=== PATIENT | female | born 1945 | race Caucasian/White ===

== ENCOUNTER 2020-03-14 11:58 | Outpatient (CLI) | payer MEDICARE, OTHER, SELFPAY ==
--- NOTE | 2020-03-14 12:08 | MM_ITS ---
WS: [id number] BILATERAL DIGITAL SCREENING MAMMOGRAPHY WITH CAD CLINICAL INFORMATION: SCREENING HISTORY: Screening mammogram. Palpable lump right breast COMPARISON: None. TECHNIQUE: Bilateral CC and MLO views. FINDINGS: The breasts are composed of heterogeneous fibroglandular density tissue, which can limit the detectio n of small underlying mass lesions. Palpable marker lower inner right breast. Underlying asymmetric d ensity measuring 5 mm. Recommend further evaluation with spot compression views and ultrasound. Additional 7 mm partially obscured nodular density left breast best seen on the cc view, inner left b reast. Further evaluation with spot compression views and ultrasound. Vascular calcification. Lucent centered calcifications. MM/[place] [id number] IMPRESSION: BI-RADS: 0-Incomplete: Need additional imaging evaluation FOLLOW UP: Need Additional Imaging RECOMMEND FURTHER EVALUATION OF THE PALPABLE NODULE WITH RIGHT DIAGNOSTIC MAMMO GRAM AND ULTRASOUND. ADDITIONAL PARTIALLY OBSCURED DENSITY LEFT BREAST. RECOMMEND LEFT DIAGNOSTIC MA MMOGRAM AND ULTRASOUND.
--- NOTE | 2020-05-31 15:50 | PC.NURSE ---
Tried to call pt several times to schedule mammography extra views. No answer. Will keep trying.
--- NOTE | 2020-06-02 09:06 | PC.NURSE ---
Called patient regarding follow up of mammogram. I explained to the patient that the radiologist recommended for pt to get additional views of breast. Patient said she did not want to come back again for another mammogram. I explained to the pt this was important so we can look closer to make sure nothing was in the breast to worry about. I explained that it was nothing they did wrong the first time, but we just need to look at it from different angles to rule out anything worrisome to make sure she doesnt need a biopsy. Pt stated she would not come back for extra views, that she would just come back next year. Curtis VALLE
== END 2020-03-14 11:59 | disposition home or self-care (01) ==
LOC: RADSHAW 12:04
PROVIDERS: PCP Family Medicine; Visit Provider Family Medicine
DX: Z12.31 Encounter for screening mammogram for malignant neoplasm of breast (principal); R92.1 Mammographic calcification found on diagnostic imaging of breast
CPT/HCPCS: 77067

== ENCOUNTER 2021-11-14 11:44 | Outpatient (CLI) | payer MEDICARE, OTHER, SELFPAY ==
--- NOTE | 2021-11-14 12:04 | XRR_ITS ---
PROCEDURE INFORMATION: Exam: XR Chest Exam date and time: 11/14/2021 12:04 PM Age: 76 years old Clinical indication: Condition or disease; Lung condition and disease; Copd; Complications not specified; Shortness of breath TECHNIQUE: Imaging protocol: XR of the chest. Views: 2 views. COMPARISON: CR Ribs LEFT w PA Chest [id number] 07/11/2019 1:32 PM FINDINGS: Lungs: Unremarkable. No consolidation. Pleural spaces: Right lower lobe pleural effusion. No pneumothorax. Heart/Mediastinum: Unremarkable. No cardiomegaly. Bones/joints: Multiple left rib fractures are seen. There is kyphoplasty lower dorsal spine. And in the L2 vertebral body.. XR/XR chest 2V insp/exp [id number] IMPRESSION: 1. No acute findings. 2. Right lower lobe pleural effusion 3. Multiple left rib fractures. 4. Kyphoplasty lower dorsal spine and lumbar spine
== END 2021-11-14 11:45 | disposition home or self-care (01) ==
LOC: RAD 11:48
PROVIDERS: PCP Family Medicine; Visit Provider Internal Medicine
DX: J44.9 Chronic obstructive pulmonary disease, unspecified (principal); J90 Pleural effusion, not elsewhere classified; S22.42XA Multiple fractures of ribs, left side, initial encounter for closed fracture; X58.XXXA Exposure to other specified factors, initial encounter
CPT/HCPCS: 71046

== ENCOUNTER 2021-11-22 10:47 | Inpatient (IN) | payer MEDICARE, OTHER, SELFPAY ==
[2021-11-22] VITALS (12 sets, daily range): BP systolic 151–179; BP diastolic 72–118; PULSE 96–113; RESP 16–30; TEMP 36.3–36.7; O2SAT 90–99; BMI 33.5
--- NOTE | 2021-11-22 11:40 | XR_ITS ---
WS: [id number] Exam: XR chest 1V portable [id number] Date/Time of Exam: 11/22/2021 11:44 AM Reason For Exam: dyspnea/cough Comparison 11/14/2021. There is cardiac enlargement with pulmonary vascular congestion suggesting CHF. Bibasal pleural effus ions are noted. No pneumothorax. The mediastinum and bony thorax are unremarkable. Monitoring leads s uperimpose the chest. Signs of vertebral plasty involving several lower thoracic vertebra. Old left r ib fractures. XR/XR chest 1V portable [id number] IMPRESSION: 1. Cardiac enlargement with pulmonary edema and bibasal pleural effusions sugge sting CHF.
[2021-11-22 12:04] LABS: Basophils # 0.1 10^3/uL (0.0-0.1); Basophils % 0.9 %; Eosinophils # 0.1 10^3/uL (0.0-0.8); Eosinophils % 0.9 %; Hematocrit 43.5 % (37.0-47.0); Lymphocytes # 1.1 10^3/uL (0.8-4.8); Lymphocytes % 11.9 %; Mean Corpuscular HGB Conc 32.2 g/dL (30.0-36.0); Mean Corpuscular Hemoglobin 29.5 pg (28.0-34.0); Mean Corpuscular Volume 91.8 fl (81-99); Mean Platelet Volume 10.7 fL (7.4-10.4); Monocytes # 0.6 10^3/uL (0.2-0.9); Monocytes % 6.8 %; Neutrophils % 79.2 %; Nucleated Red Blood Cells % 0 %; Platelet Count 235 10^3/cmm (130-400); Red Blood Count 4.74 10^6/uL (4.1-5.3); Red Cell Distribution Width 15.6 % (12.1-15.1); White Blood Count 9.1 10^3/uL (4.0-10.0)
--- NOTE | 2021-11-22 12:05 | ED_ITS ---
HPI - SOB/Dyspnea General: Chief Complaint: Shortness of Breath/Dyspnea Stated Complaint: DIFFICULTY BREATHING/ EDEMA Time Seen by Provider: 11/22/21 10:48 Source: patient Mode of arrival: EMS Limitations: no limitations History of Present Illness: HPI Narrative: 68-year-old female presents emergency room complaining of shortness of breath with increased swelling legs and feet over the last several days Patient received a nebulizer treatment at home additionally was given 6mg of Decadron in route. She has been hypertensive at home as well. She normally is not on oxygen. On arrival here she is tachycardic and conversationally dyspneic still requiring 2 L by nasal cannula she denies any fever she has had increased productive cough and notes significant increased orthopnea. Denies any chest pain at this time. Patient is a former smoker. No known history of heart disease. MD elicited complaint: shortness of breath Pertinent past history: COPD and congestive heart failure Onset (ago): day(s) Timing: intermittent and progressively worsening Severity: moderate Exacerbating factors: lying flat and coughing Relieving factors: oxygen and rest Known history of: COPD Associated symptoms: Reports nausea and orthopnea; Deny abdominal pain, chest congestion, chest pain, cough, diaphoresis, dizziness, extremity pain, fever(s), hemoptysis, lightheadedness, myalgias, palpitations, paresthesias, polydipsia, polyuria, rash, sense of impending doom, syncope or vomiting Treatment prior to arrival: none Review of Systems Const: Reports: change in appetite; Denies: fever(s), chills or diaphoresis Card: Reports: orthopnea; Denies: chest pain, palpitations, lightheadedness or syncope Resp: Reports: dyspnea, productive cough and wheezing; Denies: hemoptysis or chest congestion GI: Reports: nausea; Denies: abdominal pain or vomiting : Denies: flank pain, difficulty voiding, dysuria, urinary frequency or urinary urgency Musc: Denies: back pain or extremity pain Skin/Breast: Denies: rash or pruritus Neuro: Denies: dizziness Endo: Reports: tired all the time; Denies: polyuria or polydipsia PFS ED PFSH: Medical History Age related osteoporosis Cardiac arrest with successful resuscitation Cardiac arrest with ventricular fibrillation Chronic obstructive pulmonary disease History of rib fracture left 6, 7, 8 Hypertension Macular degeneration Nicotine dependence, cigarettes, with other nicotine-induced disorders Osteoarthritis Surgical History H/O total knee replacement right History of total hip replacement right History of tubal ligation Family History Mother CAD (coronary artery disease) in 70s from heart attack Father Cancer lung Social History Smoking and tobacco status: current every day smoker cigarettes [ Other cigarette details: Smoked since her teenage years (about 58 years)] Alcohol intake: never Substance/Drug Use: never Household members: none Number of children: 2 Physical Exam Const: ORIENTATION/CONSCIOUSNESS: Yes awake, Yes oriented to person, Yes oriented to place and Yes oriented to time HENMT: COMMON NORMALS: normocephalic, atraumatic and hearing grossly normal bilaterally HEAD & SCALP: normocephalic and atraumatic Neck/C-Spine: COMMON NORMALS: no JVD Resp: COMMON NORMALS: normal respiratory effort, No retractions, No use of accessory muscles and clear to auscultation bilaterally AUSCULTATION: clear to auscultation bilaterally Cardio: COMMON NORMALS: no JVD, regular rate, regular rhythm and No murmurs present (Cardio) RATE: regular rate RHYTHM: regular rhythm GI: COMMON NORMALS: Soft to palpation and No hepatosplenomegaly present AUSCULTATION: Yes normoactive bowel sounds PALPATION: Yes Soft to palpation, No Tenderness to palpation present (GI), No Guarding due to palpation present (GI) and Yes No hepatosplenomegaly present Extremity: COMMON NORMALS: normal to inspection, capillary refill normal and no calf tenderness Neuro: SENSORIUM/ORIENTATION: Yes oriented to person, Yes oriented to place and Yes oriented to time Course Vital Signs: Vital signs: Vital Signs Temperature 97.5 F L 11/25/21 08:00 Pulse Rate 100 11/25/21 12:43 Respiratory Rate 22 H 11/25/21 12:39 Blood Pressure 145/72 11/25/21 12:00 Pulse Oximetry 92 11/25/21 12:39 MDM - SOB/Dyspnea Medical Decision Making Patient injuries to be a new onset congestive heart failure was diuresed in the emergency room initially treated. She has COPD. Discussed with hospitalist will admit. Orders and imaging reviewed. Dr. Fitzgerald will complete admission. CT of chest showed no PE. Medical Records I reviewed the patient's medical records. Lab Data I reviewed the patient's lab results. : 11/25/21 08:30 11/25/21 08:30 Labs/Radiology: Radiology Impressions Chest CTA 11/23/21 06:00 IMPRESSION: 1. No evidence of pulmonary embolus. 2. Cardiomegaly. Coronary artery calcification. 3. Findings consistent with congestive heart failure with small effusions and mild interstitial edema. Chest X-Ray 11/25/21 06:26 IMPRESSION: No substantial interval change. Similar cardiomegaly with patchy bibasilar airspace opacities and small bilateral pleural effusions. Laboratory Results WBC 9.1 10^3/uL (4.0-10.0) 11/22/21 10:27 RBC 4.74 10^6/uL (4.1-5.3) 11/22/21 10:27 Hgb 14.0 g/dL (11.5-15.3) 11/22/21 10:27 Hct 43.5 % (37.0-47.0) 11/22/21 10:27 MCV 91.8 fl (81-99) 11/22/21 10:27 MCH 29.5 pg (28.0-34.0) 11/22/21 10:27 MCHC 32.2 g/dL (30.0-36.0) 11/22/21 10:27 RDW 15.6 % (12.1-15.1) H 11/22/21 10:27 Plt Count 235 10^3/cmm (130-400) 11/22/21 10:27 MPV 10.7 fL (7.4-10.4) H 11/22/21 10:27 Neut % (Auto) 79.2 % 11/22/21 10:27 Lymph % (Auto) 11.9 % 11/22/21 10:27 [place] % (Auto) 6.8 % 11/22/21 10:27 Eos % (Auto) 0.9 % 11/22/21 10:27 Baso % (Auto) 0.9 % 11/22/21 10: Neut # (Auto) 7.20 10^3/uL (1.8-7.7) 11/22/21 10: Lymph # (Auto) 1.1 10^3/uL (0.8-4.8) 11/22/21 10: [place] # (Auto) 0.6 10^3/uL (0.2-0.9) 11/22/21 10: Eos # (Auto) 0.1 10^3/uL (0.0-0.8) 11/22/21 10: Baso # (Auto) 0.1 10^3/uL (0.0-0.1) 11/22/21 10: Nucleated RBC % (auto) 0 % 11/22/21 10: Nucleated RBCs # 0.0 /100WBC 11/22/21 10: Specimen Type Arterial 11/22/21 12:09 Sample Site Radial, left 11/22/21 12:09 ABG pH 7.39 (7.35-7.45) 11/22/21 12:09 ABG pCO2 41.6 mmHg (35-45) 11/22/21 12:09 ABG pO2 62.7 mmHg (80.0-100.0) L 11/22/21 12:09 ABG HCO3 25.4 mmol/L (22-26) 11/22/21 12:09 ABG O2 Saturation 92.9 11/22/21 12:09 ABG Base Excess 0.4 mmol/L (-2.0-2.0) 11/22/21 12:09 Tenzin Test Pos 11/22/21 12:09 A-a O2 Gradient 11.1 mmHg (5-10) H 11/22/21 12:09 Hematocrit 43.6 % (37-47) 11/22/21 12:09 Hgb O2 Saturation 88.2 % (95-100) L 11/22/21 12:09 Carboxyhemoglobin 4.1 %THgb (0.4-20.1) 11/22/21 12:09 Methemoglobin 0.9 % (0.4-1.5) 11/22/21 12:09 Total Hemoglobin 14.2 g/dL (12-16) 11/22/21 12:09 Sodium 138.0 mmol/L (131-143) 11/22/21 12:09 Potassium 3.9 mmol/L (3.5-5.0) 11/22/21 12:09 Glucose 111.0 mg/dL (70-115) 11/22/21 12:09 Ionized Calcium 1.3 mmol/L (1.1-1.4) 11/22/21 12:09 O2 Delivery Device Nc 11/22/21 12:09 O2 Liters/Min 2.0 % 11/22/21 12:09 FiO2 28.0 % 11/22/21 12:09 Oil Rigger ID Bd 11/22/21 12:09 Sodium 137 mmol/L (136-145) 11/22/21 10:27 Potassium 3.8 mmol/L (3.5-5.1) 11/22/21 10:27 Chloride 97 mmol/L (98-107) L 11/22/21 10:27 Carbon Dioxide 24 mmol/L (22-29) 11/22/21 10:27 Anion Gap 19.8 (5-19) H 11/22/21 10:27 BUN 17 mg/dL (8-23) 11/22/21 10:27 Creatinine 1.0 mg/dL (0.5-0.9) H 11/22/21 10:27 GFR Calculation Not Reportable 11/22/21 10:27 Glucose 106 mg/dL (65-115) 11/22/21 10:27 Calculated Osmolality 286 mOsm/kg (285-295) 11/22/21 10:27 Calcium 10.2 mg/dL (8.5-10.5) 11/22/21 10:27 Total Bilirubin 0.5 mg/dL (0.15-1.2) 11/22/21 10:27 AST 35 U/L (0-32) H 11/22/21 10:27 ALT 40 U/L (0-33) H 11/22/21 10:27 Alkaline Phosphatase 134 IU/L (35-105) H 11/22/21 10:27 Troponin T Baseline 32 ng/L (0-10) H 11/22/21 14:42 NT-Pro-B Natriuret Pep 80382 pg/mL (0-450) H 11/22/21 10:27 Total Protein 7.0 g/dL (6.6-8.7) 11/22/21 10:27 Albumin 3.8 g/dL (3.5-5.2) 11/22/21 10:27 Globulin 3.2 g/dL (1.3-4.6) 11/22/21 10:27 Procalcitonin 0.06 ng/mL (0-0.5) 11/22/21 10:27 Discharge Plan Discharge Patient Disposition: Admitted As Inpatient Admit Provider: Eileen Kearney Clinical Impression: CHF (congestive heart failure), Acute exacerbation of chronic obstructive airways disease, Hypertension Condition: Stable Coding Level of Care Code ED Shopping Investigator for Chg Fwd Exam Detailed
[2021-11-22] MEDS: ipratropium-albuterol 3 mL Neb INHALATION ×2 (12:14→21:05)
[2021-11-22 12:17] LABS: ABG PCO2 41.6 mmHg (35-45); ABG PH Result 7.39 (7.35-7.45); Alveolar-Arterial Oxygen Gradi 11.1 mmHg (5-10); Arterial Blood Gas Hematocrit 43.6 % (37-47); Base Excess ABG 0.4 mmol/L (-2.0-2.0); Blood Gas Allen Test Pos; Blood Gas Operator Identificat BD; Blood Gas Sample Site Radial, left; Blood Gas Sample Type Arterial; Carboxyhemoglobin 4.1 %THgb (0.4-20.1); HCO3 ABG 25.4 mmol/L (22-26); HGB O2 Sat 88.2 % (95-100); Ionized Calcium Level - ABG 1.3 mmol/L (1.1-1.4); Methemoglobin 0.9 % (0.4-1.5); Oxygen Device NC; Oxygen Saturation ABG 92.9; PO2 ABG 62.7 mmHg (80.0-100.0); Potassium Level - ABG 3.9 mmol/L (3.5-5.0); Total Hemoglobin 14.2 g/dL (12-16)
[2021-11-22 13:11] LABS: Alanine Aminotransferase 40 U/L (0-33); Albumin Level 3.8 g/dL (3.5-5.2); Alkaline Phosphatase 134 IU/L (35-105); Anion Gap 19.8 (5-19); Aspartate Amino Transferase 35 U/L (0-32); Blood Urea Nitrogen 17 mg/dL (8-23); Calcium 10.2 mg/dL (8.5-10.5); Carbon Dioxide 24 mmol/L (22-29); Chloride 97 mmol/L (98-107); Globulin 3.2 g/dL (1.3-4.6); Glucose 106 mg/dL (65-115); NT Pro B Type Natriuretic Pept 22267 pg/mL (0-450); Osmolality Calculated 286 mOsm/kg (285-295); Potassium 3.8 mmol/L (3.5-5.1); Sodium 137 mmol/L (136-145); Total Bilirubin 0.5 mg/dL (0.15-1.2)
--- NOTE | 2021-11-22 14:11 | ECG_ITS ---
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 Measurements Intervals [place] Rate: 106 P: 62 WA: 171 QRS: -31 QRSD: 92 T: 60 QT: 369 QTc: 491 Interpretive Statements SINUS TACHYCARDIA WITH OCCASIONAL VENTRICULAR PREMATURE COMPLEXES WITH FREQUENT SUPRAVENTRICULAR PREMATURE COMPLEXES LEFT AXIS DEVIATION [QRS AXIS < -30] POSSIBLE ANTERIOR MYOCARDIAL INFARCTION , OF INDETERMINATE AGE [30 ms Q WAVE IN V3/V4, OR R < 0.2 mV IN V4] Compared to ECG 11/19/2017 20:07:06 Left-axis deviation now present Myocardial infarct finding now present Sinus rhythm no longer present T-wave abnormality no longer present Electronically Signed On 11-22-2021 22:14:44 CDT by Jona Crawford M.D. [id number]
--- NOTE | 2021-11-22 14:20 | PC.PHAR ---
pt and pts friend states the pt takes care of her own medications-pt states she use to get a prolia shot states she had a scan but never heard back if she was going to still take -pt states she takes the medications entered
[2021-11-22] MEDS: FUROsemide 10 mg/mL SDV 10mL 60 MG IVP (14:28)
[2021-11-22 15:14] LABS: Troponin(5th) Baseline 32 ng/L (0-10)
--- NOTE | 2021-11-22 15:38 | P.HP_ITS ---
Providers/Chief Complaint Admitting Physician: Eileen Kearney MD Primary Care Provider: Kelley Jimenez MD Chief Complaint: DIFFICULTY BREATHING/ EDEMA History of Present Illness Surekha Villalobos is a 76 year old female who presented to the emergency room via EMS due to difficulty breathing. Patient is a longtime smoker and has had some degree of shortness of breath and wheezing intermittently for soome time. Never seemed to last too long. She describes, however, her breathing getting slowly worse over the past 6 months or so. Over the last 3 months her breathing has more rapidly declined. She resides in a typical single wide trailer and used to be able to walk around that trailer without difficulty or having to rest frequently. Now she cannot even walk half the distance without having to stop, sometimes even a couple of times, to catch her breath on way to bathroom which is near the middle of the trailer. She has laos been having increasing lower extremity edema, orthopnea and PND. Sometime within the last month she was prescribed puffers by her report. They have not really provided much help. She has not been on recent steroids and antibiotics. She has tried several over the counter options without success, including Breathe Right or similar strips. She does describe some episodes of chest pain occurring after using her puffers but denies chest pain otherwise. No reports of nausea or vomiting. Has not had any recent fever or chills. She has been COVID vaccinated. Denied any history of COVID. She lives alone and until recently has been able to take care of her activities of daily living with some assistance to go to store and the like. She admits that she now spends most of her time sitting in a chair with her legs hanging down. As her edema has worsened her breathing has worsened. Today she says she is wore out from all of this prompting the ER visit. On arrival to the emergency room, patient was noted to be tachycardic and hypoxic. She is not chronically on oxygen but was requiring oxygen at 2 L flow. She has never req uired oxygen previously. Clinically she appeared to have fluid overload. She was given some Lasix as well as breathing treatments and is being admitted for further care. No personal history of coronary artery disease. She does have a history of hypertension. No recent medication changes beyond breathing medicines. No known kidney disease. Has not been diagnosed with heart failure in the past. Review of Systems Const: Reports: change in appetite (Decreased), fatigue and malaise; Denies: fever(s) or chills Eyes: Reports: other (macular degeneration) ENMT: Denies: throat pain or nasal congestion Card: Reports: chest pain (after using inhalers, not other times), edema, dyspnea on exertion and orthopnea; Denies: palpitations or syncope Resp: Reports: dyspnea, productive cough, non-productive cough and wheezing; Denies: pain on inspiration, change in phlegm color or hemoptysis GI: Reports: nausea and diarrhea; Denies: abdominal pain, vomiting, constipation, hematochezia or melena : Reports: urinary incontinence; Denies: difficulty voiding or hematuria Musc: Reports: back pain and muscle weakness Skin/Breast: Reports: sores (on nose, from use of breathe right strips last couple weeks); Denies: rash or pruritus Neuro: Reports: weakness in extremities (generalized) and difficulty walking (due to breathing issues); Denies: headache(s) or numbness in extremities Psych: Reports: depression ( wore out from breathing trouble); Denies: anxiety Endo: Reports: tired all the time and flushing Mason/Lymph: Denies: easy bruising or easy bleeding All/Imm: Denies: seasonal rhinorrhea Medications/Allergies Home Medications Medication Instructions Recorded Confirmed Last Taken Type calcium carbonate 600 mg calcium 1,200 mg PO BEDTIME 11/03/21 11/22/21 Unknown History (1,500 mg) tablet (Calcium) cholecalciferol (vitamin D3) 50 50 mcg PO DAILY 11/03/21 11/22/21 Unknown History mcg (2,000 unit) capsule cinnamon bark 500 mg capsule 500 mg PO .EIGHT TIMES A DAY 11/03/21 11/22/21 Unknown History coenzyme Q10 100 mg capsule (Co 100 mg PO QAM 11/03/21 11/22/21 Unknown History Q-10) albuterol sulfate 90 mcg/actuation 1 inh INHALATION QID PRN #8.5 g 11/14/21 11/22/21 Unknown Rx aerosol inhaler (ProAir HFA) budesonide-formoterol HFA 160 2 puff INHALATION BID #10.2 g 11/14/21 11/22/21 Unknown Rx mcg-4.5 mcg/actuation aerosol inhaler (Symbicort) tiotropium bromide 1.25 2 puff INHALATION DAILY #4 g 11/14/21 11/22/21 Unknown Rx mcg/actuation mist for inhalation (Spiriva Respimat) Vitamin B-12 1 tab PO DAILY 11/22/21 11/22/21 Unknown History aspirin 325 mg tablet 325 mg PO DAILY 11/22/21 11/22/21 Unknown History ciaran (Zingiber officinalis) 550 550 mg PO DAILY 11/22/21 11/22/21 Unknown History mg capsule ginkgo biloba 1 tab PO DAILY 11/22/21 11/22/21 Unknown History green tea leaf extract (Green Tea) 1 cap PO DAILY 11/22/21 11/22/21 Unknown History multivitamin 1 tab PO DAILY 11/22/21 11/22/21 Unknown History niacin 1 tab PO QAM 11/22/21 11/22/21 Unknown History vitamin B complex 1 tab PO DAILY 11/22/21 11/22/21 Unknown History Allergies Allergy/AdvReac Type Severity Reaction Status Date / Time acetaminophen [From [place]] Allergy ALGY-Difficulty Verified 11/22/21 14:02 Breathing codeine Allergy ALGY-Difficulty Verified 11/22/21 14:02 Breathing hydrocodone [From [place]] Allergy ALGY-Difficulty Verified 11/22/21 14:02 Breathing PFSH Acute PFSH: Medical History (Updated 11/22/21 @ 19:00 by Eileen Kearney MD) Age related osteoporosis Chronic obstructive pulmonary disease History of rib fracture left 6, 7, 8 Hypertension Macular degeneration Nicotine dependence, cigarettes, with other nicotine-induced disorders Osteoarthritis Surgical History (Updated 11/22/21 @ 16:52 by Eileen Kearney MD) 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 Mother CAD (coronary artery disease) in 70s from heart attack Father Cancer lung Social History (Updated 11/22/21 @ 17:10 by Eileen Kearney MD) Smoking and tobacco status: current every day smoker cigarettes [ Other cigarette details: Smoked since her teenage years (about 58 years)] Alcohol intake: never Substance/Drug Use: never Household members: none Number of children: 2 Vitals/I&O/Wt Last Vital Signs Temp 98.1 F 11/22/21 10:53 Pulse 111 H 11/22/21 14:32 Resp 16 11/22/21 14:32 BP 179/82 11/22/21 14:32 Pulse Ox 96 11/22/21 14:32 Weight last 48 hrs Weight 88.451 kg Physical Exam Narrative: Constitutional: Awake and alert, acutely and chronically ill-appearing, initially appeared to not be able to fixate where I was in the room but after a few moments seem to not have further difficulty with this, history is obtained from her though it takes her some time to answer questions due to difficulty breathing and soft voice, cooperative HEENT: Normocephalic, atraumatic, extraocular movements are intact, pupils are equally round and reactive to light, nasopharynx is clear, oropharynx with moist mucous membranes, upper and lower dentures noted Neck: Supple, JVD noted up to the earlobe with prominent venous waves Respiratory: Inspiratory and expiratory wheezes noted bilaterally, mild supraclavicular retractions and intercostal retractions, no abdominal breathing although current positioning in ER bed may be impacting this, able to talk in approximately 3-5 word groupings right now pausing to take of breath at times, no pursed lip breathing appreciated, no nasal flaring, sitting up in bed. Increased dyspnea with supine positioning. Cardiovascular: Tachycardic, distant heart sounds obscured by pulmonary sounds, regular, no discernible murmurs or rubs 1+ radial pulses, dorsalis pedis pulses are weaker than radial pulses but palpable, brisk capillary refill is noted Abdomen: Soft, quite rounded in upright positioning in ER bed though not as discernible when laid more supine, bowel sounds, nontender : Normal external genitalia, minimal erythema in intertriginous areas more so on the right than the left, Rubio catheter noted with approximately 1700 mL of urine, clear and faintly yellow Extremities: 4+ pitting edema, no weeping noted, general tenderness in areas of edema, right lower extremity is slightly larger than left lower extremity at the mid ward but less than a centimeter difference, no appreciable focal calf ten derness or palpable cords, both feet are cool to touch but not cyanotic, clubbing noted Skin: Chronic stasis changes with some areas of desquamating skin appreciated, no areas of significant warmth, scattered erythema but not in a discernible pattern, no large areas of bruising appreciated Neuro: Speech clear, visual murillo appear grossly intact, face symmetric, speech is clear, handgrip is equal, sensation is intact and equal to light touch at b oth feet Psych: Seems down, affect consistent with current clinical condition Urinary Catheter Management: Rubio: Cath Placed During This Visit: yes Urinary Catheter Date of Insertion: 11/22/21 Urinary Catheter Time of Insertion: 14:33 Data : 11/22/21 10:27 11/22/21 10:27 A&P Assessment and plan (1) CHF (congestive heart failure): New diagnosis, specific type unknown at this time, decompensated presently, acute IV diuresis Potassium replacement as indicated Rubio catheter for close monitoring of urine output Daily weights Echocardiogram Add LOBO inhibitor Serial cardiac enzymes and EKGs Status: Acute Qualifiers: Heart failure chronicity: acute (2) Chronic obstructive pulmonary disease: Chronic issue that appears to have been recently diagnosed, with recent initiation of scheduled and as needed inhalers. On examination appears acutely exacerbated, though wheezing could be cardiac or pulmonary. Scheduled and as needed duo nebs Budesonide Continue systemic steroids, received 125 of Solu-Medrol in the emergency room Check procalcitonin Prior to discharge for need to evaluate if meets criteria for home oxygen Status: Chronic Qualifiers: COPD type: COPD with acute exacerbation Qualified Code(s): J44.1 - Chronic obstructive pulmonary disease with (acute) exacerbation (3) Hypertension: Reports a longstanding history of hypertension but also indicates that she takes niacin for hypertension. Provided history indicates primary hypertension diagnosis but could also be secondary. Monitor blood pressure response to IV diuresis and low-dose LOBO inhibitor Adjust discharge medication plan as indicated by clinical course Status: Chronic Qualifiers: Hypertension type: primary hypertension Qualified Code(s): I10 - Essential (primary) hypertension (4) Nicotine dependence, cigarettes, with other nicotine-induced disorders: ~60 pack year history, does express interest in wanting to quit, has tried many times unsuccessfully really making it more than a couple of days Nicotine patch if needed Encouraged repeated attempts at smoking cessation Status: Chronic Plan Mild elevation in transaminases, presently feel secondary to congestion Inpatient admission Check TSH Check D-dimer Check lipid panel Reduce daily aspirin to 81 mg Beyond continuing similar respiratory medications, I have held all vitamins and herbal medications that she normally takes presently, will need to review utility of continued use of various agents pending clinical outcomes. For exam ple whether or not patient should continue niacin, particularly with side effect profile at her age. Looking at some of the herbal medicines that she takes it would also be worthwhile to know if she takes pure formulations or if they may have additives that might impact blood pressures. Check urinalysis PPI for GI prophylaxis Lovenox for DVT prophylaxis Supportive care otherwise Further plans pending clinical course Patient's daughter KOURTNEY OBRIEN [phone] her way here from [facility]. Family had originally planned to come and get Mrs. Villalobos at the end of December to take her back to [place] to live with Kourtney. With progressive decline they had hoped to come sooner in December but with the acute issues left [place] today 11/22/2021. They are heading to [place] and will plan on taking Mrs. Villalobos back to [place] with them when she is medically stable for discharge. Findings, concerns and plans were discussed with both Mrs. Rodriguez as well as her daughter although I lost connection to her daughter several times and had poor connection as well with them being on the road. She did seem to understand the general plan as described. We will ask case management to see to assist with potential disposition planning given anticipated discharge to another state. We will need to facilitate transfer of records and medications and other instructions for discharge to whomever will be assuming care in [place] if we are able. CODE STATUS was discussed and patient requests that we talked to the daughter if such a situation were to arise. I have entered a full code diagnosis based on this discussion. Attestations Medical Necessity Statement*: Anticipated stay greater than two midnights in a patient presenting with volume overload, significant dyspnea requiring oxygen therapy and other findings as described. Clinically looks to have new onset CHF, acutely decompensated. E jection fraction unknown at this point in time but given apparent total body volume overload will require several days of diuresis in addition to other care described. High risk of rapid clinical decline up to and including the possibility of without inpatient care, treatment and monitoring. Coding Level of Care Code Acute Investigator Welfare for [place] Diagnoses CHF (congestive heart failure) I50.9 Heart failure chronicity: acute Chronic obstructive pulmonary disease J44.1 COPD type: COPD with acute exacerbation Nicotine dependence, cigarettes, with other nicotine-induced disorders F17.218 Hypertension I10 Hypertension type: primary hypertension
--- NOTE | 2021-11-22 16:11 | ECG_ITS ---
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 Measurements Intervals [place] Rate: 98 P: 51 NH: 169 QRS: -20 QRSD: 91 T: 6 QT: 381 QTc: 487 Interpretive Statements SINUS RHYTHM WITH SINUS ARRHYTHMIA NONSPECIFIC T-WAVE ABNORMALITY Compared to ECG 11/22/2021 14:15:24 T-wave abnormality now present Sinus tachycardia no longer present Ventricular premature complex(es) no longer present Left-axis deviation no longer present Myocardial infarct finding no longer present Electronically Signed On 11-22-2021 22:23:31 CDT by Jona Crawford M.D. [id number]
--- NOTE | 2021-11-22 16:27 | USCV_ITS ---
[place], [place] Age: 76 Gender: F : 1945 Exam Date: 11/22/2021 18:53 Ordering Phys: Pacheco Lantigua DO Technologist: MERCED Exam Location: [facility] [place] Indication: CHF BP: 172 / 81 HR: 98 Rhythm: Sinus Technical Quality: Adequate MEASUREMENTS (Male / Female) Normal Values 2D ECHO LV Diastolic Diameter PLAX 5.6 cm 4.2 - 5.9 / 3.9 - 5.3 cm LV Systolic Diameter PLAX 4.8 cm IVS Diastolic Thickness 1.0 cm 0.6 - 1.0 / 0.6 - 0.9 cm IVS Systolic Thickness 1.5 cm LVPW Diastolic Thickness 1.2 cm 0.6 - 1.0 / 0.6 - 0.9 cm LVPW Systolic Thickness 1.6 cm LVOT Diameter 2.0 cm LV Ejection Fraction 2D Teich 27.8 % LV Ejection Fraction MOD 2C 19.1 % LV Ejection Fraction 2C AL 19.4 % LA Diameter 3.7 cm LA Width 3.8 cm LA Height 5.4 cm RA Width 5.3 cm RA Height 5.6 cm Aorta at Sinotubular Diameter 1.9 cm M-MODE Aortic Annulus Diameter 2.8 cm LA Ao Ratio MM 1.3 MV E Point Septal Separation 1.8 cm DOPPLER AV Peak Velocity 199.0 cm/s LVOT Peak Velocity 117.0 cm/s AV Area Cont Eq vti 2.1 cm squared AV Area Cont Eq pk 1.9 cm squared MV Peak Velocity 91.0 cm/s MV Area PHT 5.9 cm squared Mitral E to A Ratio 0.9 MV E' Velocity 83.0 cm/s TR Peak Velocity 173.9 cm/s TR Peak Gradient 12.1 mmHg TR Mean Velocity 105.4 cm/s TR Mean Gradient 6.6 mmHg TR Velocity Time Integral 27.2 cm Right Atrial Pressure 10.0 mmHg Pulmonary Artery Systolic Pressu 22.1 mmHg PV Peak Velocity 87.0 cm/s RV Acceleration Time 0.1 s RV Ejection Time 0.3 s RV AcT/ET 0.4 FINDINGS Left Ventricle Mildly dilated left ventricular cavity size. Moderately decreased left ventricular systolic function. Left ventricular ejection fraction is estimated at 30 %. Global left ventricular hypokinesis. Abnormal septal motion. Right Ventricle Normal right ventricular size and systolic function. RVSP could not be calculated due to incomplete tricuspid regurgitation velocity profile. Right Atrium Mildly increased right atrial size. Left Atrium Mildly increased left atrial size. Mitral Valve Moderate mitral annular calcification. Thickened mitral valve. Papillary calcification noted. No mitral valve stenosis. Trace mitral valve regurgitation. Aortic Valve Thickened probably trileaflet aortic valve. Aortic valve sclerosis. No aortic valve stenosis. Moderate aortic valve regurgitation. Tricuspid Valve Structurally normal tricuspid valve. Trace tricuspid valve regurgitation. Pulmonic Valve Structurally normal pulmonic valve. No pulmonary valve stenosis. No pulmonary valve regurgitation. Pericardium Trivial pericardial effusion. No evidence of hemodynamic compromise. Aorta Normal-sized aortic root. Plaque noted in aortic root. CONCLUSIONS 1. Mildly dilated left ventricular cavity size. Moderately decreased left ventricular systolic function. Left ventricular ejection fraction is estimated at 30 %. Global left ventricular hypokinesis. Abnormal septal motion. 2. Normal right ventricular size and systolic function. 3. Aortic valve sclerosis with no stenosis. Moderate aortic valve regurgitation. 4. No prior similar studies to compare. Daisy Campoverde MD (Electronically Signed) Final Date: 23 November 2021 13:51 S
--- NOTE | 2021-11-22 16:42 | PC.NURSE ---
hr: 113 o2: 95 nc 2l rr: 36 bp: 180/85 temp: 97.9 oral
--- NOTE | 2021-11-22 16:45 | PC.NURSE ---
patient weight is 195.0 lbs approximately 5'4
[2021-11-22 17:15] LABS: Add Urine Microscopic? NO; Charge for UA Resulting for Rev
[2021-11-22 17:30] LABS: Bilirubin Urine Neg (Negative); Blood Urine Neg (Negative); Glucose Urine UA Norm (Normal); Ketones Urine Negative (Negative); Leukocyte Esterase Urine Negative (Negative); Nitrate Urine Negative (Negative); Protein Urine Neg (Negative); Specific Gravity, Urine 1.005 (1.005-1.030); Urine Appearance Clear (CLEAR); Urine Color Colorless (Yellow); Urobilinogen Urine Neg (Negative); pH Urine 6 (5-7)
[2021-11-22 17:38] LABS: Procalcitonin 0.06 ng/mL (0-0.5)
[2021-11-22] MEDS: enoxaparin 40 mg/0.4 mL Syringe SUBCUT (17:51)
[2021-11-22] MEDS: docusate sodium 100 mg Capsule PO (17:51)
[2021-11-22] MEDS: potassium chloride ER 20 mEq Tablet PO (17:51)
[2021-11-22 18:11] LABS: D Dimer 2.65 ug/mIFEU (0-0.59)
[2021-11-22 18:15] LABS: Troponin 5 2HR 30.44 ng/L (0-10)
[2021-11-22 18:16] LABS: Troponin 5 2HR Delta -1.56 ABS# (0-10)
[2021-11-22] MEDS: lisinopril 2.5 mg Tablet PO (19:18)
--- NOTE | 2021-11-22 20:11 | ECG_ITS ---
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 Measurements Intervals [place] Rate: 97 P: 51 LA: 175 QRS: -19 QRSD: 93 T: -35 QT: 369 QTc: 470 Interpretive Statements SINUS RHYTHM POSSIBLE ANTERIOR MYOCARDIAL INFARCTION , OF INDETERMINATE AGE [30 ms Q WAVE IN V3/V4, OR R < 0.2 mV IN V4] Compared to ECG 11/22/2021 17:01:20 Myocardial infarct finding now present Sinus arrhythmia no longer present T-wave abnormality no longer present Electronically Signed On 11-22-2021 22:19:16 CDT by Jona Crawford M.D. [id number]
[2021-11-22] MEDS: budesonide 0.5 mg/2 mL Neb INHALATION (21:05)
[2021-11-22 21:19] LABS: Troponin 5 6HR 28.81 ng/L (0-10)
[2021-11-22 21:22] LABS: Troponin 5 6HR Delta -3.19 ng/L (0-12)
[2021-11-22] MEDS: FUROsemide 10 mg/mL SDV 4mL 40 MG IVP (21:29)
[2021-11-23] VITALS (131 sets, daily range): BP systolic 83–176; BP diastolic 45–138; PULSE 0–163; RESP 6–35; TEMP 36.2–36.9; O2SAT 84–100
[2021-11-23] MEDS: iohexol 350 mg/mL 100 mL Btl IV (05:00)
[2021-11-23] MEDS: FUROsemide 10 mg/mL SDV 4mL 40 MG IVP (05:05)
[2021-11-23 05:34] LABS: Basophils % 0.2 %; Hemoglobin 12.8 g/dL (11.5-15.3); Lymphocytes # 0.3 10^3/uL (0.8-4.8); Lymphocytes % 4.1 %; Mean Corpuscular HGB Conc 32.8 g/dL (30.0-36.0); Mean Corpuscular Hemoglobin 29.8 pg (28.0-34.0); Mean Corpuscular Volume 90.7 fl (81-99); Mean Platelet Volume 10.7 fL (7.4-10.4); Monocytes # 0.2 10^3/uL (0.2-0.9); Monocytes % 3.5 %; Neutrophils # 5.51 10^3/uL (1.8-7.7); Neutrophils % 91.4 %; Nucleated Red Blood Cells % 0 %; Platelet Count 198 10^3/cmm (130-400); Red Cell Distribution Width 15.7 % (12.1-15.1)
[2021-11-23 05:48] LABS: INR 1.13 (0.8-1.2); Partial Thromboplastin Time 27.8 SECONDS (23.9-36.7)
[2021-11-23 06:00] LABS: Alanine Aminotransferase 35 U/L (0-33); Albumin Level 3.3 g/dL (3.5-5.2); Alkaline Phosphatase 110 IU/L (35-105); Anion Gap 13.9 (5-19); Aspartate Amino Transferase 28 U/L (0-32); Blood Urea Nitrogen 17 mg/dL (8-23); Calcium 8.3 mg/dL (8.5-10.5); Carbon Dioxide 31 mmol/L (22-29); Chloride 97 mmol/L (98-107); Chol HDL Ratio 3.15 mg/dL (0.0-4.40); Cholesterol 145 mg/dL (0-200); Globulin 2.8 g/dL (1.3-4.6); Glucose 136 mg/dL (65-115); HDL Cholesterol 46 mg/dL (60-100); LDL Cholesterol Calculated 87 mg/dL (50-129); LDL HDL Ratio 1.89 RATIO (0.00-3.22); Magnesium 1.5 mg/dL (1.7-2.3); Osmolality Calculated 290 mOsm/kg (285-295); Phosphorus 4.5 mg/dL (2.5-4.5); Potassium 3.9 mmol/L (3.5-5.1); Sodium 138 mmol/L (136-145); Thyroid Stimulating Hormone 0.85 uIU/mL (0.27-4.20); Total Bilirubin 0.5 mg/dL (0.15-1.2); Total Protein 6.1 g/dL (6.6-8.7); Triglycerides 62 mg/dL (0-150)
--- NOTE | 2021-11-23 06:00 | CTR_ITS ---
PROCEDURE INFORMATION: Exam: CTA Chest With Contrast Exam date and time: 11/23/2021 4:52 AM Age: 76 years old Clinical indication: Abnormal findings; Abnormal diagnostic tests; Elevated d-dimer; Dyspnea and shortness of breath; Prior surgery; Surgery type: Kyphoplasty; Patient HX: SOB with dyspnea and hypoxia. Elevated d dimer. ; Additional info: Dyspnea, hypoxemia, elavated d dimer, aa gradient, smoker, intentionally ordered for am 11/23 to allow time for diuresis TECHNIQUE: Imaging protocol: Computed tomographic angiography of the chest with contrast. 3D rendering (Not supervised by radiologist): MIP and/or 3D reconstructed images were created by the technologist. Radiation optimization: All CT scans at this facility use at least one of these dose optimization techniques: automated exposure control; mA and/or kV adjustment per patient size (includes targeted exams where dose is matched to clinical indication); or iterative reconstruction. Contrast material: OMNI 350; Contrast volume: 67 ml; Contrast route: INTRAVENOUS (IV); COMPARISON: CT Chest/Abdomen/Pelvis w IV* 07/11/2019 1:23 PM RADIATION DOSE METRICS: Total DLP (mGy-cm): 567.37 FINDINGS: Pulmonary arteries: Normal. No pulmonary emboli. Aorta: The thoracic aorta is calcified. There is no thoracic aortic aneurysm. Lungs: There are mild hazy interstitial infiltrates with small bilateral pleural effusions and basilar atelectasis consistent with heart failure. Pleural spaces: No pneumothorax. Heart: Cardiomegaly. There is calcification of the coronary arteries. There is a small pericardial effusion. Lymph nodes: Unremarkable. No enlarged lymph nodes. Bones/joints: Patient has undergone 4 levels of vertebroplasty for old compression fractures. There are multiple other compression fractures which appear old. Soft tissues: Unremarkable. CT/CT angio chest PE protcl [id number] IMPRESSION: 1. No evidence of pulmonary embolus. 2. Cardiomegaly. Coronary artery calcification. 3. Findings consistent with congestive heart failure with small effusions and mild interstitial edema.
[2021-11-23] MEDS: ipratropium-albuterol 3 mL Neb INHALATION ×4 (08:00→20:00)
[2021-11-23] MEDS: budesonide 0.5 mg/2 mL Neb INHALATION ×2 (08:00→20:00)
[2021-11-23] MEDS: aspirin 81 mg EC Tablet PO (08:22)
[2021-11-23] MEDS: lisinopril 2.5 mg Tablet PO (08:22)
[2021-11-23] MEDS: potassium chloride ER 20 mEq Tablet PO (08:22)
[2021-11-23] MEDS: docusate sodium 100 mg Capsule PO (08:22)
[2021-11-23] MEDS: pantoprazole DR 40 mg Tablet PO (08:22)
--- NOTE | 2021-11-23 10:19 | PC.CHAP ---
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 hat cleaner visit [] Patient/Family/Request visit [] Outpatient visit [] Follow-up visit [] Physician referral [] Code/Alert [x] Routine visit [] Staff referral [] Actively dying [] Patient sleeping [] Family support [] [] Out of room [] Palliative care [] [] Receiving care in room [x] Pre-surgical visit [] Trauma [x] Long length of stay [] ICU visit [] Other: Relational/Emotional Strength [x] Patient feels connected with others/family/visitors/staff [] Distress [] Loneliness/isolation [] Abandonment Spirituality of Patient [x] Person of Janet [] Attends Pentecostal of their Janet [x] Believes in Prayer [] Reads Bible or Mormonism materials [] There are Spiritual issues to be addressed Business English Instructor Interventions [x] Prayer [x] Active listening [x] Non-anxious presence [x] Spiritual/emotional support [] Crisis/trauma care [x] Spiritual counseling [] Bereavement support [] Provided bereavement packet [] Provided Bible/devotional materials [] Provided toy/stuffed animal, coloring book to patient or family member [] Provided Communion [] Anointing/Scott [] Salvation [x] Completed spiritual assessment [] Other: Impact on Illness or Injury [] Angry [x] Fearful [] Anxious [] Often cries [] Exhaustion [x] Unable to work [] Unable to attend scientologist [] Unable to walk/stand [] Unable to read [] Unable to drive [] Unable to eat/drink [] Unable to sleep [] Unable to be with family [] Patient intubated [] Other: Summary senior negative health problems unable to communicate about her health Time spent with patient 10 mins
[2021-11-23 12:33] LABS: Iron 28 ug/dL (37-145); Percent Saturation 9.9 % (20-50); Total Iron Binding Capacity 282 mcg/dl; Unsaturated Iron Binding 254 ug/dL (112-347)
[2021-11-23] MEDS: acetaminophen 325 mg Tablet 650 MG PO (13:49)
--- NOTE | 2021-11-23 15:25 | P.PN_ITS ---
Subjective Subjective: Hospital course, labs appreciated. Admitted yesterday. Examination today sitting up in chair on nasal cannula saturating 95%. Family at bedside. Patient states she has been having difficulty in breathing since March. States difficulty in breathing got exacerbated post her COVID vaccination. She has been vaccinated twice with Moderna vaccine. States she is a long-term COPD here with chronic smoking. Complaining of orthopnea and PND which has been getting worse. Also states that she has been having occasional episodes of chest pain which has been central exacerbated by exertion. States she has not been able to sleep in bed for a long time. Denies any nausea, vomiting currently. States she is feeling really tired. Vitals/I&O/Wt Last Vital Signs Temp 98.4 F 11/23/21 07:08 Pulse 97 11/23/21 11:21 Resp 28 H 11/23/21 11:21 BP 131/68 11/23/21 11:21 Pulse Ox 95 11/23/21 11:21 11/23/21 11/23/21 11/23/21 06:59 14:59 22:59 Intake Total 480 / 480 Output Total 1750 / 4500 1950 / 1950 Balance -1750 / -4500 -1470 / -1470 Weight last 48 hrs Weight 86.908 kg Weight 88.451 kg Physical Exam Narrative: Constitutional: Awake and alert, acutely and chronically ill-appearing, HEENT: Normocephalic, atraumatic, extraocular movements are intact, pupils are equally round and reactive to light, nasopharynx is clear, oropharynx with moist mucous membranes, upper and lower dentures noted Neck: Supple, JVD noted up to the earlobe with prominent venous waves Respiratory: Inspiratory and expiratory wheezes noted bilaterally, mild supraclavicular retractions and intercostal retractions, no abdominal breathing, able to talk in complete sentences without difficulty in breathing, no pursed lip breathing appreciated, no nasal flaring, sitting up in bed. Increased dyspnea with supine positioning. Cardiovascular: Tachycardic, distant heart sounds obscured by pulmonary sounds, regular, no discernible murmurs or rubs 1+ radial pulses, dorsalis pedis pulses are weaker than radial pulses but palpable, brisk capillary refill is noted Abdomen: Soft, quite rounded in upright positioning in ER bed though not as discernible when laid more supine, bowel sounds, nontender : Normal external genitalia, minimal erythema in intertriginous areas more so on the right than the left, Rubio catheter noted with approximately 1700 mL of urine, clear and faintly yellow Extremities: 4+ pitting edema, no weeping noted, general tenderness in areas of edema, right lower extremity is slightly larger than left lower extremity at the mid ward but less than a centimeter difference, no appreciable focal calf tenderness or palpable cords, both feet are cool to touch but not cyanotic, clubbing noted Skin: Chronic stasis changes with some areas of desquamating skin appreciated, no areas of significant warmth, scattered erythema but not in a discernible pattern, no large areas of bruising appreciated Neuro: Speech clear, visual murillo appear grossly intact, face symmetric, speech is clear, handgrip is equal, sensation is intact and equal to light touch at both feet Psych: Seems down, affect consistent with current clinical condition Urinary Catheter Management: Rubio: Cath Placed During This Visit: yes Reason for Continuing Indwelling Catheter: Accurate Measurement of Urinary Output in Critically Ill Patients Urinary Catheter Date of Insertion: 11/22/21 Urinary Catheter Time of Insertion: 14:33 Data : 11/23/21 05:04 11/23/21 05:04 Micro: Microbiology 11/22/21 17:00 Bacterial Antigens - Final Urine Kidney 11/22/21 17:00 Legionella Urinary Antigen - Final Unknown Source A&P Assessment and plan (1) CHF (congestive heart failure): New diagnosis, specific type unknown at this time, decompensated presently, acut e Echocardiogram results awaited. Food restriction up to 1500 cc. Strict input output charting. IV Lasix 80 mg twice daily. Cannot rule out underlying CAD. Once patient is euvolemic we will need to get cardiac stress test to rule out ischemia. Once more euvolemic we will start patient on heart failure medications including LOBO inhibitor, spironolactone and beta-virgilio. Cannot rule out biventricular failure given history of COPD. Telemetry. Status: Acute Qualifiers: Heart failure chronicity: acute (2) Chronic obstructive pulmonary disease: Chronic issue that appears to have been recently diagnosed, with recent initiation of scheduled and as needed inhalers. On examination appears acutely exacerbated, though wheezing could be cardiac or pulmonary. DuoNebs every 6 hour, budesonide twice daily. Supplementation keeping saturation over 88%. Solu-Medrol 40 mg IV every 12 hourly for now. Low suspicion of underlying pneumonia for now. MRSA swab, sputum culture. BiPAP ventilation when resting or sleeping. Patient is agreeable to try. Status: Chronic Qualifiers: COPD type: COPD with acute exacerbation Qualified Code(s): J44.1 - Chronic obstructive pulmonary disease with (acute) exacerbation (3) Hypertension: Goal blood pressure less than 140/90 mmHg. Will consider diuresis for now. We will plan for heart failure medications to be introduced within next 48 hours depending on symptoms and hemodynamics. Status: Chronic Qualifiers: Hypertension type: primary hypertension Qualified Code(s): I10 - Essential (primary) hypertension (4) Nicotine dependence, cigarettes, with other nicotine-induced disorders: ~60 pack year history, does express interest in wanting to quit, has tried many times unsuccessfully really making it more than a couple of days Nicotine patch if needed Encouraged repeated attempts at smoking cessation Status: Chronic Plan Check iron panel, HbA1c, lipid panel. Continue other chronic home medications. Full code. Cardiac diet. Lovenox for DVT prophylaxis. Protonix for PUD prophylaxis. Attestations Medical Necessity Statement*: Requires further hospitalization for management of hypoxic respiratory failure secondary to COPD and CHF exacerbation Time Spent in Patient Care: Greater than 35 minutes Coding Level of Care Code Acute Director Of Property Management for [facility] Fwd Diagnoses CHF (congestive heart failure) I50.9 Heart failure chronicity: acute Chronic obstructive pulmonary disease J44.1 COPD type: COPD with acute exacerbation Hypertension I10 Hypertension type: primary hypertension Nicotine dependence, cigarettes, with other nicotine-induced disorders F17.218
[2021-11-23] MEDS: FUROsemide 10 mg/mL SDV 10mL 80 MG IVP (15:37)
[2021-11-23] MEDS: fentaNYL 25 mcg Patch 1 PATCH TRANSDERMA (15:46)
[2021-11-23] MEDS: nicotine 21 mg Patch 1 PATCH TRANSDERMA (15:50)
[2021-11-23] MEDS: naloxone 0.4 mg/ml SDV IVP (16:54)
[2021-11-23] MEDS: EPINEPHrine 0.1 mg/mL SYR 10 mL 1 MG IVP (16:54)
[2021-11-23] MEDS: calcium chloride 10% Syr 10 mL 1 GM IVP (16:59)
[2021-11-23] MEDS: amiodarone 50 mg/mL SDV 3 mL 150 MG IVP (16:59)
[2021-11-23] MEDS: sodium chloride 0.9% 500 ML 999 ML IV (17:00)
--- NOTE | 2021-11-23 17:00 | ECG_ITS ---
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 Measurements Intervals [place] Rate: 143 P: MS: QRS: 81 QRSD: 100 T: 58 QT: 262 QTc: 405 Interpretive Statements Atrial fibrillation WITH RAPID VENTRICULAR RESPONSE NONSPECIFIC ST & T-WAVE ABNORMALITY ABNORMAL RHYTHM ECG INTERPRETATION BASED ON A DEFAULT AGE OF 40 YEARS Compared to ECG 11/22/2021 21:56:31 T-wave abnormality now present Sinus rhythm no longer present Myocardial infarct finding no longer present Electronically Signed On 11-24-2021 23:19:45 CDT by Aftab Valle M.D. [id number]
--- NOTE | 2021-11-23 17:00 | XRR_ITS ---
PROCEDURE INFORMATION: Exam: XR Chest Exam date and time: 11/23/2021 5:08 PM Age: 76 years old Clinical indication: Device placement; Ett placement (vent status); Additional info: Post code/post intubation TECHNIQUE: Imaging protocol: XR of the chest. Views: 1 view. COMPARISON: CR XR chest 1V portable [id number] 11/22/2021 12:30 PM FINDINGS: Lungs: Patchy bilateral mid to lower lung field airspace infiltrates. Mild pulmonary vascular congestion. Pleural spaces: Small bilateral pleural effusions. Heart/Mediastinum: Cardiomegaly. Bones/joints: Unremarkable. XR/XR chest 1V portable [id number] IMPRESSION: 1. Cardiomegaly. 2. Patchy bilateral mid to lower lung field airspace infiltrates. 3. Mild pulmonary vascular congestion. 4. Small bilateral pleural effusions.
[2021-11-23 17:04] LABS: ABG PCO2 57.9 mmHg (35-45); ABG PH Result 7.26 (7.35-7.45); Alveolar-Arterial Oxygen Gradi 69.9 mmHg (5-10); Arterial Blood Gas Hematocrit 46.4 % (37-47); Blood Gas Allen Test Pos; Blood Gas Operator Identificat MONRO; Blood Gas Sample Site Radial, left; Blood Gas Sample Type Arterial; Carboxyhemoglobin 1.1 %THgb (0.4-20.1); HCO3 ABG 26.2 mmol/L (22-26); HGB O2 Sat 95.6 % (95-100); Methemoglobin 0.9 % (0.4-1.5); Oxygen Device OXY MASK; Oxygen Saturation ABG 97.5; Potassium Level - ABG 4.2 mmol/L (3.5-5.0); Total Hemoglobin 15.1 g/dL (12-16)
[2021-11-23 17:14] LABS: Basophils % 0.1 %; Hematocrit 47.8 % (37.0-47.0); Hemoglobin 14.9 g/dL (11.5-15.3); Lymphocytes # 1.6 10^3/uL (0.8-4.8); Lymphocytes % 11.5 %; Mean Corpuscular HGB Conc 31.2 g/dL (30.0-36.0); Mean Corpuscular Hemoglobin 29.4 pg (28.0-34.0); Mean Corpuscular Volume 94.3 fl (81-99); Monocytes # 0.7 10^3/uL (0.2-0.9); Monocytes % 5.1 %; Neutrophils # 11.47 10^3/uL (1.8-7.7); Neutrophils % 82.2 %; Nucleated Red Blood Cells % 0 %; Platelet Count 215 10^3/cmm (130-400); Red Blood Count 5.07 10^6/uL (4.1-5.3); Red Cell Distribution Width 16.2 % (12.1-15.1)
--- NOTE | 2021-11-23 17:21 | PC.NURSE ---
Rosemary Fishman Arrived to the unit at 1653 [address] in progress. Dr. Demarco, Yifan Evans, RN, Hien Schwartz, RT, and Shikha RT in room at patent's bedside. Initial rhythm after arrival was V Fib , pulse check at 1653, patient was pulseless. Shock administered at 120 ju at 1653. Compressions resumed immediately. 1 mg of Epinepherine administered at 1654, 0.4 mg of Narcan administered at 1654. Compressions continued. Pulse check at 1655, patient had pulse to the left carotid and was in V Tach on the Zoll. Lab in room and Oxy mask placed and maxed out at 10 LPM at 1655. 150 mg of Amiodarone and 1 amp of calcium administered at 1659. 500 mL NS bolus initiated at 1700. EKG ordered and completed at 1703. Amiodarone drip ordered verbally by Dr. Demarco and called to pharmacy at 1703. Pulse change to uncontrolled A Fib at 1704. Patient taken to ICU 8 with ICU team, RT, and physician. Labs ordered by Dr. Demarco as instructed, including: CBC with Auto Diff, CMP, CRP, Mag, BNP, Lactic Acid, and INR.
--- NOTE | 2021-11-23 17:22 | PC.NURSE ---
Arrived to ICU 1720
--- NOTE | 2021-11-23 17:27 | PC.NURSE ---
Dr. Miranda rounding with patient. He wants to be called at 2100 this evening to discuss further medication changes. Continue amio gtt per OCT. No fluids or lasix to be given at this time. NPO tonight until morning, continue on bipap.
--- NOTE | 2021-11-23 17:35 | PC.NURSE ---
1650 bedside monitor alerted pt was in vfib, entered room, pt unresponsive and code blue called and initiated. Family at bedside kept informed during code. See additional code blue information. Pt was transferred to ICU and report given at bedside to ICU nurse.
[2021-11-23] MEDS: enoxaparin 40 mg/0.4 mL Syringe SUBCUT (17:36)
[2021-11-23 17:39] LABS: INR 1.08 (0.8-1.2)
[2021-11-23 17:56] LABS: Albumin Level 3.6 g/dL (3.5-5.2); Alkaline Phosphatase 126 IU/L (35-105); Blood Urea Nitrogen 26 mg/dL (8-23); Calcium 11.9 mg/dL (8.5-10.5); Carbon Dioxide 19 mmol/L (22-29); Chloride 97 mmol/L (98-107); Globulin 3.6 g/dL (1.3-4.6); Glucose 125 mg/dL (65-115); Magnesium 1.8 mg/dL (1.7-2.3); Osmolality Calculated 290 mOsm/kg (285-295); Sodium 137 mmol/L (136-145); Total Bilirubin 0.4 mg/dL (0.15-1.2); Total Protein 7.2 g/dL (6.6-8.7)
[2021-11-23 17:58] LABS: Alanine Aminotransferase 54 U/L (0-33); Aspartate Amino Transferase 55 U/L (0-32)
[2021-11-23 18:01] LABS: Lactate (Lactic Acid level) 2.9 mmol/L (0.5-2.2)
[2021-11-23] MEDS: piperacillin-tazobactam 3.375 GM in sodium chloride 0.9% (plus) 50 ML IV (19:15)
[2021-11-23] MEDS: sodium chloride 0.9% 1,000 ML 50 ML IV (19:16)
--- NOTE | 2021-11-23 22:11 | ECG_ITS ---
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 Measurements Intervals [place] Rate: 82 P: 61 NC: 176 QRS: -6 QRSD: 93 T: -61 QT: 399 QTc: 467 Interpretive Statements SINUS RHYTHM NONSPECIFIC ST & T-WAVE ABNORMALITY Compared to ECG 11/23/2021 17:01:04 Atrial flutter no longer present T-wave abnormality still present Electronically Signed On 11-24-2021 23:20:00 CDT by Aftab Valle M.D. [id number]
--- NOTE | 2021-11-23 23:13 | P.EN_ITS ---
Event Note Event Note: Rosemary mann called at around 5 PM. Patient noted to have a Vfib arrest. Patient underwent ACLS protocol CPR for 1 cycle with 1 dose of epinephrine and was defibrilated to have ROSC. Post ROSC patient was found to be in afib with RVR with BP of 140 systolic c/o mild chest heaviness and difficulty to breath. Blood was done and patient was transfered to ICU on bipap ventilation. Labs reviewed as below Abnormal lab results 11/23/21 11/23/21 11/23/21 Range/Units 16:52 17:00 17:00 WBC 14.0 H (4.0-10.0) 10^3/ uL Hct 47.8 H (37.0-47.0) % RDW 16.2 H (12.1-15.1) % MPV 11.0 H (7.4-10.4) fL Neut # (Auto) 11.47 H (1.8-7.7) 10^3/u L Lymph # (Auto) (0.8-4.8) 10^3/u L D-Dimer 2.60 H (0-0.59) ug/mIFE U ABG pH 7.26 L (7.35-7.45) ABG pCO2 57.9 H (35-45) mmHg ABG pO2 110.0 H (80.0-100.0) mmH g ABG HCO3 26.2 H (22-26) mmol/L A-a O2 Gradient 69.9 H (5-10) mmHg Ionized Calcium > 3.9 H* (1.1-1.4) mmol/L Chloride (98-107) mmol/L Carbon Dioxide (22-29) mmol/L Anion Gap (5-19) BUN (8-23) mg/dL Creatinine (0.5-0.9) mg/dL Glucose 128.0 H (65-115) mg/dL Lactate (0.5-2.2) mmol/L Calcium (8.5-10.5) mg/dL Magnesium (1.7-2.3) mg/dL Iron (37-145) ug/dL % Saturation (20-50) % AST (0-32) U/L ALT (0-33) U/L Alkaline Phosphata se (35-105) IU/L C-Reactive Protein (0.0-4.9) mg/L Total Protein (6.6-8.7) g/dL Albumin (3.5-5.2) g/dL HDL Cholesterol (60-100) mg/dL 11/23/21 11/23/21 Range/Units 17:00 17:30 WBC (4.0-10.0) 10^3/ uL Hct (37.0-47.0) % RDW (12.1-15.1) % MPV (7.4-10.4) fL Neut # (Auto) (1.8-7.7) 10^3/u L Lymph # (Auto) (0.8-4.8) 10^3/u L D-Dimer (0-0.59) ug/mIFE U ABG pH (7.35-7.45) ABG pCO2 (35-45) mmHg ABG pO2 (80.0-100.0) mmH g ABG HCO3 (22-26) mmol/L A-a O2 Gradient (5-10) mmHg Ionized Calcium (1.1-1.4) mmol/L Chloride 97 L (98-107) mmol/L Carbon Dioxide 19 L (22-29) mmol/L Anion Gap 25.0 H (5-19) BUN 26 H (8-23) mg/dL Creatinine 1.7 H (0.5-0.9) mg/dL Glucose 125 H (65-115) mg/dL Lactate 2.9 H (0.5-2.2) mmol/L Calcium 11.9 H (8.5-10.5) mg/dL Magnesium (1.7-2.3) mg/dL Iron (37-145) ug/dL % Saturation (20-50) % AST 55 H (0-32) U/L ALT 54 H (0-33) U/L Alkaline Phosphata se 126 H (35-105) IU/L C-Reactive Protein 8.0 H (0.0-4.9) mg/L Total Protein (6.6-8.7) g/dL Albumin (3.5-5.2) g/dL HDL Cholesterol (60-100) mg/dL Plan: Hold lasix, IVF with NS @ 50 cc/hr. C/w bipap ventilation QTc WNL so amio GTT with protocol Troponin cycle. Lovenox 1mg kg bwt Q12h Care plan and GOC discussed in detail with daughter at bedside. For now patient will be full code and wants all measures untill its going to leave patient jinny litated for life or with permanent damage.
[2021-11-23 23:23] LABS: Troponin(5th) Baseline 60 ng/L (0-10)
[2021-11-24] VITALS (125 sets, daily range): BP systolic 102–150; BP diastolic 50–95; PULSE 67–101; RESP 0–34; TEMP 36.4–36.7; O2SAT 91–100
[2021-11-24] MEDS: enoxaparin 40 mg/0.4 mL Syringe SUBCUT (00:05)
--- NOTE | 2021-11-24 00:11 | ECG_ITS ---
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 Measurements Intervals [place] Rate: 87 P: 53 ME: 168 QRS: -3 QRSD: 92 T: -58 QT: 388 QTc: 469 Interpretive Statements SINUS RHYTHM WITH OCCASIONAL SUPRAVENTRICULAR PREMATURE COMPLEXES NONSPECIFIC ST & T-WAVE ABNORMALITY Compared to ECG 11/23/2021 22:33:27 No significant changes Electronically Signed On 11-24-2021 23:30:55 CDT by Aftab Valle M.D. [id number]
[2021-11-24 01:36] LABS: Troponin 5 2HR 73.49 ng/L (0-10)
[2021-11-24 01:41] LABS: Troponin 5 2HR Delta 13.49 ABS# (0-10)
[2021-11-24] MEDS: piperacillin-tazobactam 3.375 GM in sodium chloride 0.9% (plus) 50 ML IV ×2 (02:38→11:37)
--- NOTE | 2021-11-24 04:11 | ECG_ITS ---
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 Measurements Intervals [place] Rate: 88 P: 49 [place]: 163 QRS: -14 QRSD: 94 T: -76 QT: 397 QTc: 482 Interpretive Statements SINUS RHYTHM WITH OCCASIONAL VENTRICULAR PREMATURE COMPLEXES WITH OCCASIONAL SUPRAVENTRICULAR PREMATURE COMPLEXES MODERATE T-WAVE ABNORMALITY, CONSIDER INFERIOR ISCHEMIA [-0.1+ mV T-WAVE IN II/aVF] Compared to ECG 11/24/2021 00:38:02 Ventricular premature complex(es) now present Possible ischemia now present T-wave abnormality still present Electronically Signed On 11-24-2021 23:31:07 CDT by Aftab Valle M.D. [id number]
[2021-11-24 05:56] LABS: Troponin 5 6HR 69.55 ng/L (0-10)
[2021-11-24 05:57] LABS: Alanine Aminotransferase 56 U/L (0-33); Albumin Level 3.7 g/dL (3.5-5.2); Alkaline Phosphatase 110 IU/L (35-105); Anion Gap 15.3 (5-19); Aspartate Amino Transferase 43 U/L (0-32); Blood Urea Nitrogen 26 mg/dL (8-23); Calcium 9.3 mg/dL (8.5-10.5); Carbon Dioxide 29 mmol/L (22-29); Chloride 99 mmol/L (98-107); Globulin 2.3 g/dL (1.3-4.6); Glucose 135 mg/dL (65-115); Osmolality Calculated 295 mOsm/kg (285-295); Potassium 4.3 mmol/L (3.5-5.1); Sodium 139 mmol/L (136-145); Total Bilirubin 0.7 mg/dL (0.15-1.2)
[2021-11-24 05:59] LABS: Basophils % 0.1 %; Eosinophils % 0.1 %; Hematocrit 42.7 % (37.0-47.0); Hemoglobin 13.5 g/dL (11.5-15.3); Lymphocytes # 0.3 10^3/uL (0.8-4.8); Mean Corpuscular HGB Conc 31.6 g/dL (30.0-36.0); Mean Corpuscular Hemoglobin 29.5 pg (28.0-34.0); Mean Corpuscular Volume 93.2 fl (81-99); Mean Platelet Volume 11.3 fL (7.4-10.4); Monocytes # 0.5 10^3/uL (0.2-0.9); Monocytes % 3.1 %; Neutrophils # 14.25 10^3/uL (1.8-7.7); Neutrophils % 94.1 %; Nucleated Red Blood Cells % 0 %; Platelet Count 196 10^3/cmm (130-400); Red Blood Count 4.58 10^6/uL (4.1-5.3); White Blood Count 15.1 10^3/uL (4.0-10.0)
[2021-11-24 06:07] LABS: Procalcitonin 0.19 ng/mL (0-0.5)
[2021-11-24 06:09] LABS: Troponin 5 6HR Delta 9.55 ng/L (0-12)
[2021-11-24 06:23] LABS: Estmated Average Glucose 114; Hemoglobin A1C 5.6 % (4.0-6.0)
[2021-11-24] MEDS: ipratropium-albuterol 3 mL Neb INHALATION ×3 (07:33→20:12)
[2021-11-24] MEDS: budesonide 0.5 mg/2 mL Neb INHALATION ×2 (07:33→20:13)
[2021-11-24] MEDS: docusate sodium 100 mg Capsule PO ×2 (08:25→17:46)
[2021-11-24] MEDS: aspirin 81 mg EC Tablet PO (08:25)
[2021-11-24] MEDS: pantoprazole DR 40 mg Tablet PO (08:25)
[2021-11-24] MEDS: ferrous gluconate 324 mg Tablet PO ×2 (08:25→17:46)
[2021-11-24] MEDS: enoxaparin 100 mg/mL Syringe 90 MG SUBCUT (08:26)
[2021-11-24] MEDS: potassium chloride ER 20 mEq Tablet PO (08:26)
--- NOTE | 2021-11-24 10:03 | PC.CHAP ---
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 double needle operator visit [] Patient/Family/Request visit [] Outpatient visit [] Follow-up visit [] Physician referral [] Code/Alert [x] Routine visit [] Staff referral [] Actively dying [] Patient sleeping [x] Family support [] [] Out of room [] Palliative care [] [] Receiving care in room [] Pre-surgical visit [] Trauma [] Long length of stay [x] ICU visit [] Other: Relational/Emotional Strength [] Patient feels connected with others/family/visitors/staff [] Distress [] Loneliness/isolation [] Abandonment Spirituality of Patient [] Person of Janet [] Attends Jehov[employer] Witness of their Janet [] Believes in Prayer [] Reads Bible or Congregation materials [] There are Spiritual issues to be addressed Transportation Inspector Interventions [x] Prayer [x] Active listening [x] Non-anxious presence [x] Spiritual/emotional support [] Crisis/trauma care [] Spiritual counseling [] Bereavement support [] Provided bereavement packet [] Provided Bible/devotional materials [] Provided toy/stuffed animal, coloring book to patient or family member [] Provided Communion [] Anointing/[place] [] Salvation [x] Completed spiritual assessment [] Other: Impact on Illness or Injury [] Angry [] Fearful [] Anxious [] Often cries [] Exhaustion [] Unable to work [] Unable to attend zoroastrianism [] Unable to walk/stand [] Unable to read [] Unable to drive [] Unable to eat/drink [] Unable to sleep [] Unable to be with family [] Patient intubated [] Other: Summary looking forward to going home with family... Time spent with patient 5 min
[2021-11-24 11:51] LABS: Magnesium 1.7 mg/dL (1.7-2.3); Phosphorus 4.6 mg/dL (2.5-4.5)
[2021-11-24] MEDS: acetaminophen 325 mg Tablet 650 MG PO (12:21)
--- NOTE | 2021-11-24 12:25 | P.PN_ITS ---
Subjective Subjective: No acuteness overnight. Patient on examination today on 2 L oxygen supplementation saturating 97%. Has remained hemodynamically stable. Currently on amiodarone drip of 0.5. Complaining of soreness in chest after chest compressions. Denies any nausea, vomiting, headache. States breathing is better. Able to have complete conversation. Asking for food as hungry. Asking if she can get out of bed to chair today. Documented urine output of 3 L yesterday with 600 overnight. Vitals/I&O/Wt Last Vital Signs Temp 98.1 F 11/24/21 08:15 Pulse 98 11/24/21 11:25 Resp 18 11/24/21 11:17 BP 115/66 11/24/21 08:15 Pulse Ox 97 11/24/21 11:17 11/23/21 11/24/21 11/24/21 22:59 06:59 14:59 Intake Total 500 / 980 238.12 / 1218.12 Output Total 225 / 2175 950 / 3125 Balance 275 / -1195 -711.88 / -1906.88 Weight last 48 hrs Weight 87.09 kg Weight 86.806 kg Weight 86.908 kg Physical Exam Narrative: Constitutional: Awake and alert, acutely and chronically ill-appearing, HEENT: Normocephalic, atraumatic, extraocular movements are intact, pupils are equally round and reactive to light, nasopharynx is clear, oropharynx with moist mucous membranes, upper and lower dentures noted Neck: Supple, JVD noted up to the earlobe with prominent venous waves Respiratory: Inspiratory and expiratory wheezes noted bilaterally, mild supraclavicular retractions and intercostal retractions, no abdominal breathing, able to talk in complete sentences without difficulty in breathing, no pursed lip breathing appreciated, no nasal flaring, sitting up in bed. Increased dyspnea with supine positioning. Cardiovascular: Tachycardic, distant heart sounds obscured by pulmonary sounds, regular, no discernible murmurs or rubs 1+ radial pulses, dorsalis pedis pulses are weaker than radial pulses but palpable, brisk capillary refill is noted Abdomen: Soft, quite rounded in upright positioning in ER bed though not as discernible when laid more supine, bowel sounds, nontender : Normal external genitalia, minimal erythema in intertriginous areas more so on the right than the left, Rubio catheter noted with approximately 1700 mL of urine, clear and faintly yellow Extremities: 4+ pitting edema, no weeping noted, general tenderness in areas of edema, right lower extremity is slightly larger than left lower extremity at the mid ward but less than a centimeter difference, no appreciable focal calf tenderness or palpable cords, both feet are cool to touch but not cyanotic, clubbing noted Skin: Chronic stasis changes with some areas of desquamating skin appreciated, no areas of significant warmth, scattered erythema but not in a discernible pattern, no large areas of bruising appreciated Neuro: Speech clear, visual murillo appear grossly intact, face symmetric, speech is clear, handgrip is equal, sensation is intact and equal to light touch at both feet Psych: Seems down, affect consistent with current clinical condition Urinary Catheter Management: Rubio: Cath Placed During This Visit: yes Reason for Continuing Indwelling Catheter: Accurate Measurement of Urinary Output in Critically Ill Patients Urinary Catheter Date of Insertion: 11/22/21 Urinary Catheter Time of Insertion: 14:33 Data : 11/24/21 05:05 11/24/21 05:05 Micro: Microbiology 11/22/21 13:45 MRSA Culture - Final Nose 11/22/21 17:00 Bacterial Antigens - Final Urine Kidney 11/22/21 17:00 Legionella Urinary Antigen - Final Unknown Source A&P Assessment and plan (1) Cardiac arrest with successful resuscitation: Heat pad, diclofenac gel for discomfort. Status: Acute (2) Cardiac arrest with ventricular fibrillation: Continue with amiodarone drip for now and stop as per protocol Start on amiodarone 200 mg twice daily. Patient will most likely require ischemic work-up to rule out CAD given significant past medical history, significant reduced EF and possible placement of ICD. Will consult cardiology. Keep potassium around 4, magnesium over 2. Will monitor QTC. Troponin slightly elevated most likely post CPR. Given significant family CAD history, event of ventricular fibrillation with cardiac arrest for now we will start on full dose anticoagulation with Lovenox 1 mg/kg body weight every 12 hourly. Continue with aspirin 81 mg daily. Lipid panel appreciated. Atorvastatin 40 mg oral daily. A1c 5.6. Status: Acute (3) Chronic obstructive pulmonary disease: DuoNebs every 6 hour, budesonide twice daily. Wean off Solu-Medrol to 40 mg IV every 12 hourly. Post CPR there is a concern for possible aspiration pneumonia versus pneumonitis. Continue with Zosyn. MRSA swab negative, sputum culture awaited. Incentive spirometry. Status: Chronic Qualifiers: COPD type: COPD with acute exacerbation Qualified Code(s): J44.1 - Chronic obstructive pulmonary disease with (acute) exacerbation (4) Acute kidney injury: Most likely secondary to aggressive diuresis and slightly vascular depleted, Lasix na?ve patient. Medical reconciliation done for nephrotoxic drugs. Hold off on LOBO inhibitor for now. Hold off on diuresis for now. Careful gentle hydration with normal saline 50 cc/h for 1 bag. We will restart diuresis at a lower rate from tomorrow. Monitor BMP daily. Urinalysis, urine lites, urine creatinine. Renal ultrasound Status: Acute (5) Aspiration pneumonitis: Status: Acute (6) CHF (congestive heart failure): Echocardiogram shows an EF of 30% with global LV hypokinesia and dilatation, normal RV size, mild to trace mitral regurgitation, moderate aortic valve regurgitation, trace TR. Congestive heart failure systolic type. Strict input for charting, daily weights. Hold off on any further diuresis for now as patient is clinically slightly dehydrated with acute kidney injury. Gentle IV hydration with normal saline at 50 cc/h for now. Will restart oral hydration at a slower rate once patient is more stable. Will reinitiate heart failure medications including LOBO inhibitor, spironolactone and beta-virgilio gradually. Status: Acute Qualifiers: Heart failure chronicity: acute (7) Hypertension: Goal blood pressure less than 140/90 mmHg. Will consider diuresis for now. We will plan for heart failure medications to be introduced within next 48 hours depending on symptoms and hemodynamics. Status: Chronic Qualifiers: Hypertension type: primary hypertension Qualified Code(s): I10 - Essential (primary) hypertension (8) Nicotine dependence, cigarettes, with other nicotine-induced disorders: ~60 pack year history, does express interest in wanting to quit, has tried many times unsuccessfully really making it more than a couple of days Nicotine patch if needed Encouraged repeated attempts at smoking cessation Status: Chronic Plan Full code. Cardiac diet. Lovenox will suffice for DVTprophylaxis. Protonix for PUD prophylaxis. Patient's care discussed in detail with patient's daughter, patient herself at bedside. All the questions were answered. Attestations Medical Necessity Statement*: Requested hospitalization for management of acute decompensated systolic congestive heart failure, ventricular fibrillation post cardiac arrest and successful resuscitation while ischemic cause is ruled out Critical Care Time: The high probability of a clinically significant, sudden or life threatening deterioration of the patient's [cardiac, renal system(s) required my full and direct attention, intervention and personal management. The critical care time is as shown. This time is in addition to time spent performing any reported procedures but includes the following: [x] Data and vital sign review and interpretation [x] Patient assessment, examination and intervention [x] Documentation [x] Medication orders and management Critical Care Time (min): 90 Coding Level of Care Code Acute Superintendent Drilling for [facility] Fwd Diagnoses CHF (congestive heart failure) I50.9 Heart failure chronicity: acute Chronic obstructive pulmonary disease J44.1 COPD type: COPD with acute exacerbation Hypertension I10 Hypertension type: primary hypertension Nicotine dependence, cigarettes, with other nicotine-induced disorders F17.218 Cardiac arrest with ventricular fibrillation I46.9; I49.01 Cardiac arrest with successful resuscitation I46.9 Acute kidney injury N17.9 Aspiration pneumonitis J69.0
--- NOTE | 2021-11-24 12:37 | USR_ITS ---
PROCEDURE INFORMATION: Exam: US Retroperitoneal; Complete; Kidneys and Bladder Exam date and time: 11/24/2021 6:55 PM Age: 76 years old Clinical indication: Other: Blood values indicate emery; Additional info: Emery, PT in labor mediator for stent placement 1540 al TECHNIQUE: Imaging protocol: Real-time ultrasound of the retroperitoneum with image documentation. Complete exam focused on the kidneys and bladder. COMPARISON: CT Chest/Abdomen/Pelvis w IV* 07/11/2019 1:23 PM FINDINGS: Right kidney: Benign cyst lower pole 6.3 cm x 6.7 cm x 4.9 cm. No stones. No hydronephrosis. Measures 7.9 cm x 7.8 cm x 12 cm Left kidney: Normal. No stones. No hydronephrosis. 4 cm x 8.2 cm x 10.2 cm Urinary bladder: Not well visualized. US/US renal BI* [id number] IMPRESSION: 1. Benign cyst lower pole right kidney. 2. Negative exam of the left kidney 3. Urinary bladder is not visible
--- NOTE | 2021-11-24 12:49 | PM.CONSULT ---
Providers/Reason For Consult Consulting Physician/Specialty*: Jona Crawford MD/ Cardiology Reason for Consult*: Ventricular fibrillation Requesting Physician: Dr Demarco Attending Physician: Tashi Demarco MD Primary Care Provider: Kelley Jimenez MD History of Present Illness History of Present Illness Surekha Villalobos is a 76 year old female with past medical history of COPD, hypertension has presented to the hospital with worsening shortness of breath. Patient started noticing chest shortness of breath about 6 months ago. Also has occasional chest discomfort. In the hospital and she underwent echocardiogram that showed new onset congestive heart failure with EF of 30%. Yesterday she had V. fib arrest requiring CPR and was defibrillated with shock x1. According to patient she had COVID-vaccine right before she started noticing shortness of breath. She has significant family history of coronary artery disease however no personal history of CAD. Patient's EKG shows sinus rhythm with PACs. No significant ischemic changes seen. Post cardiac arrest Baseline troponin was 60 and that trended up to 69. Just has chest soreness now without any significant chest pain. Review of Systems Narrative: CONSTITUTIONAL: No fever chills weight loss or gain or night sweats. [] HEENT: Normocephalic, atraumatic.[] RESPIRATORY: No cough, sputum, hemoptysis or wheezing. Has shortness of breath CARDIOVASCULAR: Has shortness of breath. Chest soreness. GI: no nausea vomiting diarrhea. [] [employer]: No numbness, tingling, weakness or loss of function in any part of the body. [] MUSCULOSKELETAL: No knee or joint pain or rashes. [] Medications/Allergies Home Medications Medication Instructions Recorded Confirmed Last Taken Type calcium carbonate 600 mg calcium 1,200 mg PO BEDTIME 11/03/21 11/22/21 Unknown History (1,500 mg) tablet (Calcium) cholecalciferol (vitamin D3) 50 50 mcg PO DAILY 11/03/21 11/22/21 Unknown History mcg (2,000 unit) capsule cinnamon bark 500 mg capsule 500 mg PO .EIGHT TIMES A DAY 11/03/21 11/22/21 Unknown History coenzyme Q10 100 mg capsule (Co 100 mg PO QAM 11/03/21 11/22/21 Unknown History Q-10) albuterol sulfate 90 mcg/actuation 1 inh INHALATION QID PRN #8.5 g 11/14/21 11/22/21 Unknown Rx aerosol inhaler (ProAir HFA) budesonide-formoterol HFA 160 2 puff INHALATION BID #10.2 g 11/14/21 11/22/21 Unknown Rx mcg-4.5 mcg/actuation aerosol inhaler (Symbicort) tiotropium bromide 1.25 2 puff INHALATION DAILY #4 g 11/14/21 11/22/21 Unknown Rx mcg/actuation mist for inhalation (Spiriva Respimat) Vitamin B-12 1 tab PO DAILY 11/22/21 11/22/21 Unknown History aspirin 325 mg tablet 325 mg PO DAILY 11/22/21 11/22/21 Unknown History ciaran (Zingiber officinalis) 550 550 mg PO DAILY 11/22/21 11/22/21 Unknown History mg capsule ginkgo biloba 1 tab PO DAILY 11/22/21 11/22/21 Unknown History green tea leaf extract (Green Tea) 1 cap PO DAILY 11/22/21 11/22/21 Unknown History multivitamin 1 tab PO DAILY 11/22/21 11/22/21 Unknown History niacin 1 tab PO QAM 11/22/21 11/22/21 Unknown History vitamin B complex 1 tab PO DAILY 11/22/21 11/22/21 Unknown History Allergies Allergy/AdvReac Type Severity Reaction Status Date / Time acetaminophen [From [place]] Allergy ALGY-Difficulty Verified 11/22/21 14:02 Breathing codeine Allergy ALGY-Difficulty Verified 11/22/21 14:02 Breathing hydrocodone [From [place]] Allergy ALGY-Difficulty Verified 11/22/21 14:02 Breathing Current Medications Generic Name Dose Route Start Last Admin Trade Name Freq PRN Reason Stop Dose Admin Acetaminophen 650 mg 11/22/21 17:04 11/24/21 12:21 Acetaminophen 325 Mg Tablet PO 650 mg Q6H PRN Administration Mild/Mod Pain Or Temp >/= 101 Albuterol/Ipratropium 3 ml 11/22/21 20:00 11/24/21 11:17 Ipratropium-Albuterol 3 Ml Neb INHALATION 3 ml QID.RESPIRATORY JOHN Administration Aspirin 81 mg 11/23/21 09:00 11/24/21 08:25 Aspirin 81 Mg Ec Tablet PO 81 mg DAILY JOHN Administration Budesonide 0.5 mg 11/22/21 20:00 11/24/21 07:33 Budesonide 0.5 Mg/2 Ml Neb INHALATION 0.5 mg BID.RESPIRATORY JOHN Administration Docusate Sodium 100 mg 11/22/21 18:00 11/24/21 08:25 Docusate Sodium 100 Mg Capsule PO 100 mg BID JOHN Administration Enoxaparin Sodium 90 mg 11/24/21 09:00 11/24/21 08:26 Enoxaparin 100 Mg/Ml Syringe 1 mg/kg (90 mg) 90 mg SUBCUT Administration Q12H JOHN Fentanyl 1 patch 11/23/21 15:30 11/23/21 15:46 Fentanyl 25 Mcg Patch TRANSDERMA 1 patch Q72H JOHN Administration Ferrous Gluconate 324 mg 11/23/21 18:00 11/24/21 08:25 Ferrous Gluconate 324 Mg Tablet PO 324 mg BIDWM JOHN Administration Furosemide 80 mg 11/23/21 15:30 11/23/21 15:37 Furosemide 10 Mg/Ml Sdv 10ml IVP 80 mg Q12H JOHN Administration Amiodarone HCl 900 mg/ 518 mls @ 0 mls/hr 11/23/21 17:15 11/23/21 23:00 Dextrose/ IV Miscellaneous IV Infused Supplies .Q0M JOHN Titration Protocol Per Protocol Sodium Chloride 1,000 mls @ 50 mls/hr 11/23/21 18:59 11/23/21 19:16 Sodium Chloride 0.9% IV 11/24/21 14:58 50 mls/hr .Q20H ONE Administration Piperacillin Sod/Tazobactam 50 mls @ 12.5 mls/hr 11/23/21 19:30 11/24/21 11:37 Sod 3.375 gm/ Sodium Chloride IV 12.5 mls/hr Q8H JOHN Administration Nicotine 1 patch 11/22/21 17:09 11/23/21 15:50 Nicotine 21 Mg Patch TRANSDERMA 1 patch DAILY PRN Administration nicotine withdrawl Pantoprazole Sodium 40 mg 11/23/21 09:00 11/24/21 08:[address] 40 Mg Tablet PO 40 mg DAILY JOHN Administration PFSH Acute PFSH: Medical History Age related osteoporosis Cardiac arrest with successful resuscitation Cardiac arrest with ventricular fibrillation Chronic obstructive pulmonary disease History of rib fracture left 6, 7, 8 Hypertension Macular degeneration Nicotine dependence, cigarettes, with other nicotine-induced disorders Osteoarthritis Surgical History H/O total knee replacement right History of total hip replacement right History of tubal ligation Family History Mother CAD (coronary artery disease) in 70s from heart attack Father Cancer lung Social History Smoking and tobacco status: current every day smoker cigarettes [ Other cigarette details: Smoked since her teenage years (about 58 years)] Alcohol intake: never Substance/Drug Use: never Household members: none Number of children: 2 Vitals/I&O/Wt Last Vital Signs Temp 98.1 F 11/24/21 08:15 Pulse 97 11/24/21 12:15 Resp 24 H 11/24/21 12:15 BP 105/69 11/24/21 12:15 Pulse Ox 96 11/24/21 12:15 11/23/21 11/24/21 11/24/21 22:59 06:59 14:59 Intake Total 500 / 980 238.12 / 1218.12 240 / 240 Output Total 225 / 2175 950 / 3125 Balance 275 / -1195 -711.88 / -1906.88 240 / 240 Weight last 48 hrs Weight 192 lb Weight 191 lb 6 oz Weight 191 lb 9.6 oz Physical Exam Narrative: CONSTITUTIONAL: No fever chills weight loss or gain or night sweats. [] HEENT: Normocephalic, atraumatic.[] RESPIRATORY: No cough, sputum, hemoptysis or wheezing.[] CARDIOVASCULAR: No shortness of breath, chest pain, PND, orthopnea, lower extremity edema, presyncope or syncope. [] GI: no nausea vomiting diarrhea. [] [employer]: No numbness, tingling, weakness or loss of function in any part of the body. [] MUSCULOSKELETAL: No knee or joint pain or rashes. [] Urinary Catheter Management: Rubio: Cath Placed During This Visit: yes Reason for Continuing Indwelling Catheter: Accurate Measurement of Urinary Output in Critically Ill Patients Urinary Catheter Date of Insertion: 11/22/21 Urinary Catheter Time of Insertion: 14:33 Data : 11/24/21 05:05 11/24/21 05:05 Micro: Microbiology 11/22/21 13:45 MRSA Culture - Final Nose 11/22/21 17:00 Bacterial Antigens - Final Urine Kidney 11/22/21 17:00 Legionella Urinary Antigen - Final Unknown Source A&P Assessment and plan (1) Aspiration pneumonitis: Status: Acute (2) Acute kidney injury: Status: Acute (3) Cardiac arrest with ventricular fibrillation: Status: Acute (4) Chronic obstructive pulmonary disease: Status: Chronic Qualifiers: COPD type: COPD with acute exacerbation Qualified Code(s): J44.1 - Chronic obstructive pulmonary disease with (acute) exacerbation (5) CHF (congestive heart failure): Status: Acute Qualifiers: Heart failure chronicity: acute (6) Hypertension: Status: Chronic Qualifiers: Hypertension type: primary hypertension Qualified Code(s): I10 - Essential (primary) hypertension Plan Patient had ventricular fibrillation requiring defibrillation with shock x1. Today she had nonsustained VT. She has new onset congestive heart failure. No known coronary artery disease history. We will proceed with coronary angiogram with possible percutaneous coronary intervention. Risks and benefits of the procedure have been discussed with the patient who understands these and wants to proceed with it. Initially plan was to proceed with coronary angiogram tomorrow as creatinine worsened today, however, she had more episodes of non-sustained VT and after discussion with family decision made to proceed with it today. They understand the risk of contrast induced nephropathy Continue aspirin ECHO shows EF of 30%. If no CAD is found, patient will require ICD placement. Thank you for involving us with care of this patient. We will continue to follow Consult Attestations Medical Necessity Statement: Care expected to cross 2 midnights. 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
--- NOTE | 2021-11-24 13:31 | XACV_ITS ---
Exam Room: [facility] Ht: 163 cm Wt: 87 kg BSA: 2.02 m2 Gender: Female : 1945 Any Known Allergies: Other Exam Priority: Routine Indication(s): - Cardiac arrest Procedure(s): Procedure Description: Diagnostic procedure Procedure Description: PCI procedure Procedure Description: Drug Eluting Coronary Stent Procedure Description: Miscellaneous Procedure Description: ACT Procedure Description: Coronary Angiography Diagnostic Cath Status: Urgent Diagnostic Findings * Left Main has no significant disease. * Circumflex has mild luminal irregularities. * INDICATION: Patient had cardiac arrest with ventricular fibrillation in the hospital yesterday with successful defibrillation with shock x 1. Also found to have new onset congestive heart failure. * Proximal Left Anterior Descending: minimal 30% stenosis, PAL: 3 flow. * Mid Right Coronary Artery: mild 40% stenosis, PAL: 3 flow. * Distal Right Coronary Artery: obstructive 70% stenosis, PAL: 3 flow. * Coronary angiography shows right dominance. PCI Status: Urgent PCI Indication: Other Interventional Findings * Procedure detail: We engaged RCA initially with JR4 guide catheter. IV heparin was administered to maintain ACT above 250 yes. 0.014 run-through guidewire was used to cross the distal RCA lesion. We predilated the lesion with 3.0 x 12 mm noncompliant balloon. Stent could not be advanced secondary to lack of guide support. We switched guide to AL 0.75. Then we placed 3.5 x 18 mm resolute Chela drug-eluting stent. We then postdilated the proximal part of stent with 4.0 x 8 mm NC balloon. At this time final angiogram was performed that showed excellent stent expansion, no residual stenosis and PAL-3 flow. Guidewire and guide catheter were removed. Patient left the Machine Package Sealer in stable condition.. * INDICATION: Cardiac arrest/ventricular fibrillation. * Distal Right Coronary Artery: 70% stenosis treated with a AB TREK 3.00X12 RX BALLOON, EDISON Puckett CHELA 3.5X18 RATNA, and EDISON TAPIA EUPHORA RX [id number] BALLOON. 0% residual stenosis, PAL: 3 flow. Conclusions 1. Severe distal RCA stenosis s/p successful revascularization with RATNA X 1. 2. Distal Right Coronary Artery was treated with a Balloon, Drug Eluting Stent, and Balloon. Recommendations * Transfer back to ICU. * Aspirin and Plavix for atleast 1 year. * High intensity statin therapy. * Patient will need consideration for ICD placement as her LV dysfunction is secondary to non-ischemic cardiomyopathy. Interventional RX Recommendation: PCI w/o planned CABG Diagnostic RX Recommendation: PCI w/o planned CABG Anticoagulation: Heparin Pressures Phase:Rest AO : -44 / -45 ( -46 ) @ 3:34:00 PM -44 / -46 ( -46 ) @ 3:36:00 PM 168 / 88 ( 111 ) @ 4:07:00 PM 88 / 37 ( 72 ) @ 4:31:00 PM 74 / 61 ( 68 ) @ 4:40:00 PM 35 / -1 ( 15 ) @ 4:42:00 PM / ( 0 ) @ 4:47:00 PM Clinical Evaluation EBL: 5mL-10mL Procedural Details Procedure Consent Obtained. Admit Source: In Patient. Pre-Procedure Time Out. Identified patient by full name and date of as verbalized by the patient/guarantor. Does the consent match the physician's order: Yes. Accurate & Complete Informed Consent: Yes. Inpatient/Outpatient History & Physical on Chart: Yes. If H&P is completed, is and addenduem needed: No; If yes, is the addendum complete: N/A. Visualize and Verify Site with Patient/Guarantor: N/A. Relevant Radiology Images available: N/A. The risks, benefits, and alternatives of sedation and/or procedure were discussed by physician. The patient agrees to continue. Procedure started. [facility] Clinical Fraility Score: 4: Vulnerable. Machine Package Sealer Indications: Other VFIB ARREST. Chest Pain Symptom Assessment: Atypical Angina. Cardiovascular Instability: Yes, if yes, Ventricular Arrhythmias. Correct patient, site and procedure confirmed by cath team. AP pads placed. Current diagnosis: VFIB ARREST. PERRLA. Strong, equal hand installer helper bilaterally. Lungs clear x 5 lobes. IV Site on Arrival: 20 gauge in the right anticubital. IV drips prior to arrival: Amiodarone 0.5 mg/min to right AC- no s/s of infiltration noted. IV Site on Arrival: 20 gauge in the left hand. IV Fluids: 0.9% NaCl at KVO. 900 mL infused prior to metallurgical lab technician. Pre Procedural Pulses: bilateral radial was 2+. Pre Procedural Pulses: bilateral posterior tibial was Doppled. Pre Procedural Pulses: bilateral dorsalis pedis was Doppled. Oxygen started at 3liters/min via nasal canula. right groin was prepped with chloroprep then draped in the usual sterile fashion. right radial was prepped with chloroprep then draped in the usual sterile fashion. Physician notified. Baseline sample Acquired. HR: 93 BPM. Physician arrived. Equipment: 5F - Radial. Cardiac Cath Pack. ACIST Manifold Kit Model BT 2000. Heparinized Saline (2 units/mL), 1000 mL bag. Equipment: 6F - Radial. Physician scrubbed in. Immediate Pre-Procedure Time Out. Correct Patient: Yes; Correct Procedure: Yes; Correct Site: Yes; Correct Patient Position: Yes; Correct Supplies: Yes; Dried Flammable Prep: Yes; Blood Products Available: N/A;. Lidocaine 1% infiltrated to the right radial. Arterial access obtained. A TR 5FR Radial TIG 4.0 110cm was advanced over the wire and used for right and left coronary angiography. Unable to advance the catheter. Removed over the wire. Hand injection through the sheath by . Glidewire inserted. TIG catheter advanced over glidewire to the subclavian right. Catheter seated in LCS. Multiple views taken of left coronary artery. Heparin held at this point per MD. Patient received theraputic lovenox dose 90 mg this morning at 0826. Catheter redirected to the RCA. Multiple views taken of right coronary artery. MD review of films. Starting Intervention. Catheter removed over the glidewire. Inventory is CRD 6FR JR 4 GUIDE 100cm. Inventory is TR 180cm Runthrough NS extra floppy 0.014 wire. 6 japanese JR 4 guide catheter was inserted over the wire. Glidewire out. Guide seated in the RCA. Runthrough guidewire was advanced through the guide catheter to lesion in the distal RCA. Unable to advance wire or seat guide properly. Removed wire. Guide removed over the standard wire. Radial approach aborted. A TR Band was successful obtaining hemostatsis at the Right Radial artery insertion site. TR band placed. Hemostasis obtained. Lidocaine 1% infiltrated to the right groin. Venous access obtained with a micropuncture set. 6 japanese JR 4 guide catheter was inserted over the GLIDE wire. Guide seated in the RCA. Runthrough guidewire was advanced through the guide catheter to lesion in the distal RCA. Guide popped out of the rca with wire advancement. Runthrough removed over the wire. Guide catheter out over the standard wire. Inventory is CRD 6FR 3 DRC GUIDE. 6 japanese 3DRC guide catheter was inserted over the wire. Guide seated in the RCA. Runthrough guidewire was advanced through the guide catheter to lesion in the distal RCA. Guidewire advanced across lesion. Angiography performed. Inflation number : 1 A AB TREK 3.00X12 RX BALLOON was prepped and advanced across the Dist RCA , then inflated to 6 CHARLEEN for 0:36 seconds. Inflation number: 2 The AB TREK 3.00X12 RX BALLOON was reinflated across the Dist RCA, to 6 CHARLEEN for 0:12 seconds. Inflation number: 3 The AB TREK 3.00X12 RX BALLOON was reinflated across the Dist RCA, to 6 CHARLEEN for 0:18 seconds. Balloon out over the wire. Guideliner inserted. Stent inserted, unable to cross, removed intact over the runthrough wire. Guideliner out. Wire out. Guide catheter removed over the standard wire. Inventory is CRD 6FR AL .75 GUIDE. 6 japanese AL 0.75 guide catheter was inserted over the wire. Guide seated in the RCA. Runthrough guidewire was advanced through the guide catheter to lesion in the distal RCA. Anesthesia here to assist with sedation of the patient. Guideliner inserted. Inflation Number : 4 A EDISON Puckett CHELA 3.5X18 RATNA -Lot Number# [id number] was prepped and advanced across the Dist RCA. The stent was deployed at 12 CHARLEEN for 0:30 seconds. EXP 08/16/2024. Stent Balloon out over the wire. Results checked. Inflation number : 5 Jose Maria TAPIA EUPHORA RX [id number] BALLOON was prepped and advanced across the Dist RCA , then inflated to 12 CHARLEEN for 0:21 seconds. Balloon out over the wire. Results checked. Guideliner removed over the wire. Results checked. Wire out. Results checked. Guide catheter out over the wire. Physician review of films. A Right femoral angiogram was performed to determine safe placement of closure device. Physician scrubbed out. A Suture was successful obtaining hemostatsis at the Right Femoral artery insertion site. Sheath(s) sutured into position with 2-0 silk and sterile 4x4's and Op-site applied over the site. No oozing or signs and symptoms of hematoma noted. Arterial sheath flushed and connected to tranducer and pressure bag with heparinized saline. Post op diagnosis: Severe distal RCA stenosis. ACT drawn. Results 239 seconds. Therapeutic limits - pre-heparin administration 90-150 seconds and monitoring heparin during a vascular procedure >250 seconds. Post Procedure: Pulses reassessed and unchanged. PERRLA. Strong, equal hand installer helper bilaterally. No VTE prophylaxis required. Medication's Wasted: Nitro = 49.6 mg. Medication's Wasted: Heparin = 3000 units. Total IV fluids: 99 mL. Fluoro: 30:09. Contrast type used: Visipaque 320 mgI/mL, 500 mL bottle. [id number]. Complications: NONE. Estimated blood loss: 5mL-10mL. Responsiveness - Normal response to verbal stimuli; alert and oriented, PERRLA. Airway - Unaffected, no intervention required; spontaneous ventilation. Circulation: W/N/L, pulses unchanged. Nausea/Vomiting: No. Patient transferred by bed to ICU. Procedure completed. Vital chart was stopped. Vital chart was stopped. Procedure started. Access Site Site: Right Radial artery Sheath Size: 6 Fr Hemostasis Method: TR Band Hemostasis Success: Successful Site: Right Femoral artery Sheath Size: 6 Fr Hemostasis Method: Suture Hemostasis Success: Successful Procedure Medications Start: 2:08 PM Stop: 2:08 PM Medication: Versed 1 mg and Fentanyl 25 mcg Amount: 1 Route: I.V. Start: 2:08 PM Stop: 2:08 PM Medication: Benadryl Amount: 25 mg Route: I.V. Start: 2:21 PM Stop: 2:21 PM Medication: Nitrogylcerin Amount: 200 mcg Route: I.A. Start: 2:22 PM Stop: 2:22 PM Medication: Versed Amount: 0.5 mg Route: I.V. Start: 2:36 PM Stop: 2:36 PM Medication: Nitrogylcerin Amount: 200 mcg Route: I.A. Start: 2:36 PM Stop: 2:36 PM Medication: Versed Amount: 0.5 mg Route: I.V. Start: 2:36 PM Stop: 2:36 PM Medication: Fentanyl Amount: 25 mcg Route: I.V. Start: 2:42 PM Stop: 2:42 PM Medication: Fentanyl Amount: 25 mcg Route: I.V. Start: 2:58 PM Stop: 2:58 PM Medication: Versed Amount: 1 mg Route: I.V. Start: 3:15 PM Stop: 3:15 PM Medication: Heparin Amount: 6000 units Route: I.V. Start: 3:20 PM Stop: 3:20 PM Medication: Fentanyl Amount: 25 mcg Route: I.V. Start: 3:29 PM Stop: 3:29 PM Medication: Versed Amount: 1 mg Route: I.V. Start: 4:04 PM Stop: 4:04 PM Medication: Plavix Amount: 600 mg Route: P.O. Start: 4:04 PM Stop: 4:04 PM Medication: Aggrastat 12.5 mg/250 mL Amount: 44 ml Route: I.V. bolus Start: 4:05 PM Stop: 4:05 PM Medication: Aggrastat 12.5 mg/250 mL Amount: 15.8 ml/hr Route: I.VMarine medina I, the attending physician, have reviewed and verified all procedure medications. Yes, all medications given per verbal order History/Risk Factors Hypertension: Yes Peripheral Arterial Disease (PAD): No Myocardial Infarction (MN): No Obesity: No Renal Disease: No Prior Interventions PCI: No CABG: No Valve Surgery: No Report Signatures Finalized by Jona Crawford MD on 12/07/2021 11:16 AM
--- NOTE | 2021-11-24 13:53 | W.PM.OPSUD ---
Surgery/Procedure H&P Update DATE OF PROCEDURE: November 24, 2021 DATE H&P PERFORMED: 11/24/21 H&P UPDATE INFORMATION: I have reviewed H&P completed within last 30 days, I have examined patient prior to procedure and No changes to prior documentation PREOP DIAGNOSIS: Ventricular fibrillation PRIMARY INDICATION FOR PROCEDURE: Ventricular fibrillation PLANNED PROCEDURE: Left heart cath with possible percutaneous coronary intervention PATIENT REASSESSED PRIOR TO SEDATION, WITH NO CHANGE NOTED: Yes PHYSICAL EXAM: alert, oriented x 3, clear to auscultation bilaterally and regular rate & rhythm AIRWAY EVAL/ANESTHESIA PLAN: ASA IV, Risks, benefits & alternatives of sedation and/or procedure discussed and Patient agrees to continue as planned
--- NOTE | 2021-11-24 17:06 | PM.MISC ---
Miscellaneous Note Purpose of Documentation: Brief procedure note Note: Coronary angiogram with percutaneous coronary intervention INDICATION: Ventricular fibrillation Left main artery: Patent LAD: Patent, has diffuse luminal irregularities LCx: Patent. RCA: Has posterior take off. Severe distal vessel stenosis s/p successful revascularization with RATNA x 1 Aspirin and Plavix for atleast 1 year Aggrastat gtt for 4 hours Full report to follow
--- NOTE | 2021-11-24 17:15 | ANE.PACU2 ---
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
[2021-11-24 17:32] LABS: Potassium, Radom Urine 50 mmol/L; Urine Creatinine 100 mg/dL (28-217)
[2021-11-24 17:35] LABS: Urine Random Sodium 11 mmol/L
[2021-11-24 17:43] LABS: Specific Gravity, Urine 1.005 (1.005-1.030); Urine Appearance Clear (CLEAR); Urine Color Yellow (Yellow); pH Urine 6.5 (5-7)
[2021-11-24 17:44] LABS: Add Urine Culture? No; Add Urine Microscopic? YES; Amorphous Sediment Urine 1+ /hpf; Bacteria Urine TRACE /hpf; Bilirubin Urine Neg (Negative); Blood Urine 2+ (Negative); Glucose Urine UA Norm (Normal); Ketones Urine Negative (Negative); Leukocyte Esterase Urine Negative (Negative); Nitrate Urine Negative (Negative); Protein Urine 1+ (Negative); RBC Urine 0-4 /hpf (0-2); Squamous Epithelial Cell Urine 0-4 /hpf (0-5); Urobilinogen Urine Norm (Negative); WBC Urine 0-4 /hpf (0-5)
[2021-11-24] MEDS: amiodarone 200 mg Tablet PO (17:46)
[2021-11-24 18:30] LABS: Urine Random Chloride < 10 mmol/L
--- NOTE | 2021-11-24 19:00 | PC.NURSE ---
Amiodarone drip stopped at 1900 per physician's orders and protocol.
[2021-11-24 19:26] LABS: Partial Thromboplastin Time 96.2 SECONDS (23.9-36.7)
--- NOTE | 2021-11-24 20:20 | PC.NURSE ---
Flonase Patient complaining of nasal congestion. Dr. Belcher called and notified; verbal order received for 1 spray of flonase PRN BID for congestion. See MAR for administration.
[2021-11-24] MEDS: piperacillin-tazobactam 3.375 GM in sodium chloride 0.9% (plus) 100 ML IV (21:01)
[2021-11-24] MEDS: atorvastatin 40 mg Tablet PO (21:01)
[2021-11-24 22:04] LABS: Partial Thromboplastin Time 31.6 SECONDS (23.9-36.7)
--- NOTE | 2021-11-24 23:58 | PC.NURSE ---
Sheath Removal Patient's BP and HR stable, PTT 31.6. No hematoma present on right wrist nor right groin. Sheath removed from right femoral artery at 2330. Pressure held by nurse for 20 minutes; no bleeding or hematoma present upon releasing pressure. Clear dressing placed over site. Bilateral dorsalis pedis pulses diminished, radial pulses present. To monitor.
[2021-11-25] VITALS (36 sets, daily range): BP systolic 115–159; BP diastolic 59–100; PULSE 79–105; RESP 16–30; TEMP 36.4–36.7; O2SAT 91–98; BMI 34.0
--- NOTE | 2021-11-25 00:20 | PC.NURSE ---
TR band In bedside report on patient, dayshift nurse reported 3 ml left in TR band on right wrist. No hematoma or bleeding noted. At 194, 2 ml of air removed and at 1999, TR band emptied of air and removed. Clear dressing placed over site. No hematoma noted upon dressing placement. At 0015, slight oozing in bandage noted. Drainage marked for further evaluation and site wrapped with coban for slight pressure.
[2021-11-25] MEDS: fluticasone nasal spray 16gm Btl 1 SPRAY NASAL (00:52)
[2021-11-25] MEDS: piperacillin-tazobactam 3.375 GM in sodium chloride 0.9% (plus) 100 ML IV ×3 (03:57→20:09)
[2021-11-25 05:14] LABS: Magnesium 1.8 mg/dL (1.7-2.3); Phosphorus 4.5 mg/dL (2.5-4.5)
--- NOTE | 2021-11-25 06:26 | XRR_ITS ---
PROCEDURE INFORMATION: Exam: XR Chest Exam date and time: 11/25/2021 8:10 AM Age: 76 years old Clinical indication: Shortness of breath; Additional info: Hypoxia TECHNIQUE: Imaging protocol: XR of the chest. Views: 1 view. COMPARISON: CR (CHEST, ) 11/23/2021 5:08 PM FINDINGS: Tubes, catheters and devices: Defibrillator pad overlies the left hemithorax. Lungs: Background of emphysema. Similar patchy bibasilar airspace opacities. Pleural spaces: Small bilateral pleural effusions. No pneumothorax. Heart/Mediastinum: Cardiomegaly. Bones/joints: Unremarkable. XR/XR chest 1V portable [id number] IMPRESSION: No substantial interval change. Similar cardiomegaly with patchy bibasilar airspace opacities and small bilateral pleural effusions.
[2021-11-25] MEDS: ALPRAZolam 0.5 mg Tablet 0.25 MG PO ×2 (06:30→18:17)
[2021-11-25] MEDS: ipratropium-albuterol 3 mL Neb INHALATION ×2 (06:32→08:39)
[2021-11-25] MEDS: ferrous gluconate 324 mg Tablet PO ×2 (07:52→17:30)
[2021-11-25] MEDS: aspirin 81 mg EC Tablet PO (08:01)
[2021-11-25] MEDS: docusate sodium 100 mg Capsule PO ×2 (08:01→17:31)
[2021-11-25] MEDS: amiodarone 200 mg Tablet PO ×2 (08:01→17:31)
[2021-11-25] MEDS: pantoprazole DR 40 mg Tablet PO (08:02)
[2021-11-25] MEDS: budesonide 0.5 mg/2 mL Neb INHALATION ×2 (08:39→19:57)
[2021-11-25 09:18] LABS: Basophils % 0.1 %; Hemoglobin 12.8 g/dL (11.5-15.3); Lymphocytes # 0.4 10^3/uL (0.8-4.8); Lymphocytes % 2.3 %; Mean Corpuscular Volume 93.7 fl (81-99); Mean Platelet Volume 11.4 fL (7.4-10.4); Monocytes # 0.9 10^3/uL (0.2-0.9); Monocytes % 5.3 %; Neutrophils # 14.78 10^3/uL (1.8-7.7); Neutrophils % 91.7 %; Nucleated Red Blood Cells % 0 %; Platelet Count 186 10^3/cmm (130-400); Red Blood Count 4.27 10^6/uL (4.1-5.3); Red Cell Distribution Width 16.3 % (12.1-15.1); White Blood Count 16.1 10^3/uL (4.0-10.0)
--- NOTE | 2021-11-25 09:42 | PM.PN ---
Subjective Subjective: Patient is short of breath. No chest pain. Underwent successful revascularization of distal RCA with RATNA X 1. Vitals/I&O/Wt Last Vital Signs Temp 97.5 F L 11/25/21 08:00 Pulse 98 11/25/21 09:00 Resp 22 H 11/25/21 09:00 BP 131/63 11/25/21 08:00 Pulse Ox 92 11/25/21 09:00 11/24/21 11/25/21 11/25/21 22:59 06:59 14:59 Intake Total 165.417 / 405.417 235 / 640.417 Output Total 400 / 400 425 / 825 Balance -234.583 / 5.417 -190 / -184.583 Weight last 48 hrs Weight 198 lb Weight 192 lb Weight 191 lb 6 oz Physical Exam Narrative: CONSTITUTIONAL: No fever chills weight loss or gain or night sweats. [] HEENT: Normocephalic, atraumatic.[] RESPIRATORY:? No cough, sputum, hemoptysis or wheezing.[] CARDIOVASCULAR: No shortness of breath, chest pain, PND, orthopnea, lower extremity edema, presyncope or syncope. [] GI: no nausea vomiting diarrhea. [] CLINICAL MEDICAL TRANSCRIPTIONIST: No numbness, tingling, weakness or loss of function in any part of the body. [] MUSCULOSKELETAL: No knee or joint pain or rashes. [] Urinary Catheter Management: Rubio: Cath Placed During This Visit: yes Reason for Continuing Indwelling Catheter: Accurate Measurement of Urinary Output in Critically Ill Patients Urinary Catheter Date of Insertion: 11/22/21 Urinary Catheter Time of Insertion: 14:33 Data : 11/25/21 08:30 11/25/21 08:30 Micro: Microbiology 11/22/21 13:45 MRSA Culture - Final Nose A&P Assessment and plan (1) Aspiration pneumonitis: Status: Acute (2) Acute kidney injury: Status: Acute (3) Cardiac arrest with ventricular fibrillation: Status: Acute (4) Chronic obstructive pulmonary disease: Status: Chronic Qualifiers: COPD type: COPD with acute exacerbation Qualified Code(s): J44.1 - Chronic obstructive pulmonary disease with (acute) exacerbation (5) CHF (congestive heart failure): Status: Acute (6) Hypertension: Status: Chronic Plan Patient had ventricular fibrillation requiring defibrillation with shock x1. She again had nonsustained VT yesterday. She has new onset congestive heart failure. No known coronary artery disease history. Coronary angiogram showed severe distal RCA stenosis that underwent successful revascularization with RATNA X1 . Renal function has improved today. Continue to monitor Continue aspirin and plavix for atleast 1 year Will start patient on IV Lasix ECHO shows EF of 30%. We will consult Dr Barrett for ICD placement on Saturday. She has non-ischemic cardiomyopathy as only had distal RCA stenosis that does not explain her LVEF of 30%. As she had vetricular fibrillation with significant cardiomyopathy,will recommend ICD placement Thank you for involving us with care of this patient. We will continue to follow Attestations Medical Necessity Statement*: Care expected to cross 2 midnights. 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
[2021-11-25] MEDS: FUROsemide 10 mg/mL SDV 4mL 40 MG IVP (10:03)
[2021-11-25] MEDS: clopidogrel 75 mg Tablet PO (10:03)
--- NOTE | 2021-11-25 10:22 | DCPLANNER ---
IMM was given to pt on 11/25/21 @ 2292. Pt was given a copy of his rights and stated he understood his rights.
[2021-11-25 10:35] LABS: Alanine Aminotransferase 50 U/L (0-33); Albumin Level 3.5 g/dL (3.5-5.2); Alkaline Phosphatase 95 IU/L (35-105); Anion Gap 19.4 (5-19); Aspartate Amino Transferase 39 U/L (0-32); Blood Urea Nitrogen 25 mg/dL (8-23); Calcium 8.1 mg/dL (8.5-10.5); Carbon Dioxide 24 mmol/L (22-29); Chloride 99 mmol/L (98-107); Globulin 2.3 g/dL (1.3-4.6); Glucose 101 mg/dL (65-115); Osmolality Calculated 291 mOsm/kg (285-295); Potassium 4.4 mmol/L (3.5-5.1); Sodium 138 mmol/L (136-145); Total Bilirubin 0.8 mg/dL (0.15-1.2); Total Protein 5.8 g/dL (6.6-8.7)
--- NOTE | 2021-11-25 11:29 | P.PN_ITS ---
Subjective Subjective: No acute events overnight. Today morning patient was feeling short of breath so was placed on BiPAP. On examination she is on 3 L nasal cannula. Complaining of pain in the chest secondary to CPR. States pain is different from her chest pain prior to admission. Denies any nausea, vomiting, headache, dizziness. Family at bedside. Vitals/I&O/Wt Last Vital Signs Temp 97.5 F L 11/25/21 08:00 Pulse 92 11/25/21 10:49 Resp 28 H 11/25/21 10:00 BP 148/78 11/25/21 10:00 Pulse Ox 96 11/25/21 10:49 11/24/21 11/25/21 11/25/21 22:59 06:59 14:59 Intake Total 165.417 / 405.417 235 / 640.417 Output Total 400 / 400 425 / 825 140 / 140 Balance -234.583 / 5.417 -190 / -184.583 -140 / -140 Weight last 48 hrs Weight 89.811 kg Weight 87.09 kg Weight 86.806 kg Physical Exam Narrative: Constitutional: Awake and alert, acutely and chronically ill-appearing, HEENT: Normocephalic, atraumatic, extraocular movements are intact, pupils are equally round and reactive to light, nasopharynx is clear, oropharynx with moist mucous membranes, upper and lower dentures noted Neck: Supple, JVD noted up to the earlobe with prominent venous waves Respiratory: Inspiratory and expiratory wheezes noted bilaterally, mild supraclavicular retractions and intercostal retractions, no abdominal breathing, able to talk in complete sentences without difficulty in breathing, no pursed lip breathing appreciated, no nasal flaring, sitting up in bed. Increased dyspnea with supine positioning. Cardiovascular: Tachycardic, distant heart sounds obscured by pulmonary sounds, regular, no discernible murmurs or rubs 1+ radial pulses, dorsalis pedis pulses are weaker than radial pulses but palpable, brisk capillary refill is noted Abdomen: Soft, quite rounded in upright positioning in ER bed though not as discernible when laid more supine, bowel sounds, nontender : Normal external genitalia, minimal erythema in intertriginous areas more so on the right than the left, Rubio catheter noted with approximately 1700 mL of urine, clear and faintly yellow Extremities: 4+ pitting edema, no weeping noted, general tenderness in areas of edema, right lower extremity is slightly larger than left lower extremity at the mid ward but less than a centimeter difference, no appreciable focal calf tenderness or palpable cords, both feet are cool to touch but not cyanotic, clubbing noted Skin: Chronic stasis changes with some areas of desquamating skin appreciated, no areas of significant warmth, scattered erythema but not in a discernible pattern, no large areas of bruising appreciated Neuro: Speech clear, visual murillo appear grossly intact, face symmetric, speech is clear, handgrip is equal, sensation is intact and equal to light touch at both feet Psych: Seems down, affect consistent with current clinical condition Urinary Catheter Management: Rubio: Cath Placed During This Visit: yes Reason for Continuing Indwelling Catheter: Accurate Measurement of Urinary Output in Critically Ill Patients Urinary Catheter Date of Insertion: 11/22/21 Urinary Catheter Time of Insertion: 14:33 Data : 11/25/21 08:30 11/25/21 08:30 Micro: Microbiology 11/22/21 13:45 MRSA Culture - Final Nose A&P Assessment and plan (1) Cardiac arrest with successful resuscitation: Ice pad, Lidocaine patch. Will avoid ibuprofen, NSAIDs, oxy as patient allergic. Status: Acute (2) Cardiac arrest with ventricular fibrillation: Continue with amiodarone 200 mg twice daily. Underwent CAG yesterday and PCI to RCA. Will need ICD for secondary prevention. Keep potassium around 4, magnesium over 2. Will monitor QTC. Troponin slightly elevated most likely post CPR. Switch to PPx dose of lovenox. Continue with aspirin 81 mg daily, Atorvastatin 40 mg oral daily. A1c 5.6. Status: Acute (3) CAD (coronary artery disease): Post PCI to RCA. C/w ASA, plavix, statin. Chest pain free. ECHO appreciated. Status: Acute (4) CHF (congestive heart failure): Echocardiogram shows an EF of 30% with global LV hypokinesia and dilatation, normal RV size, mild to trace mitral regurgitation, moderate aortic valve regurgitation, trace TR. Congestive heart failure systolic type. Strict input for charting, daily weights. Gentle IV diuresis. IV lasix 40 daily. Start on metoprolol 25 mg BID. Will initiate heart failure medications including LOBO inhibitor, spironolactone. Status: Acute Qualifiers: Heart failure chronicity: acute (5) Chronic obstructive pulmonary disease: Switch DuoNeb to Ipratropium and xoponex QID, budesonide twice daily. Wean off Solu-Medrol to 40 mg IV daily. Post CPR there is a concern for possible aspiration pneumonia versus pneumonitis. Continue with Zosyn. MRSA swab negative, sputum culture awaited. Incentive spirometry. Status: Chronic Qualifiers: COPD type: COPD with acute exacerbation Qualified Code(s): J44.1 - Chronic obstructive pulmonary disease with (acute) exacerbation (6) Acute kidney injury: Most likely secondary to aggressive diuresis and slightly vascular depleted, Lasix na?ve patient. Creatinine improving. Creat 1.3 today. Medical reconciliation done for nephrotoxic drugs. Hold off on LOBO inhibitor for now. We will restart diuresis at a lower rate at 40 mg daily today. Monitor BMP daily. Status: Acute (7) Aspiration pneumonitis: Status: Acute (8) Hypertension: Goal blood pressure less than 140/90 mmHg. Start on metoprolol today. Will add ACEi as per creatinine accordingly. Status: Chronic Qualifiers: Hypertension type: primary hypertension Qualified Code(s): I10 - Essential (primary) hypertension (9) Nicotine dependence, cigarettes, with other nicotine-induced disorders: ~60 pack year history, does express interest in wanting to quit, has tried many times unsuccessfully really making it more than a couple of days Nicotine patch if needed Encouraged repeated attempts at smoking cessation Status: Chronic Plan Full code. Cardiac diet. Lovenox for DVTprophylaxis. Protonix for PUD prophylaxis. Patient's care discussed in detail with patient's daughter, patient herself at bedside. All the questions were answered. Plan to transfer out of ICU to CSU today. Plan for the day: Start on Lasix 40 mg daily. Start on metoprolol 25 mg twice daily. Switch diet to mechanical soft diet. Out of bed to chair. Ice pack and lidocaine patch for costochondritis from CPR. Wean Solu-Medrol to 40 mg daily. Switch DuoNeb to ipratropium and Xopenex. Start on Carafate. Out of ICU to CSU Attestations Medical Necessity Statement*: Requires further hospitalization for management of systolic congestive heart failure, V. 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
[2021-11-25] MEDS: enoxaparin 40 mg/0.4 mL Syringe SUBCUT (12:29)
[2021-11-25] MEDS: metoprolol tartrate 25 mg Tablet PO ×2 (12:29→20:08)
[2021-11-25] MEDS: levalbuterol 1.25 mg/3 mL Neb INHALATION ×3 (12:31→19:57)
[2021-11-25] MEDS: ipratropium 0.5 mg/2.5 mL Neb INHALATION ×3 (12:31→19:57)
[2021-11-25] MEDS: sucralfate 1 gm Tablet PO ×3 (12:32→20:08)
[2021-11-25] MEDS: lidocaine 5% Patch 1 PATCH TOPICAL (13:51)
[2021-11-25] MEDS: magnesium oxide 400 mg tablet PO (17:30)
[2021-11-25] MEDS: acetaminophen 325 mg Tablet 650 MG PO (19:12)
[2021-11-25] MEDS: nicotine 21 mg Patch 1 PATCH TRANSDERMA (19:16)
[2021-11-25] MEDS: atorvastatin 40 mg Tablet PO (20:08)
--- NOTE | 2021-11-25 20:26 | PC.NURSE ---
Nicotine/Family At Bedside Patient's daughter and son in law at bedside upon assessment of patient. Patient care discussed; specific topics inquired about by daughter included questions regarding carafate administration, pain relief options, nicotine patch use, oxygen requirements, and visiting hours. Patient's daughter also requested that the nicotine patch be changed to a daily scheduled medication rather than a PRN medication due to daughter's perception of patient's agitation and patient request. Dr. Belcher contacted and telephone order received to change nicotine patch to a daily schedule medication. Order placed and family notified. Family verbalized understanding to all education.
[2021-11-26] VITALS (53 sets, daily range): BP systolic 94–159; BP diastolic 53–83; PULSE 63–93; RESP 15–31; TEMP 36.4–37.1; O2SAT 89–99; BMI 33.6
[2021-11-26] MEDS: TRAMadol 50 mg Tablet PO (00:34)
[2021-11-26] MEDS: piperacillin-tazobactam 3.375 GM in sodium chloride 0.9% (plus) 100 ML IV ×3 (04:08→20:17)
[2021-11-26 04:13] LABS: Basophils % 0.1 %; Hematocrit 38.2 % (37.0-47.0); Hemoglobin 11.9 g/dL (11.5-15.3); Lymphocytes # 0.6 10^3/uL (0.8-4.8); Lymphocytes % 4.4 %; Mean Corpuscular HGB Conc 31.2 g/dL (30.0-36.0); Mean Corpuscular Hemoglobin 29.2 pg (28.0-34.0); Mean Corpuscular Volume 93.6 fl (81-99); Mean Platelet Volume 11.3 fL (7.4-10.4); Monocytes # 0.9 10^3/uL (0.2-0.9); Monocytes % 6.5 %; Neutrophils # 12.08 10^3/uL (1.8-7.7); Neutrophils % 88.4 %; Nucleated Red Blood Cells % 0 %; Platelet Count 176 10^3/cmm (130-400); Red Blood Count 4.08 10^6/uL (4.1-5.3); White Blood Count 13.7 10^3/uL (4.0-10.0)
[2021-11-26] MEDS: acetaminophen 325 mg Tablet 650 MG PO (04:15)
[2021-11-26 04:30] LABS: Alanine Aminotransferase 47 U/L (0-33); Albumin Level 3.4 g/dL (3.5-5.2); Alkaline Phosphatase 87 IU/L (35-105); Anion Gap 11.9 (5-19); Aspartate Amino Transferase 28 U/L (0-32); Blood Urea Nitrogen 29 mg/dL (8-23); Calcium 7.9 mg/dL (8.5-10.5); Carbon Dioxide 32 mmol/L (22-29); Chloride 100 mmol/L (98-107); Globulin 1.9 g/dL (1.3-4.6); Glucose 92 mg/dL (65-115); Magnesium 1.9 mg/dL (1.7-2.3); Osmolality Calculated 295 mOsm/kg (285-295); Potassium 3.9 mmol/L (3.5-5.1); Sodium 140 mmol/L (136-145); Total Bilirubin 0.8 mg/dL (0.15-1.2); Total Protein 5.3 g/dL (6.6-8.7)
[2021-11-26] MEDS: sucralfate 1 gm Tablet PO ×3 (06:12→20:17)
[2021-11-26] MEDS: ALPRAZolam 0.5 mg Tablet 0.25 MG PO (06:44)
[2021-11-26] MEDS: levalbuterol 1.25 mg/3 mL Neb INHALATION ×4 (07:31→20:06)
[2021-11-26] MEDS: ferrous gluconate 324 mg Tablet PO ×2 (07:31→18:28)
[2021-11-26] MEDS: ipratropium 0.5 mg/2.5 mL Neb INHALATION ×4 (07:31→20:06)
[2021-11-26] MEDS: budesonide 0.5 mg/2 mL Neb INHALATION ×2 (07:32→20:07)
[2021-11-26] MEDS: aspirin 81 mg EC Tablet PO (09:13)
[2021-11-26] MEDS: FUROsemide 10 mg/mL SDV 4mL 40 MG IVP ×2 (09:13→18:27)
[2021-11-26] MEDS: nicotine 21 mg Patch 1 PATCH TRANSDERMA (09:13)
[2021-11-26] MEDS: pantoprazole DR 40 mg Tablet PO (09:13)
[2021-11-26] MEDS: clopidogrel 75 mg Tablet PO (09:13)
[2021-11-26] MEDS: magnesium oxide 400 mg tablet PO ×2 (09:13→18:28)
[2021-11-26] MEDS: amiodarone 200 mg Tablet PO ×2 (09:13→18:28)
[2021-11-26] MEDS: docusate sodium 100 mg Capsule PO ×2 (09:13→18:28)
[2021-11-26] MEDS: metoprolol tartrate 25 mg Tablet PO ×2 (09:20→20:17)
[2021-11-26] MEDS: lidocaine 5% Patch 1 PATCH TOPICAL (09:20)
--- NOTE | 2021-11-26 09:33 | PM.PN ---
Subjective Subjective: Patient is short of breath. No chest pain Vitals/I&O/Wt Last Vital Signs Temp 98 F 11/26/21 04:00 Pulse 88 11/26/21 08:21 Resp 16 11/26/21 08:21 BP 144/66 11/26/21 05:00 Pulse Ox 94 11/26/21 08:21 11/25/21 11/26/21 11/26/21 22:59 06:59 14:59 Intake Total 145 / 245 100 / 345 100 / 100 Output Total 600 / 1240 425 / 1665 Balance -455 / -995 -325 / -1320 100 / 100 Weight last 48 hrs Weight 196 lb Weight 198 lb Physical Exam Narrative: CONSTITUTIONAL: Alert and oriented x 3 HEENT: Normocephalic, atraumatic.[] RESPIRATORY:? Has bilateral mild crackles CARDIOVASCULAR: S1, S2, normal rate and rhythm GI: Soft EXTREMITIES: Has 2+ edema Urinary Catheter Management: Rubio: Cath Placed During This Visit: yes Reason for Continuing Indwelling Catheter: Accurate Measurement of Urinary Output in Critically Ill Patients Urinary Catheter Date of Insertion: 11/22/21 Urinary Catheter Time of Insertion: 14:33 Data : 11/26/21 03:30 11/26/21 03:30 A&P Assessment and plan (1) Aspiration pneumonitis: Status: Acute (2) Acute kidney injury: Status: Acute (3) Cardiac arrest with ventricular fibrillation: Status: Acute (4) Chronic obstructive pulmonary disease: Status: Chronic Qualifiers: COPD type: COPD with acute exacerbation Qualified Code(s): J44.1 - Chronic obstructive pulmonary disease with (acute) exacerbation (5) CHF (congestive heart failure): Status: Acute (6) Hypertension: Status: Chronic Plan Patient had ventricular fibrillation requiring defibrillation with shock x1. She again had nonsustained VT yesterday. She has new onset congestive heart failure. No known coronary artery disease history. Coronary angiogram showed severe distal RCA stenosis that underwent successful revascularization with RATNA X1 . Renal function has improved and is stable. No evidence of ELIZABETH Continue aspirin and plavix for atleast 1 year Lasix uptitrated to 40mg BID as respiratory status has worsened ECHO shows EF of 30%. We will consult Dr Barrett for ICD placement on Saturday. She has non-ischemic cardiomyopathy as only had distal RCA stenosis that does not explain her LVEF of 30%. As she had vetricular fibrillation with significant cardiomyopathy,will recommend ICD placement Thank you for involving us with care of this patient. We will continue to follow Attestations Medical Necessity Statement*: Care expected to cross 2 midnights. 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
--- NOTE | 2021-11-26 10:25 | PC.NURSE ---
Clarified order for morphine with Dr. Demarco due to patient reported allergy to codeine. Verified that still wanted morphine ordered. Received call from pharmacy to clarify order and confirmed that Dr. Demarco did want to continue with order for morphine.
[2021-11-26] MEDS: morphine 4 mg/mL SDV 1 mL 1 MG IVP ×2 (10:49→16:25)
[2021-11-26] MEDS: enoxaparin 40 mg/0.4 mL Syringe SUBCUT (13:08)
--- NOTE | 2021-11-26 13:09 | P.PN_ITS ---
Subjective Subjective: No acute overnight. Seen sitting up in bed. Not having much of an appetite. Complaining of shortness of breath. Aggravated on coughing. Denies any nausea, vomiting, headache. Use BiPAP at night. Denies any chest pain. Vitals/I&O/Wt Last Vital Signs Temp 97.6 F 11/26/21 07:30 Pulse 89 11/26/21 13:05 Resp 16 11/26/21 13:05 BP 154/71 11/26/21 09:30 Pulse Ox 93 11/26/21 13:05 11/25/21 11/26/21 11/26/21 22:59 06:59 14:59 Intake Total 145 / 245 100 / 345 200 / 200 Output Total 600 / 1240 425 / 1665 600 / 600 Balance -455 / -995 -325 / -1320 -400 / -400 Weight last 48 hrs Weight 88.904 kg Weight 89.811 kg Physical Exam Narrative: Constitutional: Awake and alert, acutely and chronically ill-appearing, HEENT: Normocephalic, atraumatic, extraocular movements are intact, pupils are equally round and reactive to light, nasopharynx is clear, oropharynx with moist mucous membranes, upper and lower dentures noted Neck: Supple, JVD noted up to the earlobe with prominent venous waves Respiratory: Inspiratory and expiratory wheezes noted bilaterally, mild supraclavicular retractions and intercostal retractions, no abdominal breathing, able to talk in complete sentences without difficulty in breathing, no pursed lip breathing appreciated, no nasal flaring, sitting up in bed. Increased dyspnea with supine positioning. Cardiovascular: Tachycardic, distant heart sounds obscured by pulmonary sounds, regular, no discernible murmurs or rubs 1+ radial pulses, dorsalis pedis pulses are weaker than radial pulses but palpable, brisk capillary refill is noted Abdomen: Soft, quite rounded in upright positioning in ER bed though not as discernible when laid more supine, bowel sounds, nontender : Normal external genitalia, minimal erythema in intertriginous areas more so on the right than the left, Rubio catheter noted with approximately 1700 mL of urine, clear and faintly yellow Extremities: 4+ pitting edema, no weeping noted, general tenderness in areas of edema, right lower extremity is slightly larger than left lower extremity at the mid ward but less than a centimeter difference, no appreciable focal calf tenderness or palpable cords, both feet are cool to touch but not cyanotic, clubbing noted Skin: Chronic stasis changes with some areas of desquamating skin appreciated, no areas of significant warmth, scattered erythema but not in a discernible pattern, no large areas of bruising appreciated Neuro: Speech clear, visual murillo appear grossly intact, face symmetric, speech is clear, handgrip is equal, sensation is intact and equal to light touch at both feet Psych: Seems down, affect consistent with current clinical condition Urinary Catheter Management: Rubio: Cath Placed During This Visit: yes Reason for Continuing Indwelling Catheter: Accurate Measurement of Urinary Output in Critically Ill Patients Urinary Catheter Date of Insertion: 11/22/21 Urinary Catheter Time of Insertion: 14:33 Data : 11/26/21 03:30 11/26/21 03:30 A&P Assessment and plan (1) Cardiac arrest with successful resuscitation: Ice pad, Lidocaine patch. Will avoid ibuprofen, NSAIDs, oxy as patient allergic. Status: Acute (2) Cardiac arrest with ventricular fibrillation: Continue with amiodarone 200 mg twice daily. Underwent CAG yesterday and PCI to RCA. Will need ICD for secondary prevention. Keep potassium around 4, magnesium over 2. Will monitor QTC. Troponin slightly elevated most likely post CPR. Switch to PPx dose of lovenox. Continue with aspirin 81 mg daily, Atorvastatin 40 mg oral daily. A1c 5.6. Status: Acute (3) CAD (coronary artery disease): Post PCI to RCA. C/w ASA, plavix, statin. Chest pain free. ECHO appreciated. Status: Acute (4) CHF (congestive heart failure): Echocardiogram shows an EF of 30% with global LV hypokinesia and dilatation, normal RV size, mild to trace mitral regurgitation, moderate aortic valve regurgitation, trace TR. Congestive heart failure systolic type. Strict input for charting, daily weights. Gentle IV diuresis. IV lasix 40 daily. Start on metoprolol 25 mg BID. Will initiate heart failure medications including LOBO inhibitor, spironolactone. Status: Acute (5) Chronic obstructive pulmonary disease: Switch DuoNeb to Ipratropium and xoponex QID, budesonide twice daily. Wean off Solu-Medrol to 40 mg IV daily. Post CPR there is a concern for possible aspiration pneumonia versus pneumonitis. Continue with Zosyn. MRSA swab negative, sputum culture awaited. Incentive spirometry. Status: Chronic Qualifiers: COPD type: COPD with acute exacerbation Qualified Code(s): J44.1 - Chronic obstructive pulmonary disease with (acute) exacerbation (6) Acute kidney injury: Most likely secondary to aggressive diuresis and slightly vascular depleted, Lasix na?ve patient. Creatinine improving. Creat 1.3 today. Medical reconciliation done for nephrotoxic drugs. Hold off on LOBO inhibitor for now. We will restart diuresis at a lower rate at 40 mg daily today. Monitor BMP daily. Status: Acute (7) Aspiration pneumonitis: Status: Acute (8) Hypertension: Goal blood pressure less than 140/90 mmHg. Start on metoprolol today. Will add ACEi as per creatinine accordingly. Status: Chronic (9) Nicotine dependence, cigarettes, with other nicotine-induced disorders: ~60 pack year history, does express interest in wanting to quit, has tried many times unsuccessfully really making it more than a couple of days Nicotine patch if needed Encouraged repeated attempts at smoking cessation Status: Chronic Plan Full code. Cardiac diet. Lovenox for DVTprophylaxis. Protonix for PUD prophylaxis. Patient's care discussed in detail with patient's daughter, patient herself at bedside. All the questions were answered. Plan to transfer out of ICU to CSU today. Plan for the day: IV Lasix 40 mg twice daily today. Continue with metoprolol. Will uptitrate blood pressure medication and start LOBO inhibitor for the next 24 to 48 hours depending on urine output. Monitor BMP. Continue with soft mechanical diet. Morphine 1 mg IV every 4 hours as needed. PT. Incentive spirometry. Sputum culture. Attestations Medical Necessity Statement*: Requires further hospitalization for management of acute congestive heart failure, EF of 30%, post V. 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
--- NOTE | 2021-11-26 14:29 | PC.NURSE ---
Meals- Patient refusing morning and afternoon meals. Offered ensure and patient was not interested in drinking it. At approximately 1400 this nurse concerned for patient nutrition offered fruit cup from cafeteria. Patient was able to consume about half of fruit cup, but stated she felt full and didn't want the rest.
--- NOTE | 2021-11-26 17:47 | PC.NURSE ---
Contacts/family updates- Spoke with patients viktor Oconnell via phone, daughter given update and all questions answered. Daughter states she is DPOA and does not want any other callers to receive information. Daughter informed that Patient gave verbal consent to give information to patients sister- Tess Kenney. This nurse evaluated patient as AOX4 and able to give consent.
[2021-11-26] MEDS: atorvastatin 40 mg Tablet PO (20:17)
[2021-11-27] VITALS (48 sets, daily range): BP systolic 117–164; BP diastolic 40–81; PULSE 68–95; RESP 15–40; TEMP 36.7–37.1; O2SAT 89–100
[2021-11-27] MEDS: piperacillin-tazobactam 3.375 GM in sodium chloride 0.9% (plus) 100 ML IV ×2 (03:37→13:31)
[2021-11-27] MEDS: sucralfate 1 gm Tablet PO ×4 (06:09→20:05)
[2021-11-27 06:10] LABS: Basophils % 0.1 %; Eosinophils % 0.1 %; Hematocrit 43.3 % (37.0-47.0); Hemoglobin 13.6 g/dL (11.5-15.3); Lymphocytes # 0.4 10^3/uL (0.8-4.8); Lymphocytes % 3.1 %; Mean Corpuscular HGB Conc 31.4 g/dL (30.0-36.0); Mean Corpuscular Hemoglobin 29.4 pg (28.0-34.0); Mean Corpuscular Volume 93.7 fl (81-99); Monocytes # 0.7 10^3/uL (0.2-0.9); Monocytes % 5.4 %; Neutrophils # 12.21 10^3/uL (1.8-7.7); Neutrophils % 90.9 %; Nucleated Red Blood Cells % 0 %; Platelet Count 180 10^3/cmm (130-400); Red Blood Count 4.62 10^6/uL (4.1-5.3); Red Cell Distribution Width 15.7 % (12.1-15.1); White Blood Count 13.5 10^3/uL (4.0-10.0)
[2021-11-27 06:47] LABS: Alanine Aminotransferase 53 U/L (0-33); Albumin Level 3.8 g/dL (3.5-5.2); Alkaline Phosphatase 103 IU/L (35-105); Aspartate Amino Transferase 38 U/L (0-32); Blood Urea Nitrogen 26 mg/dL (8-23); Calcium 8.2 mg/dL (8.5-10.5); Carbon Dioxide 30 mmol/L (22-29); Chloride 96 mmol/L (98-107); Globulin 2.1 g/dL (1.3-4.6); Glucose 102 mg/dL (65-115); Osmolality Calculated 293 mOsm/kg (285-295); Sodium 139 mmol/L (136-145); Total Bilirubin 1.1 mg/dL (0.15-1.2); Total Protein 5.9 g/dL (6.6-8.7)
[2021-11-27 06:48] LABS: Anion Gap 16.9 (5-19); Potassium 3.9 mmol/L (3.5-5.1)
[2021-11-27 07:04] LABS: Magnesium 1.8 mg/dL (1.7-2.3)
[2021-11-27] MEDS: budesonide 0.5 mg/2 mL Neb INHALATION ×2 (08:02→20:22)
[2021-11-27] MEDS: levalbuterol 1.25 mg/3 mL Neb INHALATION ×4 (08:02→20:22)
[2021-11-27] MEDS: ipratropium 0.5 mg/2.5 mL Neb INHALATION ×4 (08:02→20:22)
[2021-11-27] MEDS: docusate sodium 100 mg Capsule PO ×2 (08:27→17:48)
[2021-11-27] MEDS: magnesium oxide 400 mg tablet PO ×2 (08:28→17:48)
[2021-11-27] MEDS: amiodarone 200 mg Tablet PO ×2 (08:28→17:48)
[2021-11-27] MEDS: aspirin 81 mg EC Tablet PO (08:28)
[2021-11-27] MEDS: ferrous gluconate 324 mg Tablet PO ×2 (08:28→17:47)
[2021-11-27] MEDS: pantoprazole DR 40 mg Tablet PO (08:28)
[2021-11-27] MEDS: metoprolol tartrate 25 mg Tablet PO ×2 (08:29→20:05)
[2021-11-27] MEDS: FUROsemide 10 mg/mL SDV 4mL 40 MG IVP ×2 (08:29→17:47)
[2021-11-27] MEDS: nicotine 21 mg Patch 1 PATCH TRANSDERMA (08:29)
[2021-11-27] MEDS: lidocaine 5% Patch 1 PATCH TOPICAL (08:29)
[2021-11-27] MEDS: clopidogrel 75 mg Tablet PO (08:29)
[2021-11-27] MEDS: predniSONE 20 mg Tablet 40 MG PO (08:29)
--- NOTE | 2021-11-27 09:29 | PC.CHAP ---
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 [] Patient/Family/Request visit [] Outpatient visit [] Follow-up visit [] Physician referral [] Code/Alert [x] Routine visit [] Staff referral [] Actively dying [] Patient sleeping [] Family support [] [] Out of room [] Palliative care [] [] Receiving care in room [] Pre-surgical visit [] Trauma [] Long length of stay [x] ICU visit [] Other: Relational/Emotional Strength [] Patient feels connected with others/family/visitors/staff [] Distress [] Loneliness/isolation [] Abandonment Spirituality of Patient [] Person of Janet [] Attends Yazidi of their Janet [] Believes in Prayer [] Reads Bible or Lutheran materials [] There are Spiritual issues to be addressed Public Opinion Survey Taker Interventions [x] Prayer [x] Active listening [x] Non-anxious presence [x] Spiritual/emotional support [] Crisis/trauma care [] Spiritual counseling [] Bereavement support [] Provided bereavement packet [] Provided Bible/devotional materials [] Provided toy/stuffed animal, coloring book to patient or family member [] Provided Communion [] Anointing/[place] [] Salvation [x] Completed spiritual assessment [] Other: Impact on Illness or Injury [] Angry [] Fearful [] Anxious [] Often cries [] Exhaustion [] Unable to work [] Unable to attend taoist [] Unable to walk/stand [] Unable to read [] Unable to drive [] Unable to eat/drink [] Unable to sleep [] Unable to be with family [] Patient intubated [] Other: Summary patient a little upset about not going home yet.... Time spent with patient 5 min
--- NOTE | 2021-11-27 11:08 | PM.PN ---
Subjective Subjective: Patient was seen and examined this morning resting comfortably in bed was seen eating breakfast. Continues to have good urine output, Medications: Medication Review Details: Generic Name Dose Route Start Last Admin Trade Name Daisha PRN Reason Stop Dose Admin Acetaminophen 650 mg 11/22/21 17:04 11/26/21 04:15 Acetaminophen 32 5 Mg Tablet PO 650 mg Q6H PRN Administration Mild/Mod Pain Or Temp >/= 101 Albuterol/Ipratrop ium 3 ml 11/22/21 17:04 11/25/21 06:32 Ipratropium-Albu terol 3 Ml Neb INHALATION 3 ml Q6H PRN Administration SHORTNESS OF MARK TH Alprazolam 0.25 mg 11/24/21 16:53 11/26/21 06:44 Alprazolam 0.5 M g Tablet PO 0.25 mg TID PRN Administration ANXIETY Amiodarone HCl 200 mg 11/24/21 18:00 11/27/21 08:28 Amiodarone 200 M g Tablet PO 200 mg BID JOHN Administration Aspirin 81 mg 11/23/21 09:00 11/27/21 08:28 Aspirin 81 Mg Ec Tablet PO 81 mg DAILY JOHN Administration Atorvastatin Calci um 40 mg 11/24/21 21:00 11/26/21 20:17 Atorvastatin 40 Mg Tablet PO 40 mg BEDTIME JOHN Administration Budesonide 0.5 mg 11/22/21 20:00 11/27/21 08:02 Budesonide 0.5 M g/2 Ml Neb INHALATION 0.5 mg BID.RESPIRATORY S CH Administration Clopidogrel Bisulf ate 75 mg 11/25/21 09:45 11/27/21 08:29 Clopidogrel 75 M g Tablet PO 75 mg DAILY JOHN Administration Docusate Sodium 100 mg 11/22/21 18:00 11/27/21 08:27 Docusate Sodium 100 Mg Capsule PO 100 mg BID JOHN Administration Enoxaparin Sodium 40 mg 11/25/21 12:00 11/26/21 13:08 Enoxaparin 40 Mg /0.4 Ml Syringe SUBCUT 40 mg Q24H JOHN Administration Ferrous Gluconate 324 mg 11/23/21 18:00 11/27/21 08:28 Ferrous Gluconat e 324 Mg Tablet PO 324 mg BIDWM JOHN Administration Fluticasone Propio meliza 1 spray 11/25/21 00:11 11/25/21 00:52 Fluticasone Nasa l Schriever 16gm Btl NASAL 1 spray BID PRN Administration NASAL CONGESTION Furosemide 40 mg 11/26/21 18:00 11/27/21 08:29 Furosemide 10 Mg /Ml Sdv 4ml IVP 40 mg BID JOHN Administration Piperacillin Sod/T azobactam 100 mls @ 25 mls/ hr 11/24/21 20:15 11/27/21 03:37 Sod 3.375 gm/ So dium Chloride IV 25 mls/hr Q8H JOHN Administration Ipratropium Bromid e 0.5 mg 11/25/21 12:00 11/27/21 08:02 Ipratropium 0.5 Mg/2.5 Ml Neb INHALATION 0.5 mg QID.RESPIRATORY S CH Administration Levalbuterol HCl 1.25 mg 11/25/21 12:00 11/27/21 08:02 Levalbuterol 1.2 5 Mg/3 Ml Neb INHALATION 1.25 mg QID.RESPIRATORY S CH Administration Lidocaine 1 patch 11/25/21 13:45 11/27/21 08:29 Lidocaine 5% Pat ch TOPICAL 1 patch [id number] JOHN Administration Magnesium Oxide 400 mg 11/25/21 18:00 11/27/21 08:28 Magnesium Oxide 400 Mg Tablet PO 400 mg BID JOHN Administration Metoprolol Tartrat e 25 mg 11/25/21 11:30 11/27/21 08:29 Metoprolol Tartr ate 25 Mg Tablet PO 25 mg BID@0900,2100 JOHN Administration Morphine Sulfate 1 mg 11/26/21 10:16 11/26/21 16:25 Morphine 4 Mg/Ml Sdv 1 Ml IVP 1 mg Q4H PRN Administration SEVERE PAIN Nicotine 1 patch 11/26/21 09:00 11/27/21 08:29 Nicotine 21 Mg P atch TRANSDERMA 1 patch DAILY JOHN Administration Pantoprazole Sodiu m 40 mg 11/23/21 09:00 11/27/21 08:[address] 40 Mg Tablet PO 40 mg DAILY JOHN Administration Prednisone 40 mg 11/27/21 09:00 11/27/21 08:29 Prednisone 20 Mg Tablet PO 40 mg DAILY JOHN Administration Sucralfate 1 gm 11/25/21 11:00 11/27/21 10:56 Sucralfate 1 Gm Tablet PO 1 gm AC&BEDTIME JOHN Administration Tramadol HCl 50 mg 11/22/21 17:04 11/26/21 00:34 Tramadol 50 Mg T ablet PO 50 mg Q6H PRN Administration MODERATE TO SEVER E PAIN Vitals/I&O/Wt Last Vital Signs Temp 98.0 F 11/26/21 23:30 Pulse 85 11/27/21 08:07 Resp 22 H 11/27/21 08:07 BP 164/60 11/27/21 08:00 Pulse Ox 97 11/27/21 08:07 11/26/21 11/27/21 11/27/21 22:59 06:59 14:59 Intake Total 400 / 600 300 / 900 300 / 300 Output Total 1700 / 2300 800 / 3100 Balance -1300 / -1700 -500 / -2200 300 / 300 Weight last 48 hrs Weight 88.904 kg Physical Exam Const: COMMON NORMALS: patient oriented x3 HENMT: COMMON NORMALS: normocephalic and atraumatic HEAD & SCALP: normocephalic and atraumatic Eye: GENERAL EYE: appearance normal, both eyes and all related structures Chest: COMMONS NORMALS: normal inspection of the chest and normal palpation of entire chest wall CHEST: Yes Symmetrical chest wall rise Resp: COMMON NORMALS: normal respiratory effort, No retractions, No use of accessory muscles and clear to auscultation bilaterally EFFORT & INSPECTION: Yes symmetric chest movement AUSCULTATION: clear to auscultation bilaterally Cardio: COMMON NORMALS: regular rate, regular rhythm, S1 normal heart sound present, S2 normal heart sound present, No gallops present (Cardio), No murmurs present (Cardio), No rub (Cardio) and Peripheral pulses 2+ throughout RATE: regular rate RHYTHM: regular rhythm HEART SOUNDS: S1 normal heart sound present and S2 normal heart sound present PERIPHERAL PULSES: Peripheral pulses 2+ throughout GI: COMMON NORMALS: Normal to inspection, nondistended, normoactive bowel sounds present, Soft to palpation, non-tender, No hepatosplenomegaly present and no masses AUSCULTATION: Yes normoactive bowel sounds PALPATION: Yes Soft to palpation and Yes No hepatosplenomegaly present RECTAL EXAM: deferred Extremity: COMMON NORMALS: no clubbing, cyanosis or edema and no pedal edema Neuro: COMMON NORMALS: patient oriented x3 Urinary Catheter Management: Rubio: Cath Placed During This Visit: yes Reason for Continuing Indwelling Catheter: Accurate Measurement of Urinary Output in Critically Ill Patients Urinary Catheter Date of Insertion: 11/22/21 Urinary Catheter Time of Insertion: 14:33 Data : 11/27/21 06:02 11/27/21 06:02 Micro: Microbiology 11/26/21 11:21 Gram Stain - Final Sputum - Expectorated Sputum Sputum Culture - Preliminary A&P Assessment and plan (1) Cardiac arrest with successful resuscitation: Ice pad, Lidocaine patch. Will avoid ibuprofen, NSAIDs, oxy as patient allergic. Status: Acute (2) Cardiac arrest with ventricular fibrillation: Continue with amiodarone 200 mg twice daily. Underwent CAG yesterday and PCI to RCA. Will need ICD for secondary prevention. Keep potassium around 4, magnesium over 2. Will monitor QTC. Troponin slightly elevated most likely post CPR. Switch to PPx dose of lovenox. Continue with aspirin 81 mg daily, Atorvastatin 40 mg oral daily. A1c 5.6. Status: Acute (3) CAD (coronary artery disease): Post PCI to RCA. C/w ASA, plavix, statin. Chest pain free. ECHO appreciated. Status: Acute (4) CHF (congestive heart failure): Echocardiogram shows an EF of 30% with global LV hypokinesia and dilatation, normal RV size, mild to trace mitral regurgitation, moderate aortic valve regurgitation, trace TR. Congestive heart failure systolic type. Strict input for charting, daily weights. Gentle IV diuresis. IV lasix 40 daily. Start on metoprolol 25 mg BID. Will initiate heart failure medications including LOBO inhibitor, spironolactone. Status: Acute (5) Chronic obstructive pulmonary disease: Switch DuoNeb to Ipratropium and xoponex QID, budesonide twice daily. Wean off Solu-Medrol to 40 mg IV daily. Post CPR there is a concern for possible aspiration pneumonia versus pneumonitis. Continue with Zosyn. MRSA swab negative, sputum culture awaited. Incentive spirometry. Status: Chronic Qualifiers: COPD type: COPD with acute exacerbation Qualified Code(s): J44.1 - Chronic obstructive pulmonary disease with (acute) exacerbation (6) Acute kidney injury: Most likely secondary to aggressive diuresis and slightly vascular depleted, Lasix na?ve patient. Creatinine improving. Creat 1.3 today. Medical reconciliation done for nephrotoxic drugs. Hold off on LOBO inhibitor for now. We will restart diuresis at a lower rate at 40 mg daily today. Monitor BMP daily. Status: Acute (7) Aspiration pneumonitis: Status: Acute (8) Hypertension: Goal blood pressure less than 140/90 mmHg. Start on metoprolol today. Will add ACEi as per creatinine accordingly. Status: Chronic (9) Nicotine dependence, cigarettes, with other nicotine-induced disorders: ~60 pack year history, does express interest in wanting to quit, has tried many times unsuccessfully really making it more than a couple of days Nicotine patch if needed Encouraged repeated attempts at smoking cessation Status: Chronic Plan 76-year-old female with past medical history of COPD hypertension , chronic smoker , initially brought in with chief complaint of shortness of breath, hospital course has been complicated, found to have new diagnosis of Heart failure with reduced ejection fraction, coronary artery disease s/p PCI to RCA, s/p V. fib arrest during the hospital stay. Assessment: Status post V. fib arrest: With 1 round of CPR, 1 1 dose of epi and one-time defibrillation, with achievement of ROSC. Post ROSC patient was in A. fib, for which was started on amiodarone drip, currently on p.o. amiodarone. Will need ICD placement #coronary artery disease: s/p PCI to RCA Continue aspirin , Plavix , statin, beta-virgilio # Heart failure with reduced ejection fraction : Continue Lasix 40 mg IV twice daily Continue beta-virgilio Intake output charting k>4,mg>2 We will initiate low-dose lisinopril once renal function is optimal She will also need to be on Aldactone #COPD: Continue duo nebs Prednisone 40 daily Supplemental oxygen as needed #Hypertension: Full code. Cardiac diet. Lovenox for DVTprophylaxis. Protonix for PUD prophylaxis. Attestations Medical Necessity Statement*: Patient is still in hospital for management of above defined problems. Time Spent in Patient Care: Greater than 35 minutes (>than 50% of time spent in counselling and/or direct pt care on unit). Coding Level of Care Code Acute Supplemental Manager for [facility] Fwd Exam Comprehensive Diagnoses Cardiac arrest with successful resuscitation I46.9 Cardiac arrest with ventricular fibrillation I46.9; I49.01 CAD (coronary artery disease) I25.10 CHF (congestive heart failure) I50.9 Chronic obstructive pulmonary disease J44.1 COPD type: COPD with acute exacerbation Acute kidney injury N17.9 Aspiration pneumonitis J69.0 Hypertension I10 Nicotine dependence, cigarettes, with other nicotine-induced disorders F17.218
--- NOTE | 2021-11-27 11:12 | P.PN_ITS ---
Subjective Subjective: Patient is doing well. No complaints of chest pain. Still short of breath Vitals/I&O/Wt Last Vital Signs Temp 98.0 F 11/26/21 23:30 Pulse 85 11/27/21 08:07 Resp 22 H 11/27/21 08:07 BP 164/60 11/27/21 08:00 Pulse Ox 97 11/27/21 08:07 11/26/21 11/27/21 11/27/21 22:59 06:59 14:59 Intake Total 400 / 600 300 / 900 300 / 300 Output Total 1700 / 2300 800 / 3100 Balance -1300 / -1700 -500 / -2200 300 / 300 Weight last 48 hrs Weight 196 lb Physical Exam Narrative: CONSTITUTIONAL: Alert and oriented x 3 HEENT: Normocephalic, atraumatic.[] RESPIRATORY:? Has bilateral mild crackles CARDIOVASCULAR: S1, S2, normal rate and rhythm GI: Soft EXTREMITIES: Has 1+ edema Urinary Catheter Management: Rubio: Cath Placed During This Visit: yes Reason for Continuing Indwelling Catheter: Accurate Measurement of Urinary Output in Critically Ill Patients Urinary Catheter Date of Insertion: 11/22/21 Urinary Catheter Time of Insertion: 14:33 Data : 11/27/21 06:02 11/27/21 06:02 Micro: Microbiology 11/26/21 11:21 Gram Stain - Final Sputum - Expectorated Sputum Sputum Culture - Preliminary A&P Assessment and plan (1) Aspiration pneumonitis: Status: Acute (2) Acute kidney injury: Status: Acute (3) Cardiac arrest with ventricular fibrillation: Status: Acute (4) Chronic obstructive pulmonary disease: Status: Chronic Qualifiers: COPD type: COPD with acute exacerbation Qualified Code(s): J44.1 - Chronic obstructive pulmonary disease with (acute) exacerbation (5) CHF (congestive heart failure): Status: Acute (6) Hypertension: Status: Chronic Plan Patient had ventricular fibrillation requiring defibrillation with shock x1. She again had nonsustained VT. She has new onset congestive heart failure. No known coronary artery disease history. Coronary angiogram showed severe distal RCA stenosis that underwent successful revascularization with RATNA X1 . Renal function is improving and patient is diuresing well Continue aspirin and plavix for atleast 1 year Lasix uptitrated to 40mg BID ECHO shows EF of 30%. We will consult Dr Barrett for ICD placement. She has non-ischemic cardiomyopathy as only had distal RCA stenosis that does not explain her LVEF of 30%. As she had ventricular fibrillation with significant cardiomyopathy,will recommend ICD placement Thank you for involving us with care of this patient. We will continue to follow Attestations Medical Necessity Statement*: Care expected to cross 2 midnights. 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
--- NOTE | 2021-11-27 11:15 | PC.SOCIAL ---
IMM Update Pg. 2 of IMM updated and reviewed with patient, who verbalized understanding. Copy provided.
[2021-11-27] MEDS: enoxaparin 40 mg/0.4 mL Syringe SUBCUT (13:31)
[2021-11-27] MEDS: atorvastatin 40 mg Tablet PO (20:05)
--- NOTE | 2021-11-27 20:34 | PC.NURSE ---
2034 Pt taken to room 259-1 Report given LEONARD Avalos transported by wheelchair on O2@ 4lnc Pt alert and oriented family at bedside notified room transfer
[2021-11-28] VITALS (22 sets, daily range): BP systolic 121–148; BP diastolic 66–72; PULSE 61–87; RESP 13–33; TEMP 36.5–36.9; O2SAT 90–97
--- NOTE | 2021-11-28 01:43 | XRR_ITS ---
PROCEDURE INFORMATION: Exam: XR Chest Exam date and time: 11/28/2021 1:59 AM Age: 76 years old Clinical indication: Dyspnea TECHNIQUE: Imaging protocol: XR of the chest. Views: 1 view. COMPARISON: CR (CHEST, ) 11/25/2021 8:10 AM FINDINGS: Tubes, catheters and devices: EKG monitoring leads overlie the thoracic wall. Lungs: There is no evidence of focal pulmonary consolidation. Pleural spaces: Interval worsening of bilateral pleural effusions. No pneumothorax. Heart/Mediastinum: Stable cardiomegaly. Minimal cardiopulmonary congestion, improved from the comparison study. Bones/joints: No acute fracture noted. XR/XR chest 1V portable [id number] IMPRESSION: 1. Stable cardiomegaly. 2. Interval improvement in cardiopulmonary congestion. 3. Worsening bilateral pleural effusions and underlying atelectatic changes and/or in the appropriate clinical setting, pneumonia.
[2021-11-28] MEDS: LORazepam 2 mg/mL INJ 1 mL 0.5 MG IVP (02:08)
[2021-11-28 02:23] LABS: Basophils % 0.1 %; Eosinophils # 0.1 10^3/uL (0.0-0.8); Eosinophils % 0.6 %; Hematocrit 39.1 % (37.0-47.0); Hemoglobin 12.4 g/dL (11.5-15.3); Lymphocytes # 0.7 10^3/uL (0.8-4.8); Lymphocytes % 6.1 %; Mean Corpuscular HGB Conc 31.7 g/dL (30.0-36.0); Mean Corpuscular Hemoglobin 29.5 pg (28.0-34.0); Mean Corpuscular Volume 92.9 fl (81-99); Mean Platelet Volume 11.2 fL (7.4-10.4); Monocytes # 0.7 10^3/uL (0.2-0.9); Monocytes % 6.9 %; Neutrophils # 9.19 10^3/uL (1.8-7.7); Neutrophils % 85.7 %; Nucleated Red Blood Cells % 0 %; Platelet Count 167 10^3/cmm (130-400); Red Blood Count 4.21 10^6/uL (4.1-5.3); Red Cell Distribution Width 15.4 % (12.1-15.1); White Blood Count 10.7 10^3/uL (4.0-10.0)
--- NOTE | 2021-11-28 02:46 | PC.NURSE ---
At 0110, this nurse was performing hourly rounds and this patient was noted to have increased work of breathing using abdominal and clavicle accessory muscles use. Pt stated she was short of breath and c/o diaphoresis. Pt was on 4L NC and it was turned to 6L. Respiratory was called and it was decided to place patient on Bipap. Pt placed on Bipap at 0125 with FiO2 40%. Dr. Pascual was paged at 0128 to discuss current patient condition. Shortly after telephone conversation, Dr. Pascual was at bedside to assess pt. Orders were placed and completed. Pt was given 0.5 mg ativan IVP d/t pt c/o anxiety with BiPap. Pt has been consistently rounded on and is resting comfortably.
[2021-11-28 02:51] LABS: Anion Gap 13.6 (5-19); Blood Urea Nitrogen 30 mg/dL (8-23); Calcium 8.3 mg/dL (8.5-10.5); Carbon Dioxide 33 mmol/L (22-29); Chloride 97 mmol/L (98-107); Glucose 101 mg/dL (65-115); NT Pro B Type Natriuretic Pept 18316 pg/mL (0-450); Osmolality Calculated 296 mOsm/kg (285-295); Potassium 3.6 mmol/L (3.5-5.1); Sodium 140 mmol/L (136-145)
[2021-11-28 02:53] LABS: Troponin T (5th) Once 103 ng/L (0-10)
[2021-11-28 03:29] LABS: ABG PCO2 53.8 mmHg (35-45); ABG PH Result 7.47 (7.35-7.45); BIPAP 16/6; Base Excess ABG 13.6 mmol/L (-2.0-2.0); HCO3 ABG 39.5 mmol/L (22-26); Oxygen Device BIPAP; Oxygen Saturation ABG 94; PO2 ABG 64.8 mmHg (80.0-100.0); Potassium Level - ABG 3.5 mmol/L (3.5-5.0)
[2021-11-28 03:30] LABS: Arterial Blood Gas Hematocrit 39.1 % (37-47); Blood Gas Sample Type ARTERIAL; Carboxyhemoglobin 1.5 %THgb (0.4-20.1); Ionized Calcium Level - ABG 1.2 mmol/L (1.1-1.4); Methemoglobin 0.9 % (0.4-1.5); Total Hemoglobin 12.8 g/dL (12-16)
--- NOTE | 2021-11-28 05:54 | ECG_ITS ---
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 Measurements Intervals Gabbs Rate: 68 P: 30 DE: 180 QRS: -29 QRSD: 101 T: -57 QT: 432 QTc: 461 Interpretive Statements SINUS RHYTHM MODERATE VOLTAGE CRITERIA FOR LVH, CONSIDER NORMAL VARIANT [MEETS CRITERIA IN ONE OF: R(aVL), S(V1), R(V5), R(V5/V6)+S(V1)] POSSIBLE ANTERIOR MYOCARDIAL INFARCTION , OF INDETERMINATE AGE [30 ms Q WAVE IN V3/V4, OR R < 0.2 mV IN V4] Compared to ECG 11/24/2021 04:04:59 Myocardial infarct finding now present Ventricular premature complex(es) no longer present T-wave abnormality no longer present Possible ischemia no longer present Electronically Signed On 11-28-2021 23:23:35 CDT by Daisy Campoverde M.D. [id number]
[2021-11-28] MEDS: budesonide 0.5 mg/2 mL Neb INHALATION ×2 (07:42→20:15)
[2021-11-28] MEDS: levalbuterol 1.25 mg/3 mL Neb INHALATION ×4 (07:42→20:15)
[2021-11-28] MEDS: ipratropium 0.5 mg/2.5 mL Neb INHALATION ×4 (07:42→20:15)
--- NOTE | 2021-11-28 07:56 | US_ITS ---
WS: [id number] Ultrasound chest. HISTORY: Evaluate pleural effusions. Small bilateral pleural effusions are present. These are small effusions and there is atelectatic rosaline g within the effusions. Largest diameter of each effusion is less than 2 cm. US/US chest [id number] IMPRESSION: Small bilateral pleural effusions with atelectatic mobile lung within the fluid .
--- NOTE | 2021-11-28 08:00 | PM.PN ---
Subjective Subjective: Patient feels short of breath Vitals/I&O/Wt Last Vital Signs Temp 98.4 F 11/28/21 03:57 Pulse 69 11/28/21 07:46 Resp 24 H 11/28/21 07:43 BP 138/69 11/28/21 03:57 Pulse Ox 90 11/28/21 07:46 11/27/21 11/28/21 11/28/21 22:59 06:59 14:59 Intake Total 220 / 820 Output Total 1400 / 1400 650 / 2050 Balance -1180 / -580 -650 / -1230 Weight last 48 hrs Weight 183 lb 9.6 oz Physical Exam Narrative: CONSTITUTIONAL: Alert and oriented x 3 HEENT: Normocephalic, atraumatic.[] RESPIRATORY:? Has bilateral mild crackles CARDIOVASCULAR: S1, S2, normal rate and rhythm GI: Soft EXTREMITIES: Has 1+ edema Urinary Catheter Management: Rubio: Cath Placed During This Visit: yes Reason for Continuing Indwelling Catheter: Accurate Measurement of Urinary Output in Critically Ill Patients Urinary Catheter Date of Insertion: 11/22/21 Urinary Catheter Time of Insertion: 14:33 Data : 11/29/21 04:43 11/29/21 04:43 Micro: Microbiology 11/26/21 11:21 Gram Stain - Final Sputum - Expectorated Sputum Sputum Culture - Preliminary A&P Assessment and plan (1) Aspiration pneumonitis: Status: Acute (2) Acute kidney injury: Status: Acute (3) Cardiac arrest with ventricular fibrillation: Status: Acute (4) Chronic obstructive pulmonary disease: Status: Chronic Qualifiers: COPD type: COPD with acute exacerbation Qualified Code(s): J44.1 - Chronic obstructive pulmonary disease with (acute) exacerbation (5) CHF (congestive heart failure): Status: Acute (6) Hypertension: Status: Chronic Plan Patient had ventricular fibrillation requiring defibrillation with shock x1. She again had nonsustained VT. She has new onset congestive heart failure. No known coronary artery disease history. Coronary angiogram showed severe distal RCA stenosis that underwent successful revascularization with RATAN X1 . Renal function is improving and patient is diuresing well Continue aspirin and plavix for atleast 1 year Continue Lasix ECHO shows EF of 30%. Plan for ICD placement tomorrow with Dr Barrett Thank you for involving us with care of this patient. We will continue to follow Attestations Medical Necessity Statement*: Care expected to cross 2 midnights. 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
[2021-11-28] MEDS: ferrous gluconate 324 mg Tablet PO ×2 (08:50→17:31)
[2021-11-28] MEDS: amiodarone 200 mg Tablet PO ×2 (08:50→17:31)
[2021-11-28] MEDS: magnesium oxide 400 mg tablet PO ×2 (08:50→17:31)
[2021-11-28] MEDS: nicotine 21 mg Patch 1 PATCH TRANSDERMA (08:51)
[2021-11-28] MEDS: lidocaine 5% Patch 1 PATCH TOPICAL ×2 (08:51→20:50)
[2021-11-28] MEDS: aspirin 81 mg EC Tablet PO (08:51)
[2021-11-28] MEDS: docusate sodium 100 mg Capsule PO ×2 (08:51→17:31)
[2021-11-28] MEDS: metoprolol tartrate 25 mg Tablet PO ×2 (08:51→20:49)
[2021-11-28] MEDS: pantoprazole DR 40 mg Tablet PO (08:51)
[2021-11-28] MEDS: FUROsemide 10 mg/mL SDV 4mL 40 MG IVP (08:51)
[2021-11-28] MEDS: clopidogrel 75 mg Tablet PO (08:51)
[2021-11-28] MEDS: cefTRIAXone 1,000 MG in sodium chloride 0.9% (plus) 50 ML 100 MG IV (10:31)
[2021-11-28] MEDS: enoxaparin 40 mg/0.4 mL Syringe SUBCUT (11:10)
[2021-11-28] MEDS: sucralfate 1 gm Tablet PO ×3 (11:10→20:49)
--- NOTE | 2021-11-28 13:29 | P.PN_ITS ---
Subjective Subjective: Patient was seen and examined, had a rough night yesterday, requiring BiPAP, as she was desaturating, EKG: Failed to show any acute ST-T wave change, x-ray chest: Shows bilateral pleural effusion. Ultrasound chest: Has shown a small bilateral pleural effusion. ABG: pH 7.47, PCO2 53, PO2 64 40% FiO2 Medications: Medication Review Details: Generic Name Dose Route Start Last Admin Trade Name Freq PRN Reason Stop Dose Admin Acetaminophen 650 mg 11/22/21 17:04 11/26/21 04:15 Acetaminophen 32 5 Mg Tablet PO 650 mg Q6H PRN Administration Mild/Mod Pain Or Temp >/= 101 Albuterol/Ipratrop ium 3 ml 11/22/21 17:04 11/25/21 06:32 Ipratropium-Albu terol 3 Ml Neb INHALATION 3 ml Q6H PRN Administration SHORTNESS OF MARK TH Alprazolam 0.25 mg 11/24/21 16:53 11/26/21 06:44 Alprazolam 0.5 M g Tablet PO 0.25 mg TID PRN Administration ANXIETY Amiodarone HCl 200 mg 11/24/21 18:00 11/27/21 08:28 Amiodarone 200 M g Tablet PO 200 mg BID JOHN Administration Aspirin 81 mg 11/23/21 09:00 11/27/21 08:28 Aspirin 81 Mg Ec Tablet PO 81 mg DAILY JOHN Administration Atorvastatin Calci um 40 mg 11/24/21 21:00 11/26/21 20:17 Atorvastatin 40 Mg Tablet PO 40 mg BEDTIME JOHN Administration Budesonide 0.5 mg 11/22/21 20:00 11/27/21 08:02 Budesonide 0.5 M g/2 Ml Neb INHALATION 0.5 mg BID.RESPIRATORY S CH Administration Clopidogrel Bisulf ate 75 mg 11/25/21 09:45 11/27/21 08:29 Clopidogrel 75 M g Tablet PO 75 mg DAILY JOHN Administration Docusate Sodium 100 mg 11/22/21 18:00 11/27/21 08:27 Docusate Sodium 100 Mg Capsule PO 100 mg BID JOHN Administration Enoxaparin Sodium 40 mg 11/25/21 12:00 11/26/21 13:08 Enoxaparin 40 Mg /0.4 Ml Syringe SUBCUT 40 mg Q24H JOHN Administration Ferrous Gluconate 324 mg 11/23/21 18:00 11/27/21 08:28 Ferrous Gluconat e 324 Mg Tablet PO 324 mg BIDWM JOHN Administration Fluticasone Propio meliza 1 spray 11/25/21 00:11 11/25/21 00:52 Fluticasone [place] 16gm Btl NASAL 1 spray BID PRN Administration NASAL CONGESTION Furosemide 40 mg 11/26/21 18:00 11/27/21 08:29 Furosemide 10 Mg /Ml Sdv 4ml IVP 40 mg BID JOHN Administration Piperacillin Sod/T azobactam 100 mls @ 25 mls/ hr 11/24/21 20:15 11/27/21 03:37 Sod 3.375 gm/ So dium Chloride IV 25 mls/hr Q8H JOHN Administration Ipratropium Bromid e 0.5 mg 11/25/21 12:00 11/27/21 08:02 Ipratropium 0.5 Mg/2.5 Ml Neb INHALATION 0.5 mg QID.RESPIRATORY S CH Administration Levalbuterol HCl 1.25 mg 11/25/21 12:00 11/27/21 08:02 Levalbuterol 1.2 5 Mg/3 Ml Neb INHALATION 1.25 mg QID.RESPIRATORY S CH Administration Lidocaine 1 patch 11/25/21 13:45 11/27/21 08:29 Lidocaine 5% Pat ch TOPICAL 1 patch [id number] JOHN Administration Magnesium Oxide 400 mg 11/25/21 18:00 11/27/21 08:28 Magnesium Oxide 400 Mg Tablet PO 400 mg BID JOHN Administration Metoprolol Tartrat e 25 mg 11/25/21 11:30 11/27/21 08:29 Metoprolol Tartr ate 25 Mg Tablet PO 25 mg BID@0900,2100 JOHN Administration Morphine Sulfate 1 mg 11/26/21 10:16 11/26/21 16:25 Morphine 4 Mg/Ml Sdv 1 Ml IVP 1 mg Q4H PRN Administration SEVERE PAIN Nicotine 1 patch 11/26/21 09:00 11/27/21 08:29 Nicotine 21 Mg P atch TRANSDERMA 1 patch DAILY JOHN Administration Pantoprazole Sodiu m 40 mg 11/23/21 09:00 11/27/21 08:[address] 40 Mg Tablet PO 40 mg DAILY JOHN Administration Prednisone 40 mg 11/27/21 09:00 11/27/21 08:29 Prednisone 20 Mg Tablet PO 40 mg DAILY JOHN Administration Sucralfate 1 gm 11/25/21 11:00 11/27/21 10:56 Sucralfate 1 Gm Tablet PO 1 gm AC&BEDTIME JOHN Administration Tramadol HCl 50 mg 11/22/21 17:04 11/26/21 00:34 Tramadol 50 Mg T ablet PO 50 mg Q6H PRN Administration MODERATE TO SEVER E PAIN Vitals/I&O/Wt Last Vital Signs Temp 98.4 F 11/28/21 12:00 Pulse 71 11/28/21 12:00 Resp 13 11/28/21 12:00 BP 121/70 11/28/21 12:00 Pulse Ox 93 11/28/21 12:00 11/27/21 11/28/21 11/28/21 22:59 06:59 14:59 Intake Total 220 / 820 110 / 110 Output Total 1400 / 1400 650 / 2050 Balance -1180 / -580 -650 / -1230 110 / 110 Weight last 48 hrs Weight 83.28 kg Physical Exam Const: COMMON NORMALS: patient oriented x3 HENMT: COMMON NORMALS: normocephalic and atraumatic HEAD & SCALP: normocephalic and atraumatic Chest: CHEST: Yes Symmetrical chest wall rise Resp: COMMON NORMALS: normal respiratory effort, No retractions and No use of accessory muscles EFFORT & INSPECTION: Yes symmetric chest movement OTHER: Diminished air entry bilaterally predominantly at bases. Cardio: COMMON NORMALS: regular rate, regular rhythm, S1 normal heart sound present, S2 normal heart sound present, No gallops present (Cardio), No murmurs present (Cardio), No rub (Cardio) and Peripheral pulses 2+ throughout RATE: regular rate RHYTHM: regular rhythm HEART SOUNDS: S1 normal heart sound present and S2 normal heart sound present PERIPHERAL PULSES: Peripheral pulses 2+ throughout GI: COMMON NORMALS: Normal to inspection, nondistended, normoactive bowel sounds present, Soft to palpation, non-tender, No hepatosplenomegaly present and no masses AUSCULTATION: Yes normoactive bowel sounds PALPATION: Yes Soft to palpation and Yes No hepatosplenomegaly present RECTAL EXAM: deferred Extremity: COMMON NORMALS: no clubbing, cyanosis or edema and no pedal edema Neuro: COMMON NORMALS: patient oriented x3 Urinary Catheter Management: Rubio: Cath Placed During This Visit: yes Reason for Continuing Indwelling Catheter: Accurate Measurement of Urinary Output in Critically Ill Patients Urinary Catheter Date of Insertion: 11/22/21 Urinary Catheter Time of Insertion: 14:33 Data : 11/28/21 02:12 11/28/21 02:12 Micro: Microbiology 11/26/21 11:21 Gram Stain - Final Sputum - Expectorated Sputum Sputum Culture - Final A&P Assessment and plan (1) Cardiac arrest with successful resuscitation: Ice pad, Lidocaine patch. Will avoid ibuprofen, NSAIDs, oxy as patient allergic. Status: Acute (2) Cardiac arrest with ventricular fibrillation: Continue with amiodarone 200 mg twice daily. Underwent CAG yesterday and PCI to RCA. Will need ICD for secondary prevention. Keep potassium around 4, magnesium over 2. Will monitor QTC. Troponin slightly elevated most likely post CPR. Switch to PPx dose of lovenox. Continue with aspirin 81 mg daily, Atorvastatin 40 mg oral daily. A1c 5.6. Status: Acute (3) CAD (coronary artery disease): Post PCI to RCA. C/w ASA, plavix, statin. Chest pain free. ECHO appreciated. Status: Acute (4) CHF (congestive heart failure): Echocardiogram shows an EF of 30% with global LV hypokinesia and dilatation, normal RV size, mild to trace mitral regurgitation, moderate aortic valve regurgitation, trace TR. Congestive heart failure systolic type. Strict input for charting, daily weights. Gentle IV diuresis. IV lasix 40 daily. Start on metoprolol 25 mg BID. Will initiate heart failure medications including LOBO inhibitor, spironolactone. Status: Acute (5) Chronic obstructive pulmonary disease: Switch DuoNeb to Ipratropium and xoponex QID, budesonide twice daily. Wean off Solu-Medrol to 40 mg IV daily. Post CPR there is a concern for possible aspiration pneumonia versus pneumoni tis. Continue with Zosyn. MRSA swab negative, sputum culture awaited. Incentive spirometry. Status: Chronic Qualifiers: COPD type: COPD with acute exacerbation Qualified Code(s): J44.1 - Chronic obstructive pulmonary disease with (acute) exacerbation (6) Acute kidney injury: Most likely secondary to aggressive diuresis and slightly vascular depleted, Lasix na?ve patient. Creatinine improving. Creat 1.3 today. Medical reconciliation done for nephrotoxic drugs. Hold off on LOBO inhibitor for now. We will restart diuresis at a lower rate at 40 mg daily today. Monitor BMP daily. Status: Acute (7) Aspiration pneumonitis: Status: Acute (8) Hypertension: Goal blood pressure less than 140/90 mmHg. Start on metoprolol today. Will add ACEi as per creatinine accordingly. Status: Chronic (9) Nicotine dependence, cigarettes, with other nicotine-induced disorders: ~60 pack year history, does express interest in wanting to quit, has tried many times unsuccessfully really making it more than a couple of days Nicotine patch if needed Encouraged repeated attempts at smoking cessation Status: Chronic Plan 76-year-old female with past medical history of COPD hypertension , chronic smoker , initially brought in with chief complaint of shortness of breath, hospital course has been complicated, found to have new diagnosis of Heart failure with reduced ejection fraction, coronary artery disease s/p PCI to RCA, s/p V. fib arrest during the hospital stay. Assessment: Status post V. fib arrest: 1 round of CPR, 1 epi and one-time defibrillation, achievement of ROSC. Post ROSC patient was in A. fib, for which was started on amiodarone drip, currently on p.o. amiodarone. ICD placement #coronary artery disease: s/p PCI to RCA Continue aspirin , Plavix , statin, beta-virgilio # Heart failure with reduced ejection fraction : Continue Lasix 40 mg IV twice daily Continue beta-virgilio Intake output charting k>4,mg>2 We will initiate low-dose lisinopril once renal function is optimal She will also need to be on spironlactone #COPD: Continue duo nebs Solu-Medrol 60 IV daily Supplemental oxygen as needed #Bilateral small pleural effusion: Likely secondary to decompensated heart failure, less likely pneumonia. Ultrasound chest: Small bilateral pleural effusions with atelectatic mobile lung within the fluid She was on Zosyn initially for possible aspiration pneumonia during the code Antibiotic has been narrowed down to ceftriaxone. #Hypertension: Full code. Cardiac diet. Lovenox for DVTprophylaxis. Protonix for PUD prophylaxis. Attestations Medical Necessity Statement*: Patient is to be in hospital for management of heart failure awaiting, ICD placement. Time Spent in Patient Care: Greater than 35 minutes (>than 50% of time spent in counselling and/or direct pt care on unit) . Coding Level of Care Code Acute [employer] Consultant for [employer] Fwd Exam Detailed Diagnoses Cardiac arrest with successful resuscitation I46.9 Cardiac arrest with ventricular fibrillation I46.9; I49.01 CAD (coronary artery disease) I25.10 CHF (congestive heart failure) I50.9 Chronic obstructive pulmonary disease J44.1 COPD type: COPD with acute exacerbation Acute kidney injury N17.9 Aspiration pneumonitis J69.0 Hypertension I10 Nicotine dependence, cigarettes, with other nicotine-induced disorders F17.218
[2021-11-28] MEDS: chlorhexidine gluconate 4% Btl 118 mL 1 APPLIC TOPICAL (17:57)
[2021-11-28] MEDS: atorvastatin 40 mg Tablet PO (20:49)
[2021-11-29] VITALS (26 sets, daily range): BP systolic 122–180; BP diastolic 59–111; PULSE 62–82; RESP 16–24; TEMP 36.2–37.1; O2SAT 89–100
--- NOTE | 2021-11-29 | SCC_ITS ---
Procedure done: Automatic implantable cardiac defibrillator implantation 94.7 seconds of fluoroscopic guidance, for a cumulative dose of 11.41 mGy, was provided to Dr. Barrett by the radiology department. C-arm images of the chest were saved for the patient's permanent record. [facility]
--- NOTE | 2021-11-29 00:42 | PHA.FALL ---
A Pharmacy Consult Was Conducted For Surekha Villalobos Due To: Cummings Fall Scale Risk Level: High Fall Risk On 11/28/21 20:00 And A Medication Fall Risk Score Greater Than 10. The Recommendations Are As Follows:This patient is on the following sedatives: Alprazolam, Morphine, Narcan, Temazepam, Tramadol. It is recommended that continued need for each of these medications be reviewed frequently and dosages reduced or discontinued as possible. The time between dosages should be extended as long as possible and particular attention paid to patient's movements particularly upon arising from seated or lying position. Aniyah Brown
[2021-11-29] MEDS: chlorhexidine gluconate 4% Btl 118 mL 1 APPLIC TOPICAL (04:36)
[2021-11-29 04:57] LABS: Hemoglobin 12.7 g/dL (11.5-15.3); Lymphocytes # 0.3 10^3/uL (0.8-4.8); Lymphocytes % 2.9 %; Mean Corpuscular HGB Conc 30.2 g/dL (30.0-36.0); Mean Corpuscular Hemoglobin 29.1 pg (28.0-34.0); Mean Corpuscular Volume 96.3 fl (81-99); Mean Platelet Volume 11.4 fL (7.4-10.4); Monocytes # 0.4 10^3/uL (0.2-0.9); Monocytes % 3.8 %; Neutrophils # 10.72 10^3/uL (1.8-7.7); Nucleated Red Blood Cells % 0 %; Platelet Count 175 10^3/cmm (130-400); Red Blood Count 4.36 10^6/uL (4.1-5.3); Red Cell Distribution Width 15.5 % (12.1-15.1); White Blood Count 11.5 10^3/uL (4.0-10.0)
[2021-11-29 05:21] LABS: Blood Urea Nitrogen 32 mg/dL (8-23); Carbon Dioxide 32 mmol/L (22-29); Chloride 99 mmol/L (98-107); Glucose 124 mg/dL (65-115); Magnesium 2.1 mg/dL (1.7-2.3); Osmolality Calculated 296 mOsm/kg (285-295); Sodium 139 mmol/L (136-145)
[2021-11-29 05:24] LABS: Anion Gap 12.3 (5-19); Potassium 4.3 mmol/L (3.5-5.1)
[2021-11-29] MEDS: FUROsemide 10 mg/mL SDV 4mL 40 MG IVP (06:10)
--- NOTE | 2021-11-29 06:13 | P.CONIM_ITS ---
Providers/Reason For Consult Consulting Physician/Specialty*: Dr. Barrett/cardiothoracic surgery Reason for Consult*: Severe cardiomyopathy Requesting Physician: Dr. Crawford Attending Physician: Jamir Chowdhury MD Primary Care Provider: Kelley Jimenez MD History of Present Illness History of Present Illness Surekha Villalobos is a 76 year old female whom I been consulted on for AICD implantation due to severe cardiomyopathy. She originally presented with increasing fatigue, increasing dyspnea with exertion, and peripheral edema. Eloy g history of tobacco use. Originally felt to have congestive heart failure with echocardiogram performed on November 22 revealin. Mildly dilated left ventricular cavity size. Moderately ?decreased left ventricular systolic function. Left ventricular ?ejection fraction is estimated at 30 %. Global left ventricular ?hypokinesis. Abnormal septal motion. ?2. Normal right ventricular size and systolic function. ?3. Aortic valve sclerosis with no stenosis. Moderate aortic ?valve regurgitation. ?4.? No prior similar studies to compare. Patient suffered a cardiac arrest with ventricular fibrillation requiring CPR and electrical defibrillation. The she then had nonsustained V. tach which has resolved. Subsequent cardiac catheterization revealed a distal RCA lesion which was treated with drug-eluting stent by Dr. Crawford however, it is not thought that this lesion could account for her severe cardiac dysfunction. AICD has been recommended as a prophylaxis from further malignant arrhythmias. Patient is quite dyspneic on rounds this morning while sitting upright in the bed. Upon review of her most recent x-ray from yesterday as well as small bilateral effusions by ultrasound, I am not certain that she could be placed in the supine position without oral intubation. Given that, she may require prolonged intubation and ICU bed availability. We will need to assess this this morning to determine whether this procedure can be safely done at this time. Review of Systems Const: Reports: fatigue and malaise; Denies: fever(s) or chills ENMT: Denies: throat pain Card: Reports: chest pain, swelling of feet/ankles and dyspnea on exertion Resp: Reports: dyspnea and wheezing GI: Denies: abdominal pain, nausea or vomiting Musc: Reports: back pain Neuro: Denies: headache(s), numbness in extremities or weakness in extremities Psych: Denies: anxiety or depression Medications/Allergies Home Medications Medication Instructions Recorded Confirmed Last Taken Type calcium carbonate 600 mg calcium 1,200 mg PO BEDTIME 11/03/21 11/22/21 Unknown History (1,500 mg) tablet (Calcium) cholecalciferol (vitamin D3) 50 50 mcg PO DAILY 11/03/21 11/22/21 Unknown History mcg (2,000 unit) capsule cinnamon bark 500 mg capsule 500 mg PO .EIGHT TIMES A DAY 11/03/21 11/22/21 Unknown History coenzyme Q10 100 mg capsule (Co 100 mg PO QAM 11/03/21 11/22/21 Unknown History Q-10) albuterol sulfate 90 mcg/actuation 1 inh INHALATION QID PRN #8.5 g 11/14/21 11/22/21 Unknown Rx aerosol inhaler (ProAir HFA) budesonide-formoterol HFA 160 2 puff INHALATION BID #10.2 g 11/14/21 11/22/21 Unknown Rx mcg-4.5 mcg/actuation aerosol inhaler (Symbicort) tiotropium bromide 1.25 2 puff INHALATION DAILY #4 g 11/14/21 11/22/21 Unknown Rx mcg/actuation mist for inhalation (Spiriva Respimat) Vitamin B-12 1 tab PO DAILY 11/22/21 11/22/21 Unknown History aspirin 325 mg tablet 325 mg PO DAILY 11/22/21 11/22/21 Unknown History ciaran (Zingiber officinalis) 550 550 mg PO DAILY 11/22/21 11/22/21 Unknown History mg capsule ginkgo biloba 1 tab PO DAILY 11/22/21 11/22/21 Unknown History green tea leaf extract (Green Tea) 1 cap PO DAILY 11/22/21 11/22/21 Unknown History multivitamin 1 tab PO DAILY 11/22/21 11/22/21 Unknown History niacin 1 tab PO QAM 11/22/21 11/22/21 Unknown History vitamin B complex 1 tab PO DAILY 11/22/21 11/22/21 Unknown History Allergies Allergy/AdvReac Type Severity Reaction Status Date / Time acetaminophen [From [place]] Allergy ALGY-Difficulty Verified 11/22/21 14:02 Breathing codeine Allergy ALGY-Difficulty Verified 11/22/21 14:02 Breathing hydrocodone [From [place]] Allergy ALGY-Difficulty Verified 11/22/21 14:02 Breathing Current Medications Generic Name Dose Route Start Last Admin Trade Name Freq PRN Reason Stop Dose Admin Acetaminophen 650 mg 11/22/21 17:04 11/26/21 04:15 Acetaminophen 325 Mg Tablet PO 650 mg Q6H PRN Administration Mild/Mod Pain Or Temp >/= 101 Albuterol/Ipratropium 3 ml 11/22/21 17:04 11/25/21 06:32 Ipratropium-Albuterol 3 Ml Neb INHALATION 3 ml Q6H PRN Administration SHORTNESS OF BREATH Alprazolam 0.25 mg 11/24/21 16:53 11/26/21 06:44 Alprazolam 0.5 Mg Tablet PO 0.25 mg TID PRN Administration ANXIETY Amiodarone HCl 200 mg 11/24/21 18:00 11/28/21 17:31 Amiodarone 200 Mg Tablet PO 200 mg BID JOHN Administration Aspirin 81 mg 11/23/21 09:00 11/28/21 08:51 Aspirin 81 Mg Ec Tablet PO 81 mg DAILY JOHN Administration Atorvastatin Calcium 40 mg 11/24/21 21:00 11/28/21 20:49 Atorvastatin 40 Mg Tablet PO 40 mg BEDTIME JOHN Administration Budesonide 0.5 mg 11/22/21 20:00 11/28/21 20:15 Budesonide 0.5 Mg/2 Ml Neb INHALATION 0.5 mg BID.RESPIRATORY JOHN Administration Chlorhexidine Gluconate 1 applic 11/28/21 18:00 11/29/21 04:36 Chlorhexidine Gluconate 4% Btl 118 Ml TOPICAL 1 applic BID JOHN Administration Docusate Sodium 100 mg 11/22/21 18:00 11/28/21 17:31 Docusate Sodium 100 Mg Capsule PO 100 mg BID JOHN Administration Ferrous Gluconate 324 mg 11/23/21 18:00 11/28/21 17:31 Ferrous Gluconate 324 Mg Tablet PO 324 mg BIDWM JOHN Administration Fluticasone Propionate 1 spray 11/25/21 00:11 11/25/21 00:52 Fluticasone Nasal [place] 16gm Btl NASAL 1 spray BID PRN Administration NASAL CONGESTION Furosemide 40 mg 11/29/21 07:00 11/29/21 06:10 Furosemide 10 Mg/Ml Sdv 4ml IVP 40 mg Q24H JOHN Administration Ceftriaxone Sodium 1,000 mg/ 50 mls @ 100 mls/hr 11/28/21 09:15 11/28/21 11:21 Sodium Chloride IV Infused Q24H JOHN Infusion Protocol Ipratropium Bruni 0.5 mg 11/25/21 12:00 11/28/21 20:15 Ipratropium 0.5 Mg/2.5 Ml Neb INHALATION 0.5 mg QID.RESPIRATORY JOHN Administration Levalbuterol HCl 1.25 mg 11/25/21 12:00 11/28/21 20:15 Levalbuterol 1.25 Mg/3 Ml Neb INHALATION 1.25 mg QID.RESPIRATORY JOHN Administration Lidocaine 1 patch 11/25/21 13:45 11/28/21 20:50 Lidocaine 5% Patch TOPICAL 1 patch [id number] JOHN Administration Magnesium Oxide 400 mg 11/25/21 18:00 11/28/21 17:31 Magnesium Oxide 400 Mg Tablet PO 400 mg BID JOHN Administration Methylprednisolone Sodium Succinate 60 mg 11/28/21 18:00 11/28/21 17:31 Methylprednisolone Sod Succ 125 Mg/2 Ml Inj IVP 60 mg DAILY@1800 JOHN Administration Metoprolol Tartrate 25 mg 11/25/21 11:30 11/28/21 20:49 Metoprolol Tartrate 25 Mg Tablet PO 25 mg BID@0900,2100 JOHN Administration Morphine Sulfate 1 mg 11/26/21 10:16 11/26/21 16:25 Morphine 4 Mg/Ml Sdv 1 Ml IVP 1 mg Q4H PRN Administration SEVERE PAIN Nicotine 1 patch 11/26/21 09:00 11/28/21 08:51 Nicotine 21 Mg Patch TRANSDERMA 1 patch DAILY JOHN Administration Pantoprazole Sodium 40 mg 11/23/21 09:00 11/28/21 08:[address] 40 Mg Tablet PO 40 mg DAILY JOHN Administration Sucralfate 1 gm 11/25/21 11:00 11/28/21 20:49 Sucralfate 1 Gm Tablet PO 1 gm AC&BEDTIME JOHN Administration Tramadol HCl 50 mg 11/22/21 17:04 11/26/21 00:34 Tramadol 50 Mg Tablet PO 50 mg Q6H PRN Administration MODERATE TO SEVERE PAIN PFSH Acute PFSH: Medical History Age related osteoporosis Cardiac arrest with successful resuscitation Cardiac arrest with ventricular fibrillation Chronic obstructive pulmonary disease History of rib fracture left 6, 7, 8 Hypertension Macular degeneration Nicotine dependence, cigarettes, with other nicotine-induced disorders Osteoarthritis Surgical History H/O total knee replacement right History of total hip replacement right History of tubal ligation Family History Mother CAD (coronary artery disease) in 70s from heart attack Father Cancer lung Social History Smoking and tobacco status: current every day smoker cigarettes [ Other cigarette details: Smoked since her teenage years (about 58 years)] Alcohol intake: never Substance/Drug Use: never Household members: none Number of children: 2 Vitals/I&O/Wt Last Vital Signs Temp 97.3 F L 11/29/21 04:00 Pulse 72 11/29/21 05:57 Resp 18 11/29/21 04:00 BP 140/66 11/29/21 04:00 Pulse Ox 95 11/29/21 04:00 11/28/21 11/28/21 11/29/21 14:59 22:59 06:59 Intake Total 350 / 350 840 / 1190 0 / 1190 Output Total 250 / 250 Balance 350 / 350 840 / 1190 -250 / 940 Weight last 48 hrs Weight 183 lb 9.6 oz Physical Exam Const: OTHER: Temporal wasting Neck/C-Spine: OTHER: JVD Resp: OTHER: Dyspneic with conversation. Bilateral basal crackles. Cardio: OTHER: Displaced PMI with systolic murmur Extremity: OTHER: Peripheral edema Urinary Catheter Management: Rubio: Cath Placed During This Visit: yes Reason for Continuing Indwelling Catheter: Accurate Measurement of Urinary Output in Critically Ill Patients Urinary Catheter Date of Insertion: 11/22/21 Urinary Catheter Time of Insertion: 14:33 Data : 11/29/21 04:43 11/29/21 04:43 Micro: Microbiology 11/26/21 11:21 Gram Stain - Final Sputum - Expectorated Sputum Sputum Culture - Final A&P Assessment and plan (1) Cardiomyopathy: 76-year-old female with marked cardiomegaly and severe cardiomyopathy with echocardiogram from November 22 describing ejection fraction of 30%. I am not certain at this time that she has fully compensated from her recent events and I am concerned that positioning for AICD placement will require control of airway with oral intubation and may result in some difficulties with safe extubation in the acute postop period. I will discuss further with my cardiology and hospitalist colleagues. If we elect to proceed, I think we need to confirm that we have an ICU bed available for postop care. Due to her numerous comorbidities including severe COPD, long history of tobacco use, recent cardiac arrest and severe cardiomyopathy, she is at clearly substantially increased risk for perioperative complications related to AICD implantation. Status: Acute Consult Attestations Medical Necessity Statement: Severe cardiomyopathy with recent cardiac arrest with ventricular fibrillation. Coding Level of Care Code Acute [employer] Project Manager for [facility] Fwd Diagnoses Cardiomyopathy I42.9
[2021-11-29] MEDS: ipratropium 0.5 mg/2.5 mL Neb INHALATION ×3 (07:54→20:14)
[2021-11-29] MEDS: budesonide 0.5 mg/2 mL Neb INHALATION ×2 (07:54→20:14)
[2021-11-29] MEDS: levalbuterol 1.25 mg/3 mL Neb INHALATION ×3 (07:54→20:14)
[2021-11-29] MEDS: metoprolol tartrate 25 mg Tablet PO ×2 (08:12→22:27)
[2021-11-29] MEDS: aspirin 81 mg EC Tablet PO (08:13)
[2021-11-29] MEDS: ferrous gluconate 324 mg Tablet PO ×2 (08:13→18:49)
[2021-11-29] MEDS: magnesium oxide 400 mg tablet PO ×2 (08:13→18:49)
[2021-11-29] MEDS: amiodarone 200 mg Tablet PO ×2 (08:13→18:49)
[2021-11-29] MEDS: docusate sodium 100 mg Capsule PO ×2 (08:13→18:49)
[2021-11-29] MEDS: pantoprazole DR 40 mg Tablet PO (08:13)
[2021-11-29] MEDS: sucralfate 1 gm Tablet PO ×2 (08:14→22:25)
[2021-11-29] MEDS: nicotine 21 mg Patch 1 PATCH TRANSDERMA (08:14)
[2021-11-29] MEDS: cefTRIAXone 1,000 MG in sodium chloride 0.9% (plus) 50 ML 100 MG IV (08:16)
[2021-11-29] MEDS: lidocaine 5% Patch 1 PATCH TOPICAL ×2 (08:18→22:26)
--- NOTE | 2021-11-29 09:07 | PC.SOCIAL ---
IMM Updated Updated pt on IMM. No questions voiced. Provided pt a copy. Initialed, dated, & timed copy in chart.
--- NOTE | 2021-11-29 09:53 | P.PN_ITS ---
Subjective Subjective: Patient was seen and examined, this morning, has some difficulty laying flat,was complaining of anterior chest pain, likely 2/2 chest compression from prior CPR.Urine output has been incorrectly charted.Overall she is saturating well on 2 to 5 ls oxygen through nasal canula.She is scheduled for AICD Placement today.No other acute events. Medications: Medication Review Details: Generic Name Dose Route Start Last Admin Trade Name Freq PRN Reason Stop Dose Admin Acetaminophen 650 mg 11/22/21 17:04 11/26/21 04:15 Acetaminophen 32 5 Mg Tablet PO 650 mg Q6H PRN Administration Mild/Mod Pain Or Temp >/= 101 Albuterol/Ipratrop ium 3 ml 11/22/21 17:04 11/25/21 06:32 Ipratropium-Albu terol 3 Ml Neb INHALATION 3 ml Q6H PRN Administration SHORTNESS OF MARK TH Alprazolam 0.25 mg 11/24/21 16:53 11/26/21 06:44 Alprazolam 0.5 M g Tablet PO 0.25 mg TID PRN Administration ANXIETY Amiodarone HCl 200 mg 11/24/21 18:00 11/27/21 08:28 Amiodarone 200 M g Tablet PO 200 mg BID JOHN Administration Aspirin 81 mg 11/23/21 09:00 11/27/21 08:28 Aspirin 81 Mg Ec Tablet PO 81 mg DAILY JOHN Administration Atorvastatin Calci um 40 mg 11/24/21 21:00 11/26/21 20:17 Atorvastatin 40 Mg Tablet PO 40 mg BEDTIME JOHN Administration Budesonide 0.5 mg 11/22/21 20:00 11/27/21 08:02 Budesonide 0.5 M g/2 Ml Neb INHALATION 0.5 mg BID.RESPIRATORY S [facility] Administration Clopidogrel Bisulf ate 75 mg 11/25/21 09:45 11/27/21 08:29 Clopidogrel 75 M g Tablet PO 75 mg DAILY JOHN Administration Docusate Sodium 100 mg 11/22/21 18:00 11/27/21 08:27 Docusate Sodium 100 Mg Capsule PO 100 mg BID JOHN Administration Enoxaparin Sodium 40 mg 11/25/21 12:00 11/26/21 13:08 Enoxaparin 40 Mg /0.4 Ml Syringe SUBCUT 40 mg Q24H JOHN Administration Ferrous Gluconate 324 mg 11/23/21 18:00 11/27/21 08:28 Ferrous Gluconat e 324 Mg Tablet PO 324 mg BIDWM JOHN Administration Fluticasone Propio meliza 1 spray 11/25/21 00:11 11/25/21 00:52 Fluticasone [place] 16gm Btl NASAL 1 spray BID PRN Administration NASAL CONGESTION Furosemide 40 mg 11/26/21 18:00 11/27/21 08:29 Furosemide 10 Mg /Ml Sdv 4ml IVP 40 mg BID JOHN Administration Piperacillin Sod/T azobactam 100 mls @ 25 mls/ hr 11/24/21 20:15 11/27/21 03:37 Sod 3.375 gm/ So dium Chloride IV 25 mls/hr Q8H JOHN Administration Ipratropium Bromid e 0.5 mg 11/25/21 12:00 11/27/21 08:02 Ipratropium 0.5 Mg/2.5 Ml Neb INHALATION 0.5 mg QID.RESPIRATORY S CH Administration Levalbuterol HCl 1.25 mg 11/25/21 12:00 11/27/21 08:02 Levalbuterol 1.2 5 Mg/3 Ml Neb INHALATION 1.25 mg QID.RESPIRATORY S CH Administration Lidocaine 1 patch 11/25/21 13:45 11/27/21 08:29 Lidocaine 5% Pat ch TOPICAL 1 patch [id number] JOHN Administration Magnesium Oxide 400 mg 11/25/21 18:00 11/27/21 08:28 Magnesium Oxide 400 Mg Tablet PO 400 mg BID JOHN Administration Metoprolol Tartrat e 25 mg 11/25/21 11:30 11/27/21 08:29 Metoprolol Tartr ate 25 Mg Tablet PO 25 mg BID@0900,2100 JOHN Administration Morphine Sulfate 1 mg 11/26/21 10:16 11/26/21 16:25 Morphine 4 Mg/Ml Sdv 1 Ml IVP 1 mg Q4H PRN Administration SEVERE PAIN Nicotine 1 patch 11/26/21 09:00 11/27/21 08:29 Nicotine 21 Mg P atch TRANSDERMA 1 patch DAILY JOHN Administration Pantoprazole Sodiu m 40 mg 11/23/21 09:00 11/27/21 08:[address] 40 Mg Tablet PO 40 mg DAILY JOHN Administration Prednisone 40 mg 11/27/21 09:00 11/27/21 08:29 Prednisone 20 Mg Tablet PO 40 mg DAILY JOHN Administration Sucralfate 1 gm 11/25/21 11:00 11/27/21 10:56 Sucralfate 1 Gm Tablet PO 1 gm AC&BEDTIME JOHN Administration Tramadol HCl 50 mg 11/22/21 17:04 11/26/21 00:34 Tramadol 50 Mg T ablet PO 50 mg Q6H PRN Administration MODERATE TO SEVER E PAIN Vitals/I&O/Wt Last Vital Signs Temp 97.8 F 11/29/21 07:05 Pulse 70 11/29/21 07:57 Resp 16 11/29/21 07:57 BP 147/77 11/29/21 07:05 Pulse Ox 95 11/29/21 07:57 11/28/21 11/29/21 11/29/21 22:59 06:59 14:59 Intake Total 840 / 1190 0 / 1190 0 / 0 Output Total 250 / 250 Balance 840 / 1190 -250 / 940 0 / 0 Weight last 48 hrs Weight 83.28 kg Physical Exam Const: COMMON NORMALS: patient oriented x3 HENMT: COMMON NORMALS: normocephalic and atraumatic HEAD & SCALP: normocephalic and atraumatic Eye: GENERAL EYE: appearance normal, both eyes and all related structures Chest: COMMONS NORMALS: normal inspection of the chest and normal palpation of entire chest wall CHEST: Yes Symmetrical chest wall rise Resp: COMMON NORMALS: normal respiratory effort, No retractions and No use of accessory muscles EFFORT & INSPECTION: Yes symmetric chest movement OTHER: Diminished air entry bilaterally predominantly at bases. Cardio: COMMON NORMALS: regular rate, regular rhythm, S1 normal heart sound present, S2 normal heart sound present, No gallops present (Cardio), No murmurs present (Cardio), No rub (Cardio) and Peripheral pulses 2+ throughout RATE: regular rate RHYTHM: regular rhythm HEART SOUNDS: S1 normal heart sound present and S2 normal heart sound present PERIPHERAL PULSES: Peripheral pulses 2+ throughout GI: COMMON NORMALS: Normal to inspection, nondistended, normoactive bowel sounds present, Soft to palpation, non-tender, No hepatosplenomegaly present and no masses AUSCULTATION: Yes normoactive bowel sounds PALPATION: Yes Soft to palpation and Yes No hepatosplenomegaly present RECTAL EXAM: deferred Extremity: COMMON NORMALS: no clubbing, cyanosis or edema and no pedal edema Neuro: COMMON NORMALS: patient oriented x3 Urinary Catheter Management: Rubio: Cath Placed During This Visit: yes Reason for Continuing Indwelling Catheter: Accurate Measurement of Urinary Output in Critically Ill Patients Urinary Catheter Date of Insertion: 11/22/21 Urinary Catheter Time of Insertion: 14:33 Data : 11/29/21 04:43 11/29/21 04:43 Micro: Microbiology 11/26/21 11:21 Gram Stain - Final Sputum - Expectorated Sputum Sputum Culture - Final A&P Assessment and plan (1) Cardiac arrest with successful resuscitation: Ice pad, Lidocaine patch. Will avoid ibuprofen, NSAIDs, oxy as patient allergic. Status: Acute (2) Cardiac arrest with ventricular fibrillation: Continue with amiodarone 200 mg twice daily. Underwent CAG yesterday and PCI to RCA. Will need ICD for secondary prevention. Keep potassium around 4, magnesium over 2. Will monitor QTC. Troponin slightly elevated most likely post CPR. Switch to PPx dose of lovenox. Continue with aspirin 81 mg daily, Atorvastatin 40 mg oral daily. A1c 5.6. Status: Acute (3) CAD (coronary artery disease): Post PCI to RCA. C/w ASA, plavix, statin. Chest pain free. ECHO appreciated. Status: Acute (4) CHF (congestive heart failure): Echocardiogram shows an EF of 30% with global LV hypokinesia and dilatation, normal RV size, mild to trace mitral regurgitation, moderate aortic valve regurgitation, trace TR. Congestive heart failure systolic type. Strict input for charting, daily weights. Gentle IV diuresis. IV lasix 40 daily. Start on metoprolol 25 mg BID. Will initiate heart failure medications including LOBO inhibitor, spironolactone. Status: Acute (5) Chronic obstructive pulmonary disease: Switch DuoNeb to Ipratropium and xoponex QID, budesonide twice daily. Wean off Solu-Medrol to 40 mg IV daily. Post CPR there is a concern for possible aspiration pneumonia versus pneumonitis. Continue with Zosyn. MRSA swab negative, sputum culture awaited. Incentive spirometry. Status: Chronic Qualifiers: COPD type: COPD with acute exacerbation Qualified Code(s): J44.1 - Chronic obstructive pulmonary disease with (acute) exacerbation (6) Acute kidney injury: Most likely secondary to aggressive diuresis and slightly vascular depleted, Lasix na?ve patient. Creatinine improving. Creat 1.3 today. Medical reconciliation done for nephrotoxic drugs. Hold off on LOBO inhibitor for now. We will restart diuresis at a lower rate at 40 mg daily today. Monitor BMP daily. Status: Acute (7) Aspiration pneumonitis: Status: Acute (8) Hypertension: Goal blood pressure less than 140/90 mmHg. Start on metoprolol today. Will add ACEi as per creatinine accordingly. Status: Chronic (9) Nicotine dependence, cigarettes, with other nicotine-induced disorders: ~60 pack year history, does express interest in wanting to quit, has tried many times unsuccessfully really making it more than a couple of days Nicotine patch if needed Encouraged repeated attempts at smoking cessation Status: Chronic Plan 76-year-old female with past medical history of COPD hypertension , chronic smoker , initially brought in with chief complaint of shortness of breath, hospital course has been complicated, found to have new diagnosis of Heart failure with reduced ejection fraction, coronary artery disease s/p PCI to RCA, s/p V. fib arrest during the hospital stay. Assessment: Status post V. fib arrest: 1 round of CPR, 1 epi and one-time defibrillation, ac hievement of ROSC. Post ROSC patient was in A. fib, for which was started on amiodarone drip, currently on p.o. amiodarone. ICD placement #coronary artery disease: s/p PCI to RCA Continue aspirin , Plavix , statin, beta-virgilio # Heart failure with reduced ejection fraction : Continue Lasix 40 mg IV daily Lisinopril 5 mg p.o. daily Continue beta-virgilio Intake output charting k>4,mg>2 She will also need to be on spironlactone #COPD: Continue duo nebs Solu-Medrol 60 IV daily Supplemental oxygen as needed #Bilateral small pleural effusion: Likely secondary to decompensated heart failure, less likely pneumonia. Ultrasound chest: Small bilateral pleural effusions with atelectatic mobile lung within the fluid She was on Zosyn initially for possible aspiration pneumonia during the code Antibiotic has been narrowed down to ceftriaxone. #Hypertension: Lisinopril 5 mg p.o. daily #Disposition: Patient will likely need care home placement given her significant comorbidities, and overall functional status. Full code. Cardiac diet. Lovenox for DVTprophylaxis. Protonix for PUD prophylaxis. Attestations Medical Necessity Statement*: Patient is still in hospital for management of decompensated heart failure, currently awaiting AICD placement. Coding Level of Care Code Acute Ground Wood Supervisor for g Fwd Exam Comprehensive Diagnoses Cardiac arrest with successful resuscitation I46.9 Cardiac arrest with ventricular fibrillation I46.9; I49.01 CAD (coronary artery disease) I25.10 CHF (congestive heart failure) I50.9 Chronic obstructive pulmonary disease J44.1 COPD type: COPD with acute exacerbation Acute kidney injury N17.9 Aspiration pneumonitis J69.0 Hypertension I10 Nicotine dependence, cigarettes, with other nicotine-induced disorders F17.218
--- NOTE | 2021-11-29 10:33 | SC_ITS ---
WS: [id number] C-arm fluoroscopy for cardiac pacemaker insertion, 11/29/2021 Clinical Data: DEFIB PLACEMENT Comparison: None. Findings: Dr. Ruff inserted a cardiac pacemaker wire. SC/C-arm FL for Pacemaker Impression: Insertion of cardiac pacemaker wire.
--- NOTE | 2021-11-29 12:35 | PC.NURSE ---
surgery Pt went down to surgery. Sisters followed. talked with family(daughter and both sisters) and patient regarding surgery and possible intubation.
--- NOTE | 2021-11-29 12:45 | ANES.PREANE2 ---
Pre-Anesthetic Assessment Height/Weight: Height 1.63 m Weight 85.548 kg Temp Pulse Resp BP Pulse Ox 98.8 F 73 17 157/64 92 11/29/21 12:37 11/29/21 12:37 11/29/21 12:37 11/29/21 12:37 11/29/21 12:37 Preop Diagnosis: Ventricular fibrillation Operation Date: 11/24/21 13:45 Proposed Procedures p Cardiac Catheterization(Not Applicable) - Jona Crawford M.D Operation Date: 11/29/21 14:00 Proposed Procedures p Defibrillator Placement(Not Applicable) - Kavin Barrett MD Familial anesthetic complications: None Was Beta Michael taken within 24 hours: Yes Was Clonidine taken within 24 hours: N/A Last intake: Intake Last Liquid Date 11/28/21 Last Liquid Time 23:30 Last Solid Date 11/28/21 Last Solid Time 19:35 Social Tobacco and No alcohol Exam alert, oriented x 3, clear to auscultation bilaterally and regular rate & rhythm Airway Mallampati: Class II Dentition: false Pulmonary Chronic Obstructive Pulmonary Disease requiring bipap overnight for desaturation, on Nasal canula. Possible aspiration during code CV/HEM Arrythmia, Coronary Artery Disease, Congestive Heart Failure and Hypertension s/p cardiac arrest w/ EF 30% marlys Anesthetic Plan ASA status: 4 Anesthesia: General and MAC Other: Patient unable to lay flat at baseline d/t SOB, now with increased SOB over baseline. May require intubation, patient informed may go to ICU on breathing machine/ventilator. Risk of > 500 ml blood loss (7ml/kg in children): No Medications/Allergies Home Medications Medication Instructions Recorded Confirmed Last Taken Type calcium carbonate 600 mg calcium 1,200 mg PO BEDTIME 11/03/21 11/22/21 Unknown History (1,500 mg) tablet (Calcium) cholecalciferol (vitamin D3) 50 50 mcg PO DAILY 11/03/21 11/22/21 Unknown History mcg (2,000 unit) capsule cinnamon bark 500 mg capsule 500 mg PO .EIGHT TIMES A DAY 11/03/21 11/22/21 Unknown History coenzyme Q10 100 mg capsule (Co 100 mg PO QAM 11/03/21 11/22/21 Unknown History Q-10) albuterol sulfate 90 mcg/actuation 1 inh INHALATION QID PRN #8.5 g 11/14/21 11/22/21 Unknown Rx aerosol inhaler (ProAir HFA) budesonide-formoterol HFA 160 2 puff INHALATION BID #10.2 g 11/14/21 11/22/21 Unknown Rx mcg-4.5 mcg/actuation aerosol inhaler (Symbicort) tiotropium bromide 1.25 2 puff INHALATION DAILY #4 g 11/14/21 11/22/21 Unknown Rx mcg/actuation mist for inhalation (Spiriva Respimat) Vitamin B-12 1 tab PO DAILY 11/22/21 11/22/21 Unknown History aspirin 325 mg tablet 325 mg PO DAILY 11/22/21 11/22/21 Unknown History ciaran (Zingiber officinalis) 550 550 mg PO DAILY 11/22/21 11/22/21 Unknown History mg capsule ginkgo biloba 1 tab PO DAILY 11/22/21 11/22/21 Unknown History green tea leaf extract (Green Tea) 1 cap PO DAILY 11/22/21 11/22/21 Unknown History multivitamin 1 tab PO DAILY 11/22/21 11/22/21 Unknown History niacin 1 tab PO QAM 11/22/21 11/22/21 Unknown History vitamin B complex 1 tab PO DAILY 11/22/21 11/22/21 Unknown History Allergies Allergy/AdvReac Type Severity Reaction Status Date / Time acetaminophen [From [place]] Allergy ALGY-Difficulty Verified 11/22/21 14:02 Breathing codeine Allergy ALGY-Difficulty Verified 11/22/21 14:02 Breathing hydrocodone [From [facility]] Allergy ALGY-Difficulty Verified 11/22/21 14:02 Breathing Current Medications Generic Name Dose Route Start Last Admin Trade Name Freq PRN Reason Stop Dose Admin Acetaminophen 650 mg 11/22/21 17:04 11/26/21 04:15 Acetaminophen 325 Mg Tablet PO 650 mg Q6H PRN Administration Mild/Mod Pain Or Temp >/= 101 Albuterol/Ipratropium 3 ml 11/22/21 17:04 11/25/21 06:32 Ipratropium-Albuterol 3 Ml Neb INHALATION 3 ml Q6H PRN Administration SHORTNESS OF BREATH Alprazolam 0.25 mg 11/24/21 16:53 11/26/21 06:44 Alprazolam 0.5 Mg Tablet PO 0.25 mg TID PRN Administration ANXIETY Amiodarone HCl 200 mg 11/24/21 18:00 11/29/21 08:13 Amiodarone 200 Mg Tablet PO 200 mg BID JOHN Administration Aspirin 81 mg 11/23/21 09:00 11/29/21 08:13 Aspirin 81 Mg Ec Tablet PO 81 mg DAILY [facility] Administration Atorvastatin Calcium 40 mg 11/24/21 21:00 11/28/21 20:49 Atorvastatin 40 Mg Tablet PO 40 mg BEDTIME JOHN Administration Budesonide 0.5 mg 11/22/21 20:00 11/29/21 07:54 Budesonide 0.5 Mg/2 Ml Neb INHALATION 0.5 mg BID.RESPIRATORY JOHN Administration Chlorhexidine Gluconate 1 applic 11/28/21 18:00 11/29/21 04:36 Chlorhexidine Gluconate 4% Btl 118 Ml TOPICAL 1 applic BID JOHN Administration Docusate Sodium 100 mg 11/22/21 18:00 11/29/21 08:13 Docusate Sodium 100 Mg Capsule PO 100 mg BID JOHN Administration Ferrous Gluconate 324 mg 11/23/21 18:00 11/29/21 08:13 Ferrous Gluconate 324 Mg Tablet PO 324 mg BIDWM JOHN Administration Fluticasone Propionate 1 spray 11/25/21 00:11 11/25/21 00:52 Fluticasone Nasal [place] 16gm Btl NASAL 1 spray BID PRN Administration NASAL CONGESTION Furosemide 40 mg 11/29/21 07:00 11/29/21 06:10 Furosemide 10 Mg/Ml Sdv 4ml IVP 40 mg Q24H JOHN Administration Ceftriaxone Sodium 1,000 mg/ 50 mls @ 100 mls/hr 11/28/21 09:15 11/29/21 10:09 Sodium Chloride IV Infused Q24H JOHN Infusion Protocol Ipratropium [place] 0.5 mg 11/25/21 12:00 11/29/21 11:38 Ipratropium 0.5 Mg/2.5 Ml Neb INHALATION 0.5 mg QID.RESPIRATORY JOHN Administration Levalbuterol HCl 1.25 mg 11/25/21 12:00 11/29/21 11:38 Levalbuterol 1.25 Mg/3 Ml Neb INHALATION 1.25 mg QID.RESPIRATORY JOHN Administration Lidocaine 1 patch 11/25/21 13:45 11/29/21 08:18 Lidocaine 5% Patch TOPICAL 1 patch [id number] JOHN Administration Magnesium Oxide 400 mg 11/25/21 18:00 11/29/21 08:13 Magnesium Oxide 400 Mg Tablet PO 400 mg BID JOHN Administration Methylprednisolone Sodium Succinate 60 mg 11/28/21 18:00 11/28/21 17:31 Methylprednisolone Sod Succ 125 Mg/2 Ml Inj IVP 60 mg DAILY@1800 JOHN Administration Metoprolol Tartrate 25 mg 11/25/21 11:30 11/29/21 08:12 Metoprolol Tartrate 25 Mg Tablet PO 25 mg BID@0900,2100 JOHN Administration Morphine Sulfate 1 mg 11/26/21 10:16 11/26/21 16:25 Morphine 4 Mg/Ml Sdv 1 Ml IVP 1 mg Q4H PRN Administration SEVERE PAIN Nicotine 1 patch 11/26/21 09:00 11/29/21 08:14 Nicotine 21 Mg Patch TRANSDERMA 1 patch DAILY [facility] Administration Pantoprazole Sodium 40 mg 11/23/21 09:00 11/29/21 08:[address] 40 Mg Tablet PO 40 mg DAILY [facility] Administration Sucralfate 1 gm 11/25/21 11:00 11/29/21 08:14 Sucralfate 1 Gm Tablet PO 1 gm AC&BEDTIME JOHN Administration Tramadol HCl 50 mg 11/22/21 17:04 11/26/21 00:34 Tramadol 50 Mg Tablet PO 50 mg Q6H PRN Administration MODERATE TO SEVERE PAIN Additional Medication Information Generic Name Dose Route Start Last Admin Trade Name Freq PRN Reason Stop Dose Admin Acetaminophen 650 mg 11/22/21 17:04 11/26/21 04:15 Acetaminophen 325 Mg Tablet PO 650 mg Q6H PRN Administration Mild/Mod Pain Or Temp >/= 101 Albuterol/Ipratropium 3 ml 11/22/21 17:04 11/25/21 06:32 Ipratropium-Albuterol 3 Ml Neb INHALATION 3 ml Q6H PRN Administration SHORTNESS OF BREATH Alprazolam 0.25 mg 11/24/21 16:53 11/26/21 06:44 Alprazolam 0.5 Mg Tablet PO 0.25 mg TID PRN Administration ANXIETY Amiodarone HCl 200 mg 11/24/21 18:00 11/27/21 08:28 Amiodarone 200 Mg Tablet PO 200 mg BID JOHN Administration Aspirin 81 mg 11/23/21 09:00 11/27/21 08:28 Aspirin 81 Mg Ec Tablet PO 81 mg DAILY JOHN Administration Atorvastatin Calcium 40 mg 11/24/21 21:00 11/26/21 20:17 Atorvastatin 40 Mg Tablet PO 40 mg BEDTIME JOHN Administration Budesonide 0.5 mg 11/22/21 20:00 11/27/21 08:02 Budesonide 0.5 Mg/2 Ml Neb INHALATION 0.5 mg BID.RESPIRATORY JOHN Administration Clopidogrel Bisulfate 75 mg 11/25/21 09:45 11/27/21 08:29 Clopidogrel 75 Mg Tablet PO 75 mg DAILY JOHN Administration Docusate Sodium 100 mg 11/22/21 18:00 11/27/21 08:27 Docusate Sodium 100 Mg Capsule PO 100 mg BID JOHN Administration Enoxaparin Sodium 40 mg 11/25/21 12:00 11/26/21 13:08 Enoxaparin 40 Mg/0.4 Ml Syringe SUBCUT 40 mg Q24H JOHN Administration Ferrous Gluconate 324 mg 11/23/21 18:00 11/27/21 08:28 Ferrous Gluconate 324 Mg Tablet PO 324 mg BIDWM JOHN Administration Fluticasone Propionate 1 spray 11/25/21 00:11 11/25/21 00:52 Fluticasone Nasal [place] 16gm Btl NASAL 1 spray BID PRN Administration NASAL CONGESTION Furosemide 40 mg 11/26/21 18:00 11/27/21 08:29 Furosemide 10 Mg/Ml Sdv 4ml IVP 40 mg BID JOHN Administration Piperacillin Sod/Tazobactam 100 mls @ 25 mls/hr 11/24/21 20:15 11/27/21 03:37 Sod 3.375 gm/ Sodium Chloride IV 25 mls/hr Q8H JOHN Administration Ipratropium [place] 0.5 mg 11/25/21 12:00 11/27/21 08:02 Ipratropium 0.5 Mg/2.5 Ml Neb INHALATION 0.5 mg QID.RESPIRATORY JOHN Administration Levalbuterol HCl 1.25 mg 11/25/21 12:00 11/27/21 08:02 Levalbuterol 1.25 Mg/3 Ml Neb INHALATION 1.25 mg QID.RESPIRATORY JOHN Administration Lidocaine 1 patch 11/25/21 13:45 11/27/21 08:29 Lidocaine 5% Patch TOPICAL 1 patch [id number] JOHN Administration Magnesium Oxide 400 mg 11/25/21 18:00 11/27/21 08:28 Magnesium Oxide 400 Mg Tablet PO 400 mg BID JOHN Administration Metoprolol Tartrate 25 mg 11/25/21 11:30 11/27/21 08:29 Metoprolol Tartrate 25 Mg Tablet PO 25 mg BID@0900,2100 JOHN Administration Morphine Sulfate 1 mg 11/26/21 10:16 11/26/21 16:25 Morphine 4 Mg/Ml Sdv 1 Ml IVP 1 mg Q4H PRN Administration SEVERE PAIN Nicotine 1 patch 11/26/21 09:00 11/27/21 08:29 Nicotine 21 Mg Patch TRANSDERMA 1 patch DAILY JOHN Administration Pantoprazole Sodium 40 mg 11/23/21 09:00 11/27/21 08:[address] 40 Mg Tablet PO 40 mg DAILY JOHN Administration Prednisone 40 mg 11/27/21 09:00 11/27/21 08:29 Prednisone 20 Mg Tablet PO 40 mg DAILY JOHN Administration Sucralfate 1 gm 11/25/21 11:00 11/27/21 10:56 Sucralfate 1 Gm Tablet PO 1 gm AC&BEDTIME JOHN Administration Tramadol HCl 50 mg 11/22/21 17:04 11/26/21 00:34 Tramadol 50 Mg Tablet PO 50 mg Q6H PRN Administration MODERATE TO SEVERE PAIN PFSH Anesthesia Medical History Age related osteoporosis Cardiac arrest with successful resuscitation Cardiac arrest with ventricular fibrillation Chronic obstructive pulmonary disease History of rib fracture left 6, 7, 8 Hypertension Macular degeneration Nicotine dependence, cigarettes, with other nicotine-induced disorders Osteoarthritis Surgical History H/O total knee replacement right History of total hip replacement right History of tubal ligation Family History Mother CAD (coronary artery disease) in 70s from heart attack Father Cancer lung Social History Smoking and tobacco status: current every day smoker cigarettes [ Other cigarette details: Smoked since her teenage years (about 58 years)] Alcohol intake: never Substance/Drug Use: never Household members: none Number of children: 2 Data Anesthesia : 11/29/21 04:43 11/29/21 04:43 Short CBC 11/28/21 11/29/21 Range/Units 02:12 04:43 WBC 10.7 H 11.5 H (4.0-10.0) 10^3/uL Hgb 12.4 12.7 (11.5-15.3) g/dL Hct 39.1 42.0 (37.0-47.0) % MCV 92.9 96.3 (81-99) fl Plt Count 167 175 (130-400) 10^3/cmm Neut % (Auto) 85.7 93.0 % Neut # (Auto) 9.19 H 10.72 H (1.8-7.7) 10^3/uL BMP 11/28/21 11/29/21 02:12 04:43 Sodium 140 139 Potassium 3.6 4.3 Chloride 97 L 99 Carbon Dioxide 33 H 32 H BUN 30 H 32 H Creatinine 1.1 H 1.0 H Glucose 101 124 H Calcium 8.3 L 8.0 L Cardiac Enzymes 11/28/21 11/28/21 Range/Units 02:12 02:12 Troponin T Gen 5 ng/L 103 H* (0-10) ng/L NT-Pro-B Natriuret Pep 45437 H (0-450) pg/mL ABG 11/28/21 01:35 Specimen Type Arterial Sample Site Brachial,right ABG pH 7.47 H ABG pCO2 53.8 H ABG pO2 64.8 L ABG HCO3 39.5 H ABG O2 Saturation 94 ABG Base Excess 13.6 H O2 Delivery Device Bipap FiO2 40.0 Mode BiPAP 16/6 Microbiology 11/26/21 11:21 Gram Stain - Final Sputum - Expectorated Sputum Sputum Culture - Final Cardiac Studies: Echocardiogram 11/22/21
[2021-11-29] MEDS: lidocaine 2% INJ 20 mL INJECTION (15:01)
[2021-11-29] MEDS: ceFAZolin 1,000 mg SDV 1000 MG IRRIGATION (15:01)
--- NOTE | 2021-11-29 16:14 | PM.OP ---
Operative Report Date of procedure: November 29, 2021 Pre-op diagnosis: Preop Diagnosis cardiomyopathy with recent episode of ventricular fibrillation Post-op diagnosis: same Procedure done: Automatic implantable cardiac defibrillator implantation Implants: AICD generator AICD right ventricular lead Pathology: none sent Surgeon: Kavin Barrett Estimated blood loss (mL): 20 Complications: None: Post procedure chest x-ray pending Brief History: Ms. Villalobos is a 76-year-old female whom I was consulted for AICD implantation secondary to severe cardiomyopathy. She had originally presented with symptoms of congestive heart failure and was undergoing undergoing medical treatment. Subsequent left heart catheterization revealed a distal RCA lesion which underwent drug-eluting stent placement by Dr. Crawford. However, it is felt that she has a diffuse cardiomyopathy unrelated to this coronary lesions. She did suffer cardiac arrest with ventricular fibrillation and was successfully rescued with CPR and electrical cardioversion. She has substantial dyspnea even at rest so the potential need for mechanical ventilation with AICD placement was carefully discussed with her, her sisters, and her daughter by phone. All stated understanding and wished to proceed. Appropriate consents have been reviewed and signed. Procedure: Procedure: Ms. Villalobos was taken to the OR suite and placed in the supine position over a shoulder roll. She received conscious sedation with continuous anesthesia monitoring. Her entire chest was sterilely prepped and draped. 1% lidocaine was infiltrated in the left subclavicular region. While in Trendelenburg position, utilizing modified seldinger technique, a guidewire was placed in the left subclavian vein. This was confirmed in position by fluoroscopy. Next, after infiltration with lidocaine, a subcutaneous pocket was created beginning from the exit point of the guidewire and extending laterally and inferiorly. Cautery was utilized to create the pocket just above the pectoralis musculature. Hemostasis was confirmed. An antibiotic-soaked sponge was placed in the wound. A dilator and tear-away sheath was placed over the guidewire and advanced under fluoroscopy. Guidewire and dilator were removed. Next using a combination of curved and straight stylettes, the right ventricular lead was placed in position by fluoroscopy. The distal screw was extended. Interrogation was then performed confirming appropriate parameters. The tear-away sheath was then removed and the ventricular lead was sewn to the floor of the subcutaneous pocket. Generator was brought into the field, and after confirmation of hemostasis in the subcutaneous pocket, the lead was connected to the generator with appropriate capture. The entire system was interrogated by fluoroscopy. Lead and generator were secured in the pocket. Sponge and needle count was correct. The wound was then closed in 2 layers of 3-0 Vicryl suture. Skin was reapproximated in a subcuticular manner with 4-0 Monocryl suture. A pressure dressing was applied. The left arm was placed in a sling. The patient had equal breath sounds bilaterally. She was then transferred to the PACU, where chest x-ray is currently pending. I did licensed professional counselor with her sister at the completion of the procedure. Following are the specifics of this system: Right ventricular lead is 55 cm and model 6935M. Serial number [id number] Ventricular lead had sensing of 9.5 mV with an impedance of 660 ohms. Threshold was 0.8 V [employer] AICD generator: Model # [id number] Serial # [id number]
--- NOTE | 2021-11-29 16:27 | XRR_ITS ---
PROCEDURE INFORMATION: Exam: XR Chest Exam date and time: 11/29/2021 4:34 PM Age: 76 years old Clinical indication: Device placement; Cardiac defibrillator placementor adjustment; Additional info: Status post defib placement TECHNIQUE: Imaging protocol: XR of the chest. Views: 1 view. COMPARISON: CR (CHEST, ) 11/28/2021 1:59 AM FINDINGS: Tubes, catheters and devices: Defibrillator seen with lead projected over the left heart border. Lungs: Pulmonary vascular congestion. Pleural spaces: Small to moderate bilateral pleural effusions right greater than left. Heart/Mediastinum: Cardiomegaly. Bones/joints: Unremarkable. XR/XR chest 1V portable [id number] IMPRESSION: 1. Defibrillator seen with lead projected over the left heart border. 2. Cardiomegaly. 3. Pulmonary vascular congestion. 4. Small to moderate bilateral pleural effusions right greater than left.
--- NOTE | 2021-11-29 17:20 | PM.PN ---
Subjective Subjective: Patient is feeling better. Underwent ICD placement today Vitals/I&O/Wt Last Vital Signs Temp 98.3 F 11/29/21 16:18 Pulse 80 11/29/21 16:18 Resp 18 11/29/21 16:18 BP 168/59 11/29/21 16:18 Pulse Ox 96 11/29/21 16:18 11/29/21 11/29/21 11/29/21 06:59 14:59 22:59 Intake Total 0 / 1190 50 / 50 50 / 100 Output Total 250 / 250 5 / 5 Balance -250 / 940 50 / 50 45 / 95 Weight last 48 hrs Weight 188 lb 9.6 oz Weight 183 lb 9.6 oz Physical Exam Narrative: CONSTITUTIONAL: Alert and oriented x 3 HEENT: Normocephalic, atraumatic.[] RESPIRATORY:? Has bilateral mild crackles CARDIOVASCULAR: S1, S2, normal rate and rhythm GI: Soft EXTREMITIES: Has 1+ edema Urinary Catheter Management: Rubio: Cath Placed During This Visit: yes Reason for Continuing Indwelling Catheter: Accurate Measurement of Urinary Output in Critically Ill Patients Urinary Catheter Date of Insertion: 11/22/21 Urinary Catheter Time of Insertion: 14:33 Data : 11/29/21 04:43 11/29/21 04:43 A&P Assessment and plan (1) Aspiration pneumonitis: Status: Acute (2) Acute kidney injury: Status: Acute (3) Cardiac arrest with ventricular fibrillation: Status: Acute (4) Chronic obstructive pulmonary disease: Status: Chronic Qualifiers: COPD type: COPD with acute exacerbation Qualified Code(s): J44.1 - Chronic obstructive pulmonary disease with (acute) exacerbation (5) CHF (congestive heart failure): Status: Acute (6) Hypertension: Status: Chronic Plan Patient had ventricular fibrillation requiring defibrillation with shock x1. She again had nonsustained VT. She has new onset congestive heart failure. No known coronary artery disease history. Coronary angiogram showed severe distal RCA stenosis that underwent successful revascularization with RATNA X1 . Renal function is improving and patient is diuresing well ICD placed today. Continue aspirin and plavix for atleast 1 year Continue Lasix. Patient will need continued diuresis for now ECHO shows EF of 30%. Thank you for involving us with care of this patient. We will continue to follow Attestations Medical Necessity Statement*: Care expected to cross 2 midnights. Coding Level of Care Code Acute Seal Extrusion Operator for [facility] Fwd Diagnoses Aspiration pneumonitis J69.0 Acute kidney injury N17.9 Cardiac arrest with ventricular fibrillation I46.9; I49.01 Chronic obstructive pulmonary disease J44.1 COPD type: COPD with acute exacerbation CHF (congestive heart failure) I50.9 Hypertension I10
--- NOTE | 2021-11-29 17:37 | SUR.PHASEI ---
Julissa Stoll RN was taking care of the pt when I was asked to take over, nothing had been charted on the pt, v/s written on pads of paper by Julissa. I was asked to put the v/s in that had been written down. I got here at 1700 and was given report and took over care of the pt at that time.
--- NOTE | 2021-11-29 18:19 | ANE.PACU2 ---
Inpatient post-anesthesia follow up: Airway intact: Yes Vital signs: Temperature 97.6 F Pulse Rate 66 Respiratory Rate 17 Blood Pressure [Le ft Arm] 128/74 Blood Pressure 159/72 Pulse Oximetry 91 Oxygen Delivery Me thod Nasal Cannula Oxygen Flow Rate 4 Fraction of Inspir ed Oxygen 50 Hydration adequate: Yes Nausea and vomiting: No Pain level: 1
--- NOTE | 2021-11-29 20:25 | PC.NURSE ---
Report Received from Pam. Patient is in bed receiving breathing treatment from respiratory therapy.
[2021-11-29] MEDS: atorvastatin 40 mg Tablet PO (22:26)
[2021-11-30] VITALS (16 sets, daily range): BP systolic 124–141; BP diastolic 56–72; PULSE 65–80; RESP 14–22; TEMP 36.4–36.7; O2SAT 90–98
[2021-11-30] MEDS: sucralfate 1 gm Tablet PO ×4 (06:03→21:05)
[2021-11-30] MEDS: FUROsemide 10 mg/mL SDV 4mL 40 MG IVP ×2 (06:03→17:30)
[2021-11-30 06:31] LABS: Hematocrit 41.8 % (37.0-47.0); Hemoglobin 12.9 g/dL (11.5-15.3); Lymphocytes # 0.3 10^3/uL (0.8-4.8); Lymphocytes % 3.5 %; Mean Corpuscular HGB Conc 30.9 g/dL (30.0-36.0); Mean Corpuscular Hemoglobin 29.3 pg (28.0-34.0); Mean Platelet Volume 11.4 fL (7.4-10.4); Monocytes # 0.2 10^3/uL (0.2-0.9); Monocytes % 2.3 %; Neutrophils # 8.45 10^3/uL (1.8-7.7); Neutrophils % 93.6 %; Nucleated Red Blood Cells % 0 %; Platelet Count 191 10^3/cmm (130-400); Red Cell Distribution Width 15.3 % (12.1-15.1)
[2021-11-30 06:58] LABS: Anion Gap 13.2 (5-19); Blood Urea Nitrogen 29 mg/dL (8-23); Calcium 8.3 mg/dL (8.5-10.5); Carbon Dioxide 32 mmol/L (22-29); Chloride 96 mmol/L (98-107); Glucose 153 mg/dL (65-115); Osmolality Calculated 293 mOsm/kg (285-295); Potassium 4.2 mmol/L (3.5-5.1); Sodium 137 mmol/L (136-145)
--- NOTE | 2021-11-30 07:17 | PC.NURSE ---
I reported low o2 to the nurse.
[2021-11-30] MEDS: budesonide 0.5 mg/2 mL Neb INHALATION ×2 (07:43→20:03)
[2021-11-30] MEDS: levalbuterol 1.25 mg/3 mL Neb INHALATION ×4 (07:43→20:03)
[2021-11-30] MEDS: ipratropium 0.5 mg/2.5 mL Neb INHALATION ×4 (07:43→20:03)
[2021-11-30] MEDS: cefTRIAXone 1,000 MG in sodium chloride 0.9% (plus) 50 ML 100 MG IV (08:19)
[2021-11-30] MEDS: lisinopril 5 mg Tablet PO (08:20)
[2021-11-30] MEDS: magnesium oxide 400 mg tablet PO ×2 (08:20→17:31)
[2021-11-30] MEDS: docusate sodium 100 mg Capsule PO ×2 (08:20→17:31)
[2021-11-30] MEDS: nicotine 21 mg Patch 1 PATCH TRANSDERMA (08:20)
[2021-11-30] MEDS: lidocaine 5% Patch 1 PATCH TOPICAL (08:21)
[2021-11-30] MEDS: amiodarone 200 mg Tablet PO ×2 (08:21→17:31)
[2021-11-30] MEDS: ferrous gluconate 324 mg Tablet PO ×2 (08:21→17:31)
[2021-11-30] MEDS: aspirin 81 mg EC Tablet PO (08:21)
[2021-11-30] MEDS: pantoprazole DR 40 mg Tablet PO (08:21)
--- NOTE | 2021-11-30 08:31 | PM.PN ---
Subjective Subjective: Postop day #1 status post AICD implantation. Ms. Rodriguez is having breakfast this morning. Only modest incisional discomfort. Vitals/I&O/Wt Last Vital Signs Temp 98.1 F 11/30/21 07:17 Pulse 74 11/30/21 07:52 Resp 20 H 11/30/21 07:43 BP 136/70 11/30/21 07:17 Pulse Ox 90 11/30/21 07:43 11/29/21 11/30/21 11/30/21 22:59 06:59 14:59 Intake Total 680 / 730 750 / 1480 240 / 240 Output Total 5 / 5 300 / 305 600 / 600 Balance 675 / 725 450 / 1175 -360 / -360 Weight last 48 hrs Weight 183 lb 11.2 oz Weight 188 lb 9.6 oz Physical Exam Chest: OTHER: Surgical dressing and arm immobilizer was removed. No appreciable edema or substantial ecchymosis at the insertion site. Urinary Catheter Management: Rubio: Cath Placed During This Visit: yes Reason for Continuing Indwelling Catheter: Acute Urinary Retention or Obstruction Urinary Catheter Date of Insertion: 11/22/21 Urinary Catheter Time of Insertion: 14:33 Data : 11/30/21 05:45 11/30/21 05:45 A&P Assessment and plan (1) Status post implantation of automatic cardioverter/defibrillator (AICD): Postop day #1 status post AICD implantation Plan: May follow-up and [facility] in 1 week. Incision care and activity limitations have been included in the discharge instructions. I will also recommend continuing oral antibiotics for 2 more days after discharge. Status: Acute Attestations Medical Necessity Statement*: Status post AICD implantation secondary to severe cardiomyopathy Coding Level of Care Code Acute Technical Education Teacher for [facility] Fwd Diagnoses Status post implantation of automatic cardioverter/defibrillator (AICD) Z95.810
[2021-11-30] MEDS: metoprolol tartrate 25 mg Tablet PO ×2 (09:31→21:01)
--- NOTE | 2021-11-30 09:31 | PM.PN ---
Subjective Subjective: Patient is doing well. Had ICD placement yesterday. No complaints of chest pain, shortness of breath or palpitations. Vitals/I&O/Wt Last Vital Signs Temp 98.1 F 11/30/21 07:17 Pulse 74 11/30/21 07:52 Resp 20 H 11/30/21 07:43 BP 136/70 11/30/21 07:17 Pulse Ox 90 11/30/21 07:43 11/29/21 11/30/21 11/30/21 22:59 06:59 14:59 Intake Total 680 / 730 750 / 1480 720 / 720 Output Total 5 / 5 300 / 305 600 / 600 Balance 675 / 725 450 / 1175 120 / 120 Weight last 48 hrs Weight 183 lb 11.2 oz Weight 188 lb 9.6 oz Physical Exam Narrative: Narrative CONSTITUTIONAL: Alert and oriented x 3 HEENT: Normocephalic, atraumatic.[] RESPIRATORY:? Has bilateral mild crackles CARDIOVASCULAR: S1, S2, normal rate and rhythm GI: Soft EXTREMITIES: Has 1+ edema Urinary Catheter Management: Rubio: Cath Placed During This Visit: yes Reason for Continuing Indwelling Catheter: Acute Urinary Retention or Obstruction Urinary Catheter Date of Insertion: 11/22/21 Urinary Catheter Time of Insertion: 14:33 Data : 12/01/21 04:54 12/01/21 04:54 A&P Assessment and plan (1) Aspiration pneumonitis: Status: Acute (2) Acute kidney injury: Status: Acute (3) Cardiac arrest with ventricular fibrillation: Status: Acute (4) Chronic obstructive pulmonary disease: Status: Chronic Qualifiers: COPD type: COPD with acute exacerbation Qualified Code(s): J44.1 - Chronic obstructive pulmonary disease with (acute) exacerbation (5) CHF (congestive heart failure): Status: Acute (6) Hypertension: Status: Chronic Plan Patient had ventricular fibrillation requiring defibrillation with shock x1. She again had nonsustained VT. She has new onset congestive heart failure. No known coronary artery disease history. Coronary angiogram showed severe distal RCA stenosis that underwent successful revascularization with RATNA X1 . Renal function is stable ICD placed yesterday for secondary prevention Continue aspirin and plavix for atleast 1 year Continue Lasix. Can switch to PO lasix at time of discharge ECHO shows EF of 30%. Thank you for involving us with care of this patient. We will continue to follow. Attestations Medical Necessity Statement*: Care expected to cross 2 midnights. Coding Level of Care Code Acute Coffee Machine Technician for [facility] Fwd Diagnoses Aspiration pneumonitis J69.0 Acute kidney injury N17.9 Cardiac arrest with ventricular fibrillation I46.9; I49.01 Chronic obstructive pulmonary disease J44.1 COPD type: COPD with acute exacerbation CHF (congestive heart failure) I50.9 Hypertension I10
[2021-11-30] MEDS: fluticasone nasal spray 16gm Btl 2 SPRAY NASAL ×2 (10:37→17:31)
[2021-11-30] MEDS: ALPRAZolam 0.5 mg Tablet 0.25 MG PO (10:37)
--- NOTE | 2021-11-30 11:18 | PM.PN ---
Subjective Subjective: Patient was seen and examined, this morning, was complaining of sob, as well as nasal congestion and anxiety, was not able to sleep properly last night , pain at AICD Placement site. Xray chest done yesterday has shown Pulmonary vascular congestion. as well as slightly worsening of bilateral pleural effusion, will give her additional dose of Lasix 40 i.v today. Medications: Medication Review Details: Generic Name Dose Route Start Last Admin Trade Name Freq PRN Reason Stop Dose Admin Acetaminophen 650 mg 11/22/21 17:04 11/26/21 04:15 Acetaminophen 32 5 Mg Tablet PO 650 mg Q6H PRN Administration Mild/Mod Pain Or Temp >/= 101 Albuterol/Ipratrop ium 3 ml 11/22/21 17:04 11/25/21 06:32 Ipratropium-Albu terol 3 Ml Neb INHALATION 3 ml Q6H PRN Administration SHORTNESS OF MARK TH Alprazolam 0.25 mg 11/24/21 16:53 11/26/21 06:44 Alprazolam 0.5 M g Tablet PO 0.25 mg TID PRN Administration ANXIETY Amiodarone HCl 200 mg 11/24/21 18:00 11/27/21 08:28 Amiodarone 200 M g Tablet PO 200 mg BID JOHN Administration Aspirin 81 mg 11/23/21 09:00 11/27/21 08:28 Aspirin 81 Mg Ec Tablet PO 81 mg DAILY JOHN Administration Atorvastatin Calci um 40 mg 11/24/21 21:00 11/26/21 20:17 Atorvastatin 40 Mg Tablet PO 40 mg BEDTIME JOHN Administration Budesonide 0.5 mg 11/22/21 20:00 11/27/21 08:02 Budesonide 0.5 M g/2 Ml Neb INHALATION 0.5 mg BID.RESPIRATORY S CH Administration Clopidogrel Bisulf ate 75 mg 11/25/21 09:45 11/27/21 08:29 Clopidogrel 75 M g Tablet PO 75 mg DAILY JOHN Administration Docusate Sodium 100 mg 11/22/21 18:00 11/27/21 08:27 Docusate Sodium 100 Mg Capsule PO 100 mg BID JOHN Administration Enoxaparin Sodium 40 mg 11/25/21 12:00 11/26/21 13:08 Enoxaparin 40 Mg /0.4 Ml Syringe SUBCUT 40 mg Q24H JOHN Administration Ferrous Gluconate 324 mg 11/23/21 18:00 11/27/21 08:28 Ferrous Gluconat e 324 Mg Tablet PO 324 mg BIDWM JOHN Administration Fluticasone Propio meliza 1 spray 11/25/21 00:11 11/25/21 00:52 Fluticasone [place] l [place] 16gm Btl NASAL 1 spray BID PRN Administration NASAL CONGESTION Furosemide 40 mg 11/26/21 18:00 11/27/21 08:29 Furosemide 10 Mg /Ml Sdv 4ml IVP 40 mg BID JOHN Administration Piperacillin Sod/T azobactam 100 mls @ 25 mls/ hr 11/24/21 20:15 11/27/21 03:37 Sod 3.375 gm/ So dium Chloride IV 25 mls/hr Q8H JOHN Administration Ipratropium Bromid e 0.5 mg 11/25/21 12:00 11/27/21 08:02 Ipratropium 0.5 Mg/2.5 Ml Neb INHALATION 0.5 mg QID.RESPIRATORY S CH Administration Levalbuterol HCl 1.25 mg 11/25/21 12:00 11/27/21 08:02 Levalbuterol 1.2 5 Mg/3 Ml Neb INHALATION 1.25 mg QID.RESPIRATORY S CH Administration Lidocaine 1 patch 11/25/21 13:45 11/27/21 08:29 Lidocaine 5% Pat ch TOPICAL 1 patch [id number] JOHN Administration Magnesium Oxide 400 mg 11/25/21 18:00 11/27/21 08:28 Magnesium Oxide 400 Mg Tablet PO 400 mg BID JOHN Administration Metoprolol Tartrat e 25 mg 11/25/21 11:30 11/27/21 08:29 Metoprolol Tartr ate 25 Mg Tablet PO 25 mg BID@0900,2100 JOHN Administration Morphine Sulfate 1 mg 11/26/21 10:16 11/26/21 16:25 Morphine 4 Mg/Ml Sdv 1 Ml IVP 1 mg Q4H PRN Administration SEVERE PAIN Nicotine 1 patch 11/26/21 09:00 11/27/21 08:29 Nicotine 21 Mg P atch TRANSDERMA 1 patch DAILY JOHN Administration Pantoprazole Sodiu m 40 mg 11/23/21 09:00 11/27/21 08:[address] 40 Mg Tablet PO 40 mg DAILY JOHN Administration Prednisone 40 mg 11/27/21 09:00 11/27/21 08:29 Prednisone 20 Mg Tablet PO 40 mg DAILY JOHN Administration Sucralfate 1 gm 11/25/21 11:00 11/27/21 10:56 Sucralfate 1 Gm Tablet PO 1 gm AC&BEDTIME JOHN Administration Tramadol HCl 50 mg 11/22/21 17:04 11/26/21 00:34 Tramadol 50 Mg T ablet PO 50 mg Q6H PRN Administration MODERATE TO SEVER E PAIN Vitals/I&O/Wt Last Vital Signs Temp 98.1 F 11/30/21 07:17 Pulse 74 11/30/21 07:52 Resp 20 H 11/30/21 07:43 BP 136/70 11/30/21 07:17 Pulse Ox 90 11/30/21 07:43 11/29/21 11/30/21 11/30/21 22:59 06:59 14:59 Intake Total 680 / 730 750 / 1480 770 / 770 Output Total 5 / 5 300 / 305 600 / 600 Balance 675 / 725 450 / 1175 170 / 170 Weight last 48 hrs Weight 83.325 kg Weight 85.548 kg Physical Exam Const: COMMON NORMALS: patient oriented x3 HENMT: COMMON NORMALS: normocephalic and atraumatic HEAD & SCALP: normocephalic and atraumatic Eye: GENERAL EYE: appearance normal, both eyes and all related structures Chest: COMMONS NORMALS: normal inspection of the chest and normal palpation of entire chest wall CHEST: Yes Symmetrical chest wall rise Resp: COMMON NORMALS: normal respiratory effort, No retractions and No use of accessory muscles EFFORT & INSPECTION: Yes symmetric chest movement OTHER: Diminished air entry bilaterally predominantly at bases. Cardio: COMMON NORMALS: regular rate, regular rhythm, S1 normal heart sound present, S2 normal heart sound present, No gallops present (Cardio), No murmurs present (Cardio), No rub (Cardio) and Peripheral pulses 2+ throughout RATE: regular rate RHYTHM: regular rhythm HEART SOUNDS: S1 normal heart sound present and S2 normal heart sound present PERIPHERAL PULSES: Peripheral pulses 2+ throughout GI: COMMON NORMALS: Normal to inspection, nondistended, normoactive bowel sounds present, Soft to palpation, non-tender, No hepatosplenomegaly present and no masses AUSCULTATION: Yes normoactive bowel sounds PALPATION: Yes Soft to palpation and Yes No hepatosplenomegaly present RECTAL EXAM: deferred Extremity: COMMON NORMALS: no clubbing, cyanosis or edema and no pedal edema Neuro: COMMON NORMALS: patient oriented x3 Urinary Catheter Management: Rubio: Cath Placed During This Visit: yes Reason for Continuing Indwelling Catheter: Acute Urinary Retention or Obstruction Urinary Catheter Date of Insertion: 11/22/21 Urinary Catheter Time of Insertion: 14:33 Data : 11/30/21 05:45 11/30/21 05:45 A&P Assessment and plan (1) Cardiac arrest with successful resuscitation: Ice pad, Lidocaine patch. Will avoid ibuprofen, NSAIDs, oxy as patient allergic. Status: Acute (2) Cardiac arrest with ventricular fibrillation: Continue with amiodarone 200 mg twice daily. Underwent CAG yesterday and PCI to RCA. Will need ICD for secondary prevention. Keep potassium around 4, magnesium over 2. Will monitor QTC. Troponin slightly elevated most likely post CPR. Switch to PPx dose of lovenox. Continue with aspirin 81 mg daily, Atorvastatin 40 mg oral daily. A1c 5.6. Status: Acute (3) CAD (coronary artery disease): Post PCI to RCA. C/w ASA, plavix, statin. Chest pain free. ECHO appreciated. Status: Acute (4) CHF (congestive heart failure): Echocardiogram shows an EF of 30% with global LV hypokinesia and dilatation, normal RV size, mild to trace mitral regurgitation, moderate aortic valve regurgitation, trace TR. Congestive heart failure systolic type. Strict input for charting, daily weights. Gentle IV diuresis. IV lasix 40 daily. Start on metoprolol 25 mg BID. Will initiate heart failure medications including LOBO inhibitor, spironolactone. Status: Acute (5) Chronic obstructive pulmonary disease: Switch DuoNeb to Ipratropium and xoponex QID, budesonide twice daily. Wean off Solu-Medrol to 40 mg IV daily. Post CPR there is a concern for possible aspiration pneumonia versus pneumonitis. Continue with Zosyn. MRSA swab negative, sputum culture awaited. Incentive spirometry. Status: Chronic Qualifiers: COPD type: COPD with acute exacerbation Qualified Code(s): J44.1 - Chronic obstructive pulmonary disease with (acute) exacerbation (6) Acute kidney injury: Most likely secondary to aggressive diuresis and slightly vascular depleted, Lasix na?ve patient. Creatinine improving. Creat 1.3 today. Medical reconciliation done for nephrotoxic drugs. Hold off on LOBO inhibitor for now. We will restart diuresis at a lower rate at 40 mg daily today. Monitor BMP daily. Status: Acute (7) Aspiration pneumonitis: Status: Acute (8) Hypertension: Goal blood pressure less than 140/90 mmHg. Start on metoprolol today. Will add ACEi as per creatinine accordingly. Status: Chronic (9) Nicotine dependence, cigarettes, with other nicotine-induced disorders: ~60 pack year history, does express interest in wanting to quit, has tried many times unsuccessfully really making it more than a couple of days Nicotine patch if needed Encouraged repeated attempts at smoking cessation Status: Chronic Plan 76-year-old female with past medical history of COPD hypertension , chronic smoker , initially brought in with chief complaint of shortness of breath, hospital course has been complicated, found to have new diagnosis of Heart failure with reduced ejection fraction, coronary artery disease s/p PCI to RCA, s/p V. fib arrest during the hospital stay. Assessment: Status post V. fib arrest: 1 round of CPR, 1 epi and one-time defibrillation, achievement of ROSC. Post ROSC patient was in A. fib, for which was started on amiodarone drip, currently on p.o. amiodarone. Status post AICD placement #coronary artery disease: s/p PCI to RCA Continue aspirin , Plavix , statin, beta-virgilio # Heart failure with reduced ejection fraction : 20 echo:Mildly dilated left ventricular cavity size. Moderately ?decreased left ventricular systolic function. Left ventricular ejection fraction is estimated at 30 %. Global left ventricular ?hypokinesis. Abnormal septal motion. Normal right ventricular size and systolic function. Aortic valve sclerosis with no stenosis. Moderate aortic valve regurgitation. Continue Lasix 40 mg IV daily Lisinopril 5 mg p.o. daily Continue beta-virgilio Intake output charting k>4,mg>2 She will also need to be on spironlactone #COPD: Continue duo nebs Solu-Medrol 40 IV daily Supplemental oxygen as needed #Bilateral small pleural effusion: Likely secondary to decompensated heart failure, less likely pneumonia. Ultrasound chest: Small bilateral pleural effusions with atelectatic mobile lung within the fluid She was on Zosyn initially for possible aspiration pneumonia during the code Antibiotic has been narrowed down to ceftriaxone. #Hypertension: Lisinopril 5 mg p.o. daily #Disposition: Patient [place] likely need [place] [facility] given her significant comorbidities, and overall functional status. Full code. Cardiac diet. Lovenox for DVTprophylaxis. Protonix for PUD prophylaxis. Attestations Medical Necessity Statement*: Patient needs to in hospital for management of decompensated heart failure, need for IV diuresis Time Spent in Patient Care: Greater than 35 minutes (>than 50% of time spent in counselling and/or direct pt care on unit). Coding Level of Care Code Acute Finance Consultant for [facility] Fwd Exam Comprehensive Diagnoses Cardiac arrest with successful resuscitation I46.9 Cardiac arrest with ventricular fibrillation I46.9; I49.01 CAD (coronary artery disease) I25.10 CHF (congestive heart failure) I50.9 Chronic obstructive pulmonary disease J44.1 COPD type: COPD with acute exacerbation Acute kidney injury N17.9 Aspiration pneumonitis J69.0 Hypertension I10 Nicotine dependence, cigarettes, with other nicotine-induced disorders F17.218
[2021-11-30] MEDS: atorvastatin 40 mg Tablet PO (21:01)
[2021-12-01] VITALS (15 sets, daily range): BP systolic 121–150; BP diastolic 58–71; PULSE 64–77; RESP 16–24; TEMP 36.3–36.8; O2SAT 91–98
[2021-12-01] MEDS: FUROsemide 10 mg/mL SDV 4mL 40 MG IVP (05:47)
[2021-12-01] MEDS: sucralfate 1 gm Tablet PO ×4 (05:48→20:33)
[2021-12-01 05:57] LABS: Basophils % 0.1 %; Eosinophils # 0.1 10^3/uL (0.0-0.8); Eosinophils % 0.5 %; Hematocrit 41.7 % (37.0-47.0); Hemoglobin 12.8 g/dL (11.5-15.3); Lymphocytes # 0.8 10^3/uL (0.8-4.8); Lymphocytes % 7.4 %; Mean Corpuscular HGB Conc 30.7 g/dL (30.0-36.0); Mean Corpuscular Hemoglobin 29.2 pg (28.0-34.0); Mean Corpuscular Volume 95.2 fl (81-99); Mean Platelet Volume 11.4 fL (7.4-10.4); Monocytes # 0.8 10^3/uL (0.2-0.9); Monocytes % 7.1 %; Neutrophils # 9.17 10^3/uL (1.8-7.7); Neutrophils % 84.1 %; Nucleated Red Blood Cells % 0 %; Platelet Count 183 10^3/cmm (130-400); Red Blood Count 4.38 10^6/uL (4.1-5.3); Red Cell Distribution Width 15.3 % (12.1-15.1); White Blood Count 10.9 10^3/uL (4.0-10.0)
[2021-12-01 06:25] LABS: Blood Urea Nitrogen 31 mg/dL (8-23); Calcium 7.8 mg/dL (8.5-10.5); Carbon Dioxide 33 mmol/L (22-29); Chloride 95 mmol/L (98-107); Glucose 108 mg/dL (65-115); Osmolality Calculated 287 mOsm/kg (285-295); Sodium 135 mmol/L (136-145)
[2021-12-01 06:26] LABS: Anion Gap 10.4 (5-19); Potassium 3.4 mmol/L (3.5-5.1)
[2021-12-01] MEDS: levalbuterol 1.25 mg/3 mL Neb INHALATION ×3 (07:52→20:04)
[2021-12-01] MEDS: ipratropium 0.5 mg/2.5 mL Neb INHALATION ×3 (07:52→20:04)
[2021-12-01] MEDS: budesonide 0.5 mg/2 mL Neb INHALATION ×2 (07:52→20:04)
--- NOTE | 2021-12-01 08:34 | PM.PN ---
Subjective Subjective: Patient is feeling well. Still has high O2 requirement and was on 5-7L O2. Vitals/I&O/Wt Last Vital Signs Temp 97.4 F L 12/01/21 08:00 Pulse 74 12/01/21 08:00 Resp 16 12/01/21 08:00 BP 150/70 12/01/21 08:00 Pulse Ox 92 12/01/21 08:00 11/30/21 12/01/21 12/01/21 22:59 06:59 14:59 Intake Total 480 / 1490 650 / 2140 Output Total 150 / 1350 300 / 1650 Balance 330 / 140 350 / 490 Weight last 48 hrs Weight 183 lb 12.8 oz Weight 183 lb 11.2 oz Physical Exam Narrative: CONSTITUTIONAL: Alert and oriented x 3 HEENT: Normocephalic, atraumatic.[] RESPIRATORY:? Has bilateral mild crackles CARDIOVASCULAR: S1, S2, normal rate and rhythm GI: Soft EXTREMITIES: Has 1+ edema Urinary Catheter Management: Rubio: Cath Placed During This Visit: yes Reason for Continuing Indwelling Catheter: Acute Urinary Retention or Obstruction Urinary Catheter Date of Insertion: 11/22/21 Urinary Catheter Time of Insertion: 14:33 Data : 12/01/21 04:54 12/01/21 04:54 A&P Assessment and plan (1) Aspiration pneumonitis: Status: Acute (2) Acute kidney injury: Status: Acute (3) Cardiac arrest with ventricular fibrillation: Status: Acute (4) Chronic obstructive pulmonary disease: Status: Chronic Qualifiers: COPD type: COPD with acute exacerbation Qualified Code(s): J44.1 - Chronic obstructive pulmonary disease with (acute) exacerbation (5) CHF (congestive heart failure): Status: Acute (6) Hypertension: Status: Chronic Plan Patient had ventricular fibrillation requiring defibrillation with shock x1. She again had nonsustained VT. She has new onset congestive heart failure. No known coronary artery disease history. Coronary angiogram showed severe distal RCA stenosis that underwent successful revascularization with RATNA X1 . Renal function is stable. Continue IV lasix for now. O 2 requirement is still high and had small pleural effusions. Close I and Os. ICD placed for secondary prevention as had Vfib arrest and cardiomyopathy not explained by RCA stenosis. Continue aspirin and plavix for atleast 1 year ECHO shows EF of 30%. Thank you for involving us with care of this patient. We will continue to follow. Attestations Medical Necessity Statement*: Care expected to cross 2 midnights. 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
[2021-12-01] MEDS: aspirin 81 mg EC Tablet PO (08:38)
[2021-12-01] MEDS: amiodarone 200 mg Tablet PO ×2 (08:38→17:02)
[2021-12-01] MEDS: nicotine 21 mg Patch 1 PATCH TRANSDERMA (08:38)
[2021-12-01] MEDS: docusate sodium 100 mg Capsule PO ×2 (08:39→17:02)
[2021-12-01] MEDS: magnesium oxide 400 mg tablet PO ×2 (08:39→17:02)
[2021-12-01] MEDS: lisinopril 5 mg Tablet PO (08:39)
[2021-12-01] MEDS: ferrous gluconate 324 mg Tablet PO ×2 (08:39→17:01)
[2021-12-01] MEDS: pantoprazole DR 40 mg Tablet PO (08:39)
[2021-12-01] MEDS: cefTRIAXone 1,000 MG in sodium chloride 0.9% (plus) 50 ML 100 MG IV (08:46)
[2021-12-01] MEDS: lidocaine 5% Patch 1 PATCH TOPICAL (08:47)
[2021-12-01] MEDS: metoprolol tartrate 25 mg Tablet PO ×2 (08:47→20:33)
[2021-12-01] MEDS: fluticasone nasal spray 16gm Btl 2 SPRAY NASAL ×2 (08:49→17:02)
--- NOTE | 2021-12-01 10:10 | PC.SOCIAL ---
IMM update IMM updated with patient. Copy Pg 2 provided. Verbalized an understanding. Initialled, dated, timed, and placed in chart.
[2021-12-01] MEDS: lidocaine 1% 5 ML in potassium chloride premix 100 ML 25 ML IV (11:24)
--- NOTE | 2021-12-01 15:58 | PM.PN ---
Subjective Subjective: Patient was seen and examined, this morning, progressively improving, currently requiring 5 to 7 Ls of oxygen, working with physical therapy. Medications: Medication Review Details: Generic Name Dose Route Start Last Admin Trade Name Ericq PRN Reason Stop Dose Admin Acetaminophen 650 mg 11/22/21 17:04 11/26/21 04:15 Acetaminophen 32 5 Mg Tablet PO 650 mg Q6H PRN Administration Mild/Mod Pain Or Temp >/= 101 Albuterol/Ipratrop ium 3 ml 11/22/21 17:04 11/25/21 06:32 Ipratropium-Albu terol 3 Ml Neb INHALATION 3 ml Q6H PRN Administration SHORTNESS OF MARK TH Alprazolam 0.25 mg 11/24/21 16:53 11/26/21 06:44 Alprazolam 0.5 M g Tablet PO 0.25 mg TID PRN Administration ANXIETY Amiodarone HCl 200 mg 11/24/21 18:00 11/27/21 08:28 Amiodarone 200 M g Tablet PO 200 mg BID JOHN Administration Aspirin 81 mg 11/23/21 09:00 11/27/21 08:28 Aspirin 81 Mg Ec Tablet PO 81 mg DAILY JOHN Administration Atorvastatin Calci um 40 mg 11/24/21 21:00 11/26/21 20:17 Atorvastatin 40 Mg Tablet PO 40 mg BEDTIME JOHN Administration Budesonide 0.5 mg 11/22/21 20:00 11/27/21 08:02 Budesonide 0.5 M g/2 Ml Neb INHALATION 0.5 mg BID.RESPIRATORY S CH Administration Clopidogrel Bisulf ate 75 mg 11/25/21 09:45 11/27/21 08:29 Clopidogrel 75 M g Tablet PO 75 mg DAILY JOHN Administration Docusate Sodium 100 mg 11/22/21 18:00 11/27/21 08:27 Docusate Sodium 100 Mg Capsule PO 100 mg BID JOHN Administration Enoxaparin Sodium 40 mg 11/25/21 12:00 11/26/21 13:08 Enoxaparin 40 Mg /0.4 Ml Syringe SUBCUT 40 mg Q24H JOHN Administration Ferrous Gluconate 324 mg 11/23/21 18:00 11/27/21 08:28 Ferrous Gluconat e 324 Mg Tablet PO 324 mg BIDWM JOHN Administration Fluticasone Propio meliza 1 spray 11/25/21 00:11 11/25/21 00:52 Fluticasone [place] 16gm Btl NASAL 1 spray BID PRN Administration NASAL CONGESTION Furosemide 40 mg 11/26/21 18:00 11/27/21 08:29 Furosemide 10 Mg /Ml Sdv 4ml IVP 40 mg BID JOHN Administration Piperacillin Sod/T azobactam 100 mls @ 25 mls/ hr 11/24/21 20:15 11/27/21 03:37 Sod 3.375 gm/ So dium Chloride IV 25 mls/hr Q8H JOHN Administration Ipratropium Bromid e 0.5 mg 11/25/21 12:00 11/27/21 08:02 Ipratropium 0.5 Mg/2.5 Ml Neb INHALATION 0.5 mg QID.RESPIRATORY S CH Administration Levalbuterol HCl 1.25 mg 11/25/21 12:00 11/27/21 08:02 Levalbuterol 1.2 5 Mg/3 Ml Neb INHALATION 1.25 mg QID.RESPIRATORY S CH Administration Lidocaine 1 patch 11/25/21 13:45 11/27/21 08:29 Lidocaine 5% Pat ch TOPICAL 1 patch [id number] JOHN Administration Magnesium Oxide 400 mg 11/25/21 18:00 11/27/21 08:28 Magnesium Oxide 400 Mg Tablet PO 400 mg BID JOHN Administration Metoprolol Tartrat e 25 mg 11/25/21 11:30 11/27/21 08:29 Metoprolol Tartr ate 25 Mg Tablet PO 25 mg BID@0900,2100 JOHN Administration Morphine Sulfate 1 mg 11/26/21 10:16 11/26/21 16:25 Morphine 4 Mg/Ml Sdv 1 Ml IVP 1 mg Q4H PRN Administration SEVERE PAIN Nicotine 1 patch 11/26/21 09:00 11/27/21 08:29 Nicotine 21 Mg P atch TRANSDERMA 1 patch DAILY JOHN Administration Pantoprazole Sodiu m 40 mg 11/23/21 09:00 11/27/21 08:[address] 40 Mg Tablet PO 40 mg DAILY JOHN Administration Prednisone 40 mg 11/27/21 09:00 11/27/21 08:29 Prednisone 20 Mg Tablet PO 40 mg DAILY JOHN Administration Sucralfate 1 gm 11/25/21 11:00 11/27/21 10:56 Sucralfate 1 Gm Tablet PO 1 gm AC&BEDTIME JOHN Administration Tramadol HCl 50 mg 11/22/21 17:04 11/26/21 00:34 Tramadol 50 Mg T ablet PO 50 mg Q6H PRN Administration MODERATE TO SEVER E PAIN Vitals/I&O/Wt Last Vital Signs Temp 97.6 F 12/01/21 12:00 Pulse 71 12/01/21 15:55 Resp 16 12/01/21 15:55 BP 147/71 12/01/21 12:00 Pulse Ox 93 12/01/21 15:55 12/01/21 12/01/21 12/01/21 06:59 14:59 22:59 Intake Total 650 / 2140 290 / 290 Output Total 300 / 1650 800 / 800 Balance 350 / 490 -510 / -510 Weight last 48 hrs Weight 83.37 kg Weight 83.325 kg Physical Exam Const: COMMON NORMALS: patient oriented x3 HENMT: COMMON NORMALS: normocephalic and atraumatic HEAD & SCALP: normocephalic and atraumatic Eye: GENERAL EYE: appearance normal, both eyes and all related structures Chest: COMMONS NORMALS: normal inspection of the chest and normal palpation of entire chest wall CHEST: Yes Symmetrical chest wall rise Resp: COMMON NORMALS: normal respiratory effort, No retractions and No use of accessory muscles EFFORT & INSPECTION: Yes symmetric chest movement OTHER: Diminished air entry bilaterally predominantly at bases. Cardio: COMMON NORMALS: regular rate, regular rhythm, S1 normal heart sound present, S2 normal heart sound present, No gallops present (Cardio), No murmurs present (Cardio), No rub (Cardio) and Peripheral pulses 2+ throughout RATE: regular rate RHYTHM: regular rhythm HEART SOUNDS: S1 normal heart sound present and S2 normal heart sound present PERIPHERAL PULSES: Peripheral pulses 2+ throughout GI: COMMON NORMALS: Normal to inspection, nondistended, normoactive bowel sounds present, Soft to palpation, non-tender, No hepatosplenomegaly present and no masses AUSCULTATION: Yes normoactive bowel sounds PALPATION: Yes Soft to palpation and Yes No hepatosplenomegaly present RECTAL EXAM: deferred Extremity: COMMON NORMALS: no clubbing, cyanosis or edema and no pedal edema Neuro: COMMON NORMALS: patient oriented x3 Urinary Catheter Management: Rubio: Cath Placed During This Visit: yes Reason for Continuing Indwelling Catheter: Acute Urinary Retention or Obstruction Urinary Catheter Date of Insertion: 11/22/21 Urinary Catheter Time of Insertion: 14:33 Data : 12/01/21 04:54 12/01/21 04:54 A&P Assessment and plan (1) Cardiac arrest with successful resuscitation: Ice pad, Lidocaine patch. Will avoid ibuprofen, NSAIDs, oxy as patient allergic. Status: Acute (2) Cardiac arrest with ventricular fibrillation: Continue with amiodarone 200 mg twice daily. Underwent CAG yesterday and PCI to RCA. Will need ICD for secondary prevention. Keep potassium around 4, magnesium over 2. Will monitor QTC. Troponin slightly elevated most likely post CPR. Switch to PPx dose of lovenox. Continue with aspirin 81 mg daily, Atorvastatin 40 mg oral daily. A1c 5.6. Status: Acute (3) CAD (coronary artery disease): Post PCI to RCA. C/w ASA, plavix, statin. Chest pain free. ECHO appreciated. Status: Acute (4) CHF (congestive heart failure): Echocardiogram shows an EF of 30% with global LV hypokinesia and dilatation, normal RV size, mild to trace mitral regurgitation, moderate aortic valve regurgitation, trace TR. Congestive heart failure systolic type. Strict input for charting, daily weights. Gentle IV diuresis. IV lasix 40 daily. Start on metoprolol 25 mg BID. Will initiate heart failure medications including LOBO inhibitor, spironolactone. Status: Acute (5) Chronic obstructive pulmonary disease: Switch DuoNeb to Ipratropium and xoponex QID, budesonide twice daily. Wean off Solu-Medrol to 40 mg IV daily. Post CPR there is a concern for possible aspiration pneumonia versus pneumonitis. Continue with Zosyn. MRSA swab negative, sputum culture awaited. Incentive spirometry. Status: Chronic Qualifiers: COPD type: COPD with acute exacerbation Qualified Code(s): J44.1 - Chronic obstructive pulmonary disease with (acute) exacerbation (6) Acute kidney injury: Most likely secondary to aggressive diuresis and slightly vascular depleted, Lasix na?ve patient. Creatinine improving. Creat 1.3 today. Medical reconciliation done for nephrotoxic drugs. Hold off on LOBO inhibitor for now. We will restart diuresis at a lower rate at 40 mg daily today. Monitor BMP daily. Status: Acute (7) Aspiration pneumonitis: Status: Acute (8) Hypertension: Goal blood pressure less than 140/90 mmHg. Start on metoprolol today. Will add ACEi as per creatinine accordingly. Status: Chronic (9) Nicotine dependence, cigarettes, with other nicotine-induced disorders: ~60 pack year history, does express interest in wanting to quit, has tried many times unsuccessfully really making it more than a couple of days Nicotine patch if needed Encouraged repeated attempts at smoking cessation Status: Chronic Plan 76-year-old female with past medical history of COPD hypertension , chronic smoker , initially brought in with chief complaint of shortness of breath, hospital course has been complicated, found to have new diagnosis of Heart failure with reduced ejection fraction, coronary artery disease s/p PCI to RCA, s/p V. fib arrest during the hospital stay. Assessment: Status post V. fib arrest: 1 round of CPR, 1 epi and one-time defibrillation, achievement of ROSC. Post ROSC patient was in A. fib, for which was started on amiodarone drip, currently on p.o. amiodarone. Status post AICD placement #coronary artery disease: s/p PCI to RCA Continue aspirin , Plavix , statin, beta-virgilio # Heart failure with reduced ejection fraction : 20 echo:Mildly dilated left ventricular cavity size. Moderately ?decreased left ventricular systolic function. Left ventricular ejection fraction is estimated at 30 %. Global left ventricular ?hypokinesis. Abnormal septal motion. Normal right ventricular size and systolic function. Aortic valve sclerosis with no stenosis. Moderate aortic valve regurgitation. Continue Lasix 40 mg IV daily Lisinopril 5 mg p.o. daily Continue beta-virgilio Intake output charting k>4,mg>2 She will also need to be on spironlactone #COPD: Continue duo nebs Solu-Medrol 40 IV daily Supplemental oxygen as needed #Bilateral small pleural effusion: Likely secondary to decompensated heart failure, less likely pneumonia. Ultrasound chest: Small bilateral pleural effusions with atelectatic mobile lung within the fluid She was on Zosyn initially for possible aspiration pneumonia during the code Antibiotic has been narrowed down to ceftriaxone. #Hypertension: Lisinopril 5 mg p.o. daily #Disposition: Patient will likely need residential placement given her significant comorbidities, and overall functional status. Full code. Cardiac diet. Lovenox for DVTprophylaxis. Protonix for PUD prophylaxis. Attestations Medical Necessity Statement*: Patient is to be in hospital for management of decompensated heart failure Time Spent in Patient Care: Greater than 35 minutes (>than 50% of time spent in counselling and/or direct pt care on unit). 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
[2021-12-01] MEDS: chlorhexidine gluconate 4% Btl 118 mL 1 APPLIC TOPICAL (17:02)
[2021-12-01] MEDS: atorvastatin 40 mg Tablet PO (20:33)
[2021-12-02] VITALS (15 sets, daily range): BP systolic 115–150; BP diastolic 55–72; PULSE 59–75; RESP 15–20; TEMP 36.4–36.9; O2SAT 92–97
[2021-12-02] MEDS: ipratropium-albuterol 3 mL Neb INHALATION (02:30)
--- NOTE | 2021-12-02 05:18 | PC.NURSE ---
Patient has had a complaints of shortness of breath and respirations at 24rpm. This nurse called respiratory and the respiratory therapist had given a breathing treatment. Patient stated that she feels like it did help her breathing. Other vitals are stable. No other complaints were voiced to staff
[2021-12-02] MEDS: FUROsemide 10 mg/mL SDV 4mL 40 MG IVP (06:05)
[2021-12-02] MEDS: sucralfate 1 gm Tablet PO ×4 (06:06→20:26)
[2021-12-02] MEDS: ipratropium 0.5 mg/2.5 mL Neb INHALATION ×3 (07:14→16:39)
[2021-12-02] MEDS: budesonide 0.5 mg/2 mL Neb INHALATION ×2 (07:14→21:01)
[2021-12-02] MEDS: levalbuterol 1.25 mg/3 mL Neb INHALATION ×4 (07:14→21:01)
[2021-12-02] MEDS: metoprolol tartrate 25 mg Tablet PO ×2 (08:58→20:26)
[2021-12-02] MEDS: amiodarone 200 mg Tablet PO ×2 (08:58→17:37)
[2021-12-02] MEDS: aspirin 81 mg EC Tablet PO (08:58)
[2021-12-02] MEDS: magnesium oxide 400 mg tablet PO ×2 (08:58→17:37)
[2021-12-02] MEDS: ferrous gluconate 324 mg Tablet PO ×2 (08:58→17:37)
[2021-12-02] MEDS: pantoprazole DR 40 mg Tablet PO (08:59)
[2021-12-02] MEDS: nicotine 21 mg Patch 1 PATCH TRANSDERMA (08:59)
[2021-12-02] MEDS: lisinopril 5 mg Tablet PO (08:59)
[2021-12-02] MEDS: docusate sodium 100 mg Capsule PO (08:59)
[2021-12-02] MEDS: fluticasone nasal spray 16gm Btl 2 SPRAY NASAL ×2 (09:00→17:38)
[2021-12-02] MEDS: cefTRIAXone 1,000 MG in sodium chloride 0.9% (plus) 50 ML 50 MG IV (09:01)
[2021-12-02] MEDS: lidocaine 5% Patch 1 PATCH TOPICAL (09:01)
--- NOTE | 2021-12-02 12:49 | PM.PN ---
Subjective Subjective: Patient was seen and examined, this morning, supplemental oxygen requirement is going down, progressively working more with physical therapy, was seen sitting in the chair at, eating lunch. Hypokalemia correction undertaken. We will stop IV Solu-Medrol , changed to p.o. prednisone 40 MG daily from tomorrow Will do repeat a.m. chest x-ray, for evaluation of bilateral pleural effusion. Medications: Medication Review Details: Generic Name Dose Route Start Last Admin Trade Name Freq PRN Reason Stop Dose Admin Acetaminophen 650 mg 11/22/21 17:04 11/26/21 04:15 Acetaminophen 32 5 Mg Tablet PO 650 mg Q6H PRN Administration Mild/Mod Pain Or Temp >/= 101 Albuterol/Ipratrop ium 3 ml 11/22/21 17:04 11/25/21 06:32 Ipratropium-Albu terol 3 Ml Neb INHALATION 3 ml Q6H PRN Administration SHORTNESS OF MARK TH Alprazolam 0.25 mg 11/24/21 16:53 11/26/21 06:44 Alprazolam 0.5 M g Tablet PO 0.25 mg TID PRN Administration ANXIETY Amiodarone HCl 200 mg 11/24/21 18:00 11/27/21 08:28 Amiodarone 200 M g Tablet PO 200 mg BID JOHN Administration Aspirin 81 mg 11/23/21 09:00 11/27/21 08:28 Aspirin 81 Mg Ec Tablet PO 81 mg DAILY JOHN Administration Atorvastatin Calci um 40 mg 11/24/21 21:00 11/26/21 20:17 Atorvastatin 40 Mg Tablet PO 40 mg BEDTIME JOHN Administration Budesonide 0.5 mg 11/22/21 20:00 11/27/21 08:02 Budesonide 0.5 M g/2 Ml Neb INHALATION 0.5 mg BID.RESPIRATORY S CH Administration Clopidogrel Bisulf ate 75 mg 11/25/21 09:45 11/27/21 08:29 Clopidogrel 75 M g Tablet PO 75 mg DAILY JOHN Administration Docusate Sodium 100 mg 11/22/21 18:00 11/27/21 08:27 Docusate Sodium 100 Mg Capsule PO 100 mg BID JOHN Administration Enoxaparin Sodium 40 mg 11/25/21 12:00 11/26/21 13:08 Enoxaparin 40 Mg /0.4 Ml Syringe SUBCUT 40 mg Q24H JOHN Administration Ferrous Gluconate 324 mg 11/23/21 18:00 11/27/21 08:28 Ferrous Gluconat e 324 Mg Tablet PO 324 mg BIDWM JOHN Administration Fluticasone Propio meliza 1 spray 11/25/21 00:11 11/25/21 00:52 Fluticasone Nasa l Dupo 16gm Btl NASAL 1 spray BID PRN Administration NASAL CONGESTION Furosemide 40 mg 11/26/21 18:00 11/27/21 08:29 Furosemide 10 Mg /Ml Sdv 4ml IVP 40 mg BID JOHN Administration Piperacillin Sod/T azobactam 100 mls @ 25 mls/ hr 11/24/21 20:15 11/27/21 03:37 Sod 3.375 gm/ So dium Chloride IV 25 mls/hr Q8H JOHN Administration Ipratropium Bromid e 0.5 mg 11/25/21 12:00 11/27/21 08:02 Ipratropium 0.5 Mg/2.5 Ml Neb INHALATION 0.5 mg QID.RESPIRATORY S CH Administration Levalbuterol HCl 1.25 mg 11/25/21 12:00 11/27/21 08:02 Levalbuterol 1.2 5 Mg/3 Ml Neb INHALATION 1.25 mg QID.RESPIRATORY S CH Administration Lidocaine 1 patch 11/25/21 13:45 11/27/21 08:29 Lidocaine 5% Pat ch TOPICAL 1 patch [id number] JOHN Administration Magnesium Oxide 400 mg 11/25/21 18:00 11/27/21 08:28 Magnesium Oxide 400 Mg Tablet PO 400 mg BID JOHN Administration Metoprolol Tartrat e 25 mg 11/25/21 11:30 11/27/21 08:29 Metoprolol Tartr ate 25 Mg Tablet PO 25 mg BID@0900,2100 JOHN Administration Morphine Sulfate 1 mg 11/26/21 10:16 11/26/21 16:25 Morphine 4 Mg/Ml Sdv 1 Ml IVP 1 mg Q4H PRN Administration SEVERE PAIN Nicotine 1 patch 11/26/21 09:00 11/27/21 08:29 Nicotine 21 Mg P atch TRANSDERMA 1 patch DAILY JOHN Administration Pantoprazole Sodiu m 40 mg 11/23/21 09:00 11/27/21 08:[address] 40 Mg Tablet PO 40 mg DAILY JOHN Administration Prednisone 40 mg 11/27/21 09:00 11/27/21 08:29 Prednisone 20 Mg Tablet PO 40 mg DAILY JOHN Administration Sucralfate 1 gm 11/25/21 11:00 11/27/21 10:56 Sucralfate 1 Gm Tablet PO 1 gm AC&BEDTIME JOHN Administration Tramadol HCl 50 mg 11/22/21 17:04 11/26/21 00:34 Tramadol 50 Mg T ablet PO 50 mg Q6H PRN Administration MODERATE TO SEVER E PAIN Vitals/I&O/Wt Last Vital Signs Temp 98.4 F 12/02/21 11:36 Pulse 71 12/02/21 12:04 Resp 16 12/02/21 12:04 BP 115/57 12/02/21 11:36 Pulse Ox 93 12/02/21 12:04 12/01/21 12/02/21 12/02/21 22:59 06:59 14:59 Intake Total 345 / 755 500 / 500 Output Total 625 / 1425 900 / 900 Balance 345 / -45 -625 / -670 -400 / -400 Weight last 48 hrs Weight 86.999 kg Weight 83.37 kg Physical Exam Const: COMMON NORMALS: patient oriented x3 HENMT: COMMON NORMALS: normocephalic and atraumatic HEAD & SCALP: normocephalic and atraumatic Eye: GENERAL EYE: appearance normal, both eyes and all related structures Chest: COMMONS NORMALS: normal inspection of the chest and normal palpation of entire chest wall CHEST: Yes Symmetrical chest wall rise Resp: COMMON NORMALS: normal respiratory effort, No retractions and No use of accessory muscles EFFORT & INSPECTION: Yes symmetric chest movement OTHER: Diminished air entry bilaterally predominantly at bases. Cardio: COMMON NORMALS: regular rate, regular rhythm, S1 normal heart sound present, S2 normal heart sound present, No gallops present (Cardio), No murmurs present (Cardio), No rub (Cardio) and Peripheral pulses 2+ throughout RATE: regular rate RHYTHM: regular rhythm HEART SOUNDS: S1 normal heart sound present and S2 normal heart sound present PERIPHERAL PULSES: Peripheral pulses 2+ throughout GI: COMMON NORMALS: Normal to inspection, nondistended, normoactive bowel sounds present, Soft to palpation, non-tender, No hepatosplenomegaly present and no masses AUSCULTATION: Yes normoactive bowel sounds PALPATION: Yes Soft to palpation and Yes No hepatosplenomegaly present RECTAL EXAM: deferred Extremity: COMMON NORMALS: no clubbing, cyanosis or edema and no pedal edema Neuro: COMMON NORMALS: patient oriented x3 Urinary Catheter Management: Rubio: Cath Placed During This Visit: yes Reason for Continuing Indwelling Catheter: Acute Urinary Retention or Obstruction Urinary Catheter Date of Insertion: 11/22/21 Urinary Catheter Time of Insertion: 14:33 Data : 12/01/21 04:54 12/01/21 04:54 A&P Assessment and plan (1) Cardiac arrest with successful resuscitation: Ice pad, Lidocaine patch. Will avoid ibuprofen, NSAIDs, oxy as patient allergic. Status: Acute (2) Cardiac arrest with ventricular fibrillation: Continue with amiodarone 200 mg twice daily. Underwent CAG yesterday and PCI to RCA. Will need ICD for secondary prevention. Keep potassium around 4, magnesium over 2. Will monitor QTC. Troponin slightly elevated most likely post CPR. Switch to PPx dose of lovenox. Continue with aspirin 81 mg daily, Atorvastatin 40 mg oral daily. A1c 5.6. Status: Acute (3) CAD (coronary artery disease): Post PCI to RCA. C/w ASA, plavix, statin. Chest pain free. ECHO appreciated. Status: Acute (4) CHF (congestive heart failure): Echocardiogram shows an EF of 30% with global LV hypokinesia and dilatation, normal RV size, mild to trace mitral regurgitation, moderate aortic valve regurgitation, trace TR. Congestive heart failure systolic type. Strict input for charting, daily weights. Gentle IV diuresis. IV lasix 40 daily. Start on metoprolol 25 mg BID. Will initiate heart failure medications including LOBO inhibitor, spironolactone. Status: Acute (5) Chronic obstructive pulmonary disease: Switch DuoNeb to Ipratropium and xoponex QID, budesonide twice daily. Wean off Solu-Medrol to 40 mg IV daily. Post CPR there is a concern for possible aspiration pneumonia versus pneumonitis. Continue with Zosyn. MRSA swab negative, sputum culture awaited. Incentive spirometry. Status: Chronic Qualifiers: COPD type: COPD with acute exacerbation Qualified Code(s): J44.1 - Chronic obstructive pulmonary disease with (acute) exacerbation (6) Acute kidney injury: Most likely secondary to aggressive diuresis and slightly vascular depleted, Lasix na?ve patient. Creatinine improving. Creat 1.3 today. Medical reconciliation done for nephrotoxic drugs. Hold off on LOBO inhibitor for now. We will restart diuresis at a lower rate at 40 mg daily today. Monitor BMP daily. Status: Acute (7) Aspiration pneumonitis: Status: Acute (8) Hypertension: Goal blood pressure less than 140/90 mmHg. Start on metoprolol today. Will add ACEi as per creatinine accordingly. Status: Chronic (9) Nicotine dependence, cigarettes, with other nicotine-induced disorders: ~60 pack year history, does express interest in wanting to quit, has tried many times unsuccessfully really making it more than a couple of days Nicotine patch if needed Encouraged repeated attempts at smoking cessation Status: Chronic Plan 76-year-old female with past medical history of COPD hypertension , chronic smoker , initially brought in with chief complaint of shortness of breath, hospital course has been complicated, found to have new diagnosis of Heart failure with reduced ejection fraction, coronary artery disease s/p PCI to RCA, s/p V. fib arrest during the hospital stay. Assessment: Status post V. fib arrest: 1 round of CPR, 1 epi and one-time defibrillation, achievement of ROSC. Post ROSC patient was in A. fib, for which was started on amiodarone drip, currently on p.o. amiodarone. Status post AICD placement #coronary artery disease: s/p PCI to RCA Continue aspirin , Plavix , statin, beta-virgilio # Heart failure with reduced ejection fraction : 20 echo:Mildly dilated left ventricular cavity size. Moderately ?decreased left ventricular systolic function. Left ventricular ejection fraction is estimated at 30 %. Global left ventricular ?hypokinesis. Abnormal septal motion. Normal right ventricular size and systolic function. Aortic valve sclerosis with no stenosis. Moderate aortic valve regurgitation. Continue Lasix 40 mg IV daily Lisinopril 5 mg p.o. daily Continue beta-virgilio Intake output charting k>4,mg>2 She will also need to be on spironlactone #COPD: Continue duo nebs Solu-Medrol 40 IV daily Supplemental oxygen as needed #Bilateral small pleural effusion: Likely secondary to decompensated heart failure, less likely pneumonia. Ultrasound chest: Small bilateral pleural effusions with atelectatic mobile lung within the fluid She was on Zosyn initially for possible aspiration pneumonia during the code Antibiotic has been narrowed down to ceftriaxone. #Hypertension: Lisinopril 5 mg p.o. daily #Disposition: Patient will likely need jail placement given her significant comorbidities, and overall functional status. Full code. Cardiac diet. Lovenox for DVTprophylaxis. Protonix for PUD prophylaxis. Attestations Medical Necessity Statement*: Patient is to be in hospital for management of decompensated heart failure, need for fluid and respiratory status optimization. Time Spent in Patient Care: Greater than 35 minutes (>than 50% of time spent in counselling and/or direct pt care on unit). Coding Level of Care Code Acute [facility] Room Attendant for [facility] Fwd Exam Comprehensive Diagnoses Cardiac arrest with successful resuscitation I46.9 Cardiac arrest with ventricular fibrillation I46.9; I49.01 CAD (coronary artery disease) I25.10 CHF (congestive heart failure) I50.9 Chronic obstructive pulmonary disease J44.1 COPD type: COPD with acute exacerbation Acute kidney injury N17.9 Aspiration pneumonitis J69.0 Hypertension I10 Nicotine dependence, cigarettes, with other nicotine-induced disorders F17.218
[2021-12-02] MEDS: potassium chloride ER 20 mEq Tablet 40 MEQ PO (13:34)
--- NOTE | 2021-12-02 19:28 | PC.NURSE ---
Patient is very upset and tearful about sitting up in chair for extended periods of time. Patient states that she does not mind getting up to the chair because she knows it's good for her but she cannot stay in the chair for long periods of time. Daughter spoke with staff and this nurse over the phone about her mother's wishes and expressed concern over them being ignored or not being passed along to other staff members assuming care of her mother. Daughter appears to be upset about patient being tearful and aggravated. Patient is back in bed and appears to be resting comfortably. Patient did request breathing treatments throughout the night to help her ease of breathing.
[2021-12-02] MEDS: atorvastatin 40 mg Tablet PO (20:26)
[2021-12-02] MEDS: ALPRAZolam 0.5 mg Tablet 0.25 MG PO (20:26)
--- NOTE | 2021-12-02 21:22 | PC.NURSE ---
Respiratory gave patient a breathing treatment before bed. Patient states that she feels like the treatment helped. Patient had requested Xanax before bed to help with anxiety. Patient appears to be resting comfortably and is not voicing any complaints or concerns to staff at this time.
[2021-12-03] VITALS (17 sets, daily range): BP systolic 118–144; BP diastolic 53–75; PULSE 62–73; RESP 16–22; TEMP 36.4–36.9; O2SAT 92–97
[2021-12-03 05:09] LABS: Basophils % 0.2 %; Eosinophils # 0.1 10^3/uL (0.0-0.8); Eosinophils % 0.4 %; Hematocrit 40.5 % (37.0-47.0); Hemoglobin 12.4 g/dL (11.5-15.3); Lymphocytes # 0.9 10^3/uL (0.8-4.8); Lymphocytes % 6.5 %; Mean Corpuscular HGB Conc 30.6 g/dL (30.0-36.0); Mean Corpuscular Volume 94.6 fl (81-99); Mean Platelet Volume 11.1 fL (7.4-10.4); Monocytes # 0.9 10^3/uL (0.2-0.9); Monocytes % 6.3 %; Neutrophils % 85.7 %; Nucleated Red Blood Cells % 0 %; Platelet Count 180 10^3/cmm (130-400); Red Blood Count 4.28 10^6/uL (4.1-5.3); Red Cell Distribution Width 15.4 % (12.1-15.1); White Blood Count 13.9 10^3/uL (4.0-10.0)
[2021-12-03 05:27] LABS: Anion Gap 9.1 (5-19); Blood Urea Nitrogen 28 mg/dL (8-23); Calcium 7.9 mg/dL (8.5-10.5); Carbon Dioxide 33 mmol/L (22-29); Chloride 98 mmol/L (98-107); Glucose 106 mg/dL (65-115); Osmolality Calculated 288 mOsm/kg (285-295); Potassium 4.1 mmol/L (3.5-5.1); Sodium 136 mmol/L (136-145)
[2021-12-03] MEDS: FUROsemide 10 mg/mL SDV 4mL 40 MG IVP (05:52)
[2021-12-03] MEDS: sucralfate 1 gm Tablet PO ×4 (05:52→20:40)
--- NOTE | 2021-12-03 06:00 | XRR_ITS ---
PROCEDURE INFORMATION: Exam: XR Chest Exam date and time: 12/03/2021 5:30 AM Age: 76 years old Clinical indication: Shortness of breath; Prior surgery; Surgery date: 3-7 days post-operative; Patient HX: F/u SOB S/P defibrillator placement on 11/29/2021. TECHNIQUE: Imaging protocol: XR of the chest. Views: 1 view. COMPARISON: CR (CHEST, ) 11/29/2021 4:34 PM FINDINGS: Tubes, catheters and devices: There is an AICD with intact leads in good position. Lungs: Bibasilar opacities which could be secondary to atelectasis or pneumonia. There is enlargement of the pulmonary vascularity. There is thickening of the interstitial markings. Pleural spaces: Small bilateral pleural effusions. No pneumothorax. Heart/Mediastinum: The heart is mildly enlarged. Bones/joints: Unremarkable. Other findings: Multilevel kyphoplasty has been performed. XR/XR chest 1V portable [id number] IMPRESSION: 1. Bibasilar opacities which could be secondary to atelectasis or pneumonia. 2. Congestive heart failure. 3. Small bilateral pleural effusions.
[2021-12-03] MEDS: levalbuterol 1.25 mg/3 mL Neb INHALATION ×2 (08:01→11:44)
[2021-12-03] MEDS: budesonide 0.5 mg/2 mL Neb INHALATION ×2 (08:01→21:18)
[2021-12-03] MEDS: predniSONE 20 mg Tablet 40 MG PO (08:26)
[2021-12-03] MEDS: nicotine 21 mg Patch 1 PATCH TRANSDERMA (08:26)
[2021-12-03] MEDS: magnesium oxide 400 mg tablet PO ×2 (08:26→17:29)
[2021-12-03] MEDS: lisinopril 5 mg Tablet PO (08:26)
[2021-12-03] MEDS: aspirin 81 mg EC Tablet PO (08:27)
[2021-12-03] MEDS: potassium chloride ER 20 mEq Tablet 40 MEQ PO (08:27)
[2021-12-03] MEDS: pantoprazole DR 40 mg Tablet PO (08:28)
[2021-12-03] MEDS: amiodarone 200 mg Tablet PO ×2 (08:28→17:29)
[2021-12-03] MEDS: ferrous gluconate 324 mg Tablet PO ×2 (08:28→17:29)
[2021-12-03] MEDS: metoprolol tartrate 25 mg Tablet PO ×2 (08:28→20:40)
[2021-12-03] MEDS: docusate sodium 100 mg Capsule PO (08:29)
[2021-12-03] MEDS: cefTRIAXone 1,000 MG in sodium chloride 0.9% (plus) 50 ML 100 MG IV (08:29)
[2021-12-03] MEDS: fluticasone nasal spray 16gm Btl 2 SPRAY NASAL ×2 (08:29→17:30)
[2021-12-03] MEDS: lidocaine 5% Patch 1 PATCH TOPICAL (08:29)
--- NOTE | 2021-12-03 10:46 | PC.SOCIAL ---
IMM Updated Updated pt on IMM. No questions voiced. Provided pt a copy. Initialed, dated, & timed copy in chart.
[2021-12-03] MEDS: TRAMadol 50 mg Tablet PO (11:19)
--- NOTE | 2021-12-03 14:54 | PM.PN ---
Subjective Subjective: Patient was seen and examined, this morning, has tenderness at the AICD Site as well in the anterior chest wall, likely due to prior CPR.Am xray chest has shown improvement in the prior B/L Pleural effusion. Medications: Medication Review Details: Generic Name Dose Route Start Last Admin Trade Name Freq PRN Reason Stop Dose Admin Acetaminophen 650 mg 11/22/21 17:04 11/26/21 04:15 Acetaminophen 32 5 Mg Tablet PO 650 mg Q6H PRN Administration Mild/Mod Pain Or Temp >/= 101 Albuterol/Ipratrop ium 3 ml 11/22/21 17:04 11/25/21 06:32 Ipratropium-Albu terol 3 Ml Neb INHALATION 3 ml Q6H PRN Administration SHORTNESS OF MARK TH Alprazolam 0.25 mg 11/24/21 16:53 11/26/21 06:44 Alprazolam 0.5 M g Tablet PO 0.25 mg TID PRN Administration ANXIETY Amiodarone HCl 200 mg 11/24/21 18:00 11/27/21 08:28 Amiodarone 200 M g Tablet PO 200 mg BID JOHN Administration Aspirin 81 mg 11/23/21 09:00 11/27/21 08:28 Aspirin 81 Mg Ec Tablet PO 81 mg DAILY JOHN Administration Atorvastatin Calci um 40 mg 11/24/21 21:00 11/26/21 20:17 Atorvastatin 40 Mg Tablet PO 40 mg BEDTIME JOHN Administration Budesonide 0.5 mg 11/22/21 20:00 11/27/21 08:02 Budesonide 0.5 M g/2 Ml Neb INHALATION 0.5 mg BID.RESPIRATORY S CH Administration Clopidogrel Bisulf ate 75 mg 11/25/21 09:45 11/27/21 08:29 Clopidogrel 75 M g Tablet PO 75 mg DAILY JOHN Administration Docusate Sodium 100 mg 11/22/21 18:00 11/27/21 08:27 Docusate Sodium 100 Mg Capsule PO 100 mg BID JOHN Administration Enoxaparin Sodium 40 mg 11/25/21 12:00 11/26/21 13:08 Enoxaparin 40 Mg /0.4 Ml Syringe SUBCUT 40 mg Q24H JOHN Administration Ferrous Gluconate 324 mg 11/23/21 18:00 11/27/21 08:28 Ferrous Gluconat e 324 Mg Tablet PO 324 mg BIDWM JOHN Administration Fluticasone Propio meliza 1 spray 11/25/21 00:11 11/25/21 00:52 Fluticasone [employer] [place] 16gm Btl NASAL 1 spray BID PRN Administration NASAL CONGESTION Furosemide 40 mg 11/26/21 18:00 11/27/21 08:29 Furosemide 10 Mg /Ml Sdv 4ml IVP 40 mg BID JOHN Administration Piperacillin Sod/T azobactam 100 mls @ 25 mls/ hr 11/24/21 20:15 11/27/21 03:37 Sod 3.375 gm/ So dium Chloride IV 25 mls/hr Q8H JOHN Administration Ipratropium Bromid e 0.5 mg 11/25/21 12:00 11/27/21 08:02 Ipratropium 0.5 Mg/2.5 Ml Neb INHALATION 0.5 mg QID.RESPIRATORY S CH Administration Levalbuterol HCl 1.25 mg 11/25/21 12:00 11/27/21 08:02 Levalbuterol 1.2 5 Mg/3 Ml Neb INHALATION 1.25 mg QID.RESPIRATORY S CH Administration Lidocaine 1 patch 11/25/21 13:45 11/27/21 08:29 Lidocaine 5% Pat ch TOPICAL 1 patch [id number] JOHN Administration Magnesium Oxide 400 mg 11/25/21 18:00 11/27/21 08:28 Magnesium Oxide 400 Mg Tablet PO 400 mg BID JOHN Administration Metoprolol Tartrat e 25 mg 11/25/21 11:30 11/27/21 08:29 Metoprolol Tartr ate 25 Mg Tablet PO 25 mg BID@0900,2100 JOHN Administration Morphine Sulfate 1 mg 11/26/21 10:16 11/26/21 16:25 Morphine 4 Mg/Ml Sdv 1 Ml IVP 1 mg Q4H PRN Administration SEVERE PAIN Nicotine 1 patch 11/26/21 09:00 11/27/21 08:29 Nicotine 21 Mg P atch TRANSDERMA 1 patch DAILY JOHN Administration Pantoprazole Sodiu m 40 mg 11/23/21 09:00 11/27/21 08:[address] 40 Mg Tablet PO 40 mg DAILY JOHN Administration Prednisone 40 mg 11/27/21 09:00 11/27/21 08:29 Prednisone 20 Mg Tablet PO 40 mg DAILY JOHN Administration Sucralfate 1 gm 11/25/21 11:00 11/27/21 10:56 Sucralfate 1 Gm Tablet PO 1 gm AC&BEDTIME JOHN Administration Tramadol HCl 50 mg 11/22/21 17:04 11/26/21 00:34 Tramadol 50 Mg T ablet PO 50 mg Q6H PRN Administration MODERATE TO SEVER E PAIN Vitals/I&O/Wt Last Vital Signs Temp 97.6 F 12/03/21 08:59 Pulse 63 12/03/21 11:49 Resp 18 12/03/21 11:45 BP 135/69 12/03/21 11:45 Pulse Ox 92 12/03/21 11:45 12/02/21 12/03/21 12/03/21 22:59 06:59 14:59 Intake Total 360 / 1100 240 / 1340 530 / 530 Output Total 500 / 1400 Balance 360 / 200 -260 / -60 530 / 530 Weight last 48 hrs Weight 84.005 kg Weight 86.999 kg Physical Exam Const: COMMON NORMALS: patient oriented x3 HENMT: COMMON NORMALS: normocephalic and atraumatic HEAD & SCALP: normocephalic and atraumatic Eye: GENERAL EYE: appearance normal, both eyes and all related structures Chest: COMMONS NORMALS: normal inspection of the chest and normal palpation of entire chest wall CHEST: Yes Symmetrical chest wall rise Resp: COMMON NORMALS: normal respiratory effort, No retractions and No use of accessory muscles EFFORT & INSPECTION: Yes symmetric chest movement OTHER: Diminished air entry bilaterally predominantly at bases. Cardio: COMMON NORMALS: regular rate, regular rhythm, S1 normal heart sound present, S2 normal heart sound present, No gallops present (Cardio), No murmurs present (Cardio), No rub (Cardio) and Peripheral pulses 2+ throughout RATE: regular rate RHYTHM: regular rhythm HEART SOUNDS: S1 normal heart sound present and S2 normal heart sound present PERIPHERAL PULSES: Peripheral pulses 2+ throughout GI: COMMON NORMALS: Normal to inspection, nondistended, normoactive bowel sounds present, Soft to palpation, non-tender, No hepatosplenomegaly present and no masses AUSCULTATION: Yes normoactive bowel sounds PALPATION: Yes Soft to palpation and Yes No hepatosplenomegaly present RECTAL EXAM: deferred Extremity: COMMON NORMALS: no clubbing, cyanosis or edema and no pedal edema Neuro: COMMON NORMALS: patient oriented x3 Urinary Catheter Management: Rubio: Cath Placed During This Visit: yes Reason for Continuing Indwelling Catheter: Other Urinary Catheter Date of Insertion: 11/22/21 Urinary Catheter Time of Insertion: 14:33 Data : 12/03/21 04:57 12/03/21 04:57 A&P Assessment and plan (1) Cardiac arrest with successful resuscitation: Ice pad, Lidocaine patch. Will avoid ibuprofen, NSAIDs, oxy as patient allergic. Status: Acute (2) Cardiac arrest with ventricular fibrillation: Continue with amiodarone 200 mg twice daily. Underwent CAG yesterday and PCI to RCA. Will need ICD for secondary prevention. Keep potassium around 4, magnesium over 2. Will monitor QTC. Troponin slightly elevated most likely post CPR. Switch to PPx dose of lovenox. Continue with aspirin 81 mg daily, Atorvastatin 40 mg oral daily. A1c 5.6. Status: Acute (3) CAD (coronary artery disease): Post PCI to RCA. C/w ASA, plavix, statin. Chest pain free. ECHO appreciated. Status: Acute (4) CHF (congestive heart failure): Echocardiogram shows an EF of 30% with global LV hypokinesia and dilatation, normal RV size, mild to trace mitral regurgitation, moderate aortic valve regurgitation, trace TR. Congestive heart failure systolic type. Strict input for charting, daily weights. Gentle IV diuresis. IV lasix 40 daily. Start on metoprolol 25 mg BID. Will initiate heart failure medications including LOBO inhibitor, spironolactone. Status: Acute (5) Chronic obstructive pulmonary disease: Switch DuoNeb to Ipratropium and xoponex QID, budesonide twice daily. Wean off Solu-Medrol to 40 mg IV daily. Post CPR there is a concern for possible aspiration pneumonia versus pneumonitis. Continue with Zosyn. MRSA swab negative, sputum culture awaited. Incentive spirometry. Status: Chronic Qualifiers: COPD type: COPD with acute exacerbation Qualified Code(s): J44.1 - Chronic obstructive pulmonary disease with (acute) exacerbation (6) Acute kidney injury: Most likely secondary to aggressive diuresis and slightly vascular depleted, Lasix na?ve patient. Creatinine improving. Creat 1.3 today. Medical reconciliation done for nephrotoxic drugs. Hold off on LOBO inhibitor for now. We will restart diuresis at a lower rate at 40 mg daily today. Monitor BMP daily. Status: Acute (7) Aspiration pneumonitis: Status: Acute (8) Hypertension: Goal blood pressure less than 140/90 mmHg. Start on metoprolol today. Will add ACEi as per creatinine accordingly. Status: Chronic (9) Nicotine dependence, cigarettes, with other nicotine-induced disorders: ~60 pack year history, does express interest in wanting to quit, has tried many times unsuccessfully really making it more than a couple of days Nicotine patch if needed Encouraged repeated attempts at smoking cessation Status: Chronic Plan 76-year-old female with past medical history of COPD hypertension , chronic smoker , initially brought in with chief complaint of shortness of breath, hospital course has been complicated, found to have new diagnosis of Heart failure with reduced ejection fraction, coronary artery disease s/p PCI to RCA, s/p V. fib arrest during the hospital stay. Assessment: Status post V. fib arrest: 1 round of CPR, 1 epi and one-time defibrillation, achievement of ROSC. Post ROSC patient was in A. fib, for which was started on amiodarone drip, currently on p.o. amiodarone. Status post AICD placement #coronary artery disease: s/p PCI to RCA Continue aspirin , Plavix , statin, beta-virgilio # Heart failure with reduced ejection fraction : 20 echo:Mildly dilated left ventricular cavity size. Moderately ?decreased left ventricular systolic function. Left ventricular ejection fraction is estimated at 30 %. Global left ventricular ?hypokinesis. Abnormal septal motion. Normal right ventricular size and systolic function. Aortic valve sclerosis with no stenosis. Moderate aortic valve regurgitation. Continue Lasix 40 mg IV daily Lisinopril 5 mg p.o. daily Continue beta-virgilio Intake output charting k>4,mg>2 She will also need to be on spironlactone #COPD: Continue duo nebs Solu-Medrol 40 IV daily Supplemental oxygen as needed #Bilateral small pleural effusion: Likely secondary to decompensated heart failure, less likely pneumonia. Ultrasound chest: Small bilateral pleural effusions with atelectatic mobile lung within the fluid She was on Zosyn initially for possible aspiration pneumonia during the code Antibiotic was narrowed down to ceftriaxone and has been discontinued after getting roughly 10 days course. #Hypertension: Lisinopril 5 mg p.o. daily Metoprolol.T #Disposition:[facility]int has been accepted at [facility], will be ready for discharge in next 24-48hrs. Family has been updated, as of now patient will need cardiology, pulmonary as well as PCP Follow up as outpatient. Daughter has expressed her desire to get a new PCP,community mental health social worker has been asked to facilitate getting a new PCP. Full code. Cardiac diet. Lovenox for DVTprophylaxis. Attestations Medical Necessity Statement*: Patient needs to be in hospital for the management of above defined problems.Needs for Volume optimization and need for I.V Diuresis.Anticipated discharge in next 24hrs. 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
[2021-12-03] MEDS: ipratropium-albuterol 3 mL Neb INHALATION ×2 (15:06→21:18)
[2021-12-03] MEDS: FUROsemide 10 mg/mL SDV 2mL 20 MG IVP (17:20)
[2021-12-03] MEDS: atorvastatin 40 mg Tablet PO (20:40)
[2021-12-04] VITALS (11 sets, daily range): BP systolic 127–148; BP diastolic 66–68; PULSE 63–86; RESP 15–19; TEMP 36.5–36.6; O2SAT 90–95
[2021-12-04] MEDS: ipratropium-albuterol 3 mL Neb INHALATION ×3 (03:03→15:21)
[2021-12-04 05:48] LABS: Basophils % 0.1 %; Eosinophils # 0.1 10^3/uL (0.0-0.8); Eosinophils % 0.5 %; Hematocrit 38.8 % (37.0-47.0); Hemoglobin 12.1 g/dL (11.5-15.3); Lymphocytes # 0.8 10^3/uL (0.8-4.8); Mean Corpuscular HGB Conc 31.2 g/dL (30.0-36.0); Mean Corpuscular Hemoglobin 29.3 pg (28.0-34.0); Mean Corpuscular Volume 93.9 fl (81-99); Mean Platelet Volume 10.9 fL (7.4-10.4); Monocytes # 0.9 10^3/uL (0.2-0.9); Monocytes % 5.9 %; Neutrophils # 13.14 10^3/uL (1.8-7.7); Neutrophils % 87.6 %; Nucleated Red Blood Cells % 0 %; Platelet Count 185 10^3/cmm (130-400); Red Blood Count 4.13 10^6/uL (4.1-5.3); Red Cell Distribution Width 15.4 % (12.1-15.1)
[2021-12-04] MEDS: FUROsemide 10 mg/mL SDV 4mL 40 MG IVP (06:21)
[2021-12-04 06:47] LABS: Anion Gap 12.9 (5-19); Blood Urea Nitrogen 25 mg/dL (8-23); Calcium 8.1 mg/dL (8.5-10.5); Carbon Dioxide 32 mmol/L (22-29); Chloride 98 mmol/L (98-107); Glucose 100 mg/dL (65-115); Osmolality Calculated 290 mOsm/kg (285-295); Potassium 4.9 mmol/L (3.5-5.1); Sodium 138 mmol/L (136-145)
[2021-12-04] MEDS: sucralfate 1 gm Tablet PO ×2 (06:52→11:36)
[2021-12-04 07:45] LABS: Adenovirus Not Detected (NOT DETECT); Chlamydia Pneumoniae Not Detected (NOT DETECT); Coronavirus 229E,HKU1,NL63,OC4 Not Detected (NOT DETECT); Human Metapneumovirus Not Detected (NOT DETECT); Human Rhinovirus/Enterovirus Not Detected (NOT DETECT); Influenza A Not Detected (NOT DETECT); Influenza A H1 Not Detected (NOT DETECT); Influenza A H1-2009 Not Detected (NOT DETECT); Influenza A H3 Not Detected (NOT DETECT); Influenza B Not Detected (NOT DETECT); Mycoplasma Pneumoniae Not Detected (NOT DETECT); Parainfluenza Virus Type 1 Not Detected (NOT DETECT); Parainfluenza Virus Type 2 Not Detected (NOT DETECT); Parainfluenza Virus Type 3 Not Detected (NOT DETECT); Parainfluenza Virus Type 4 Not Detected (NOT DETECT); Respiratory Syncytial Virus A Not Detected (NOT DETECT); Respiratory Syncytial Virus B Not Detected (NOT DETECT); SARS-COV-2 Not Detected (NOT DETECT)
[2021-12-04] MEDS: budesonide 0.5 mg/2 mL Neb INHALATION (09:03)
--- NOTE | 2021-12-04 09:13 | PM.PN ---
Subjective Subjective: Patient is doing well. Her breathing has improved. Vitals/I&O/Wt Last Vital Signs Temp 97.9 F 12/04/21 08:00 Pulse 76 12/04/21 09:12 Resp 17 12/04/21 09:03 BP 135/68 12/04/21 08:00 Pulse Ox 93 12/04/21 09:03 12/03/21 12/04/21 12/04/21 22:59 06:59 14:59 Intake Total 120 / 650 360 / 1010 Output Total 300 / 300 700 / 1000 Balance -180 / 350 -340 / 10 Weight last 48 hrs Weight 185 lb 3.2 oz Physical Exam Narrative: CONSTITUTIONAL: Alert and oriented x 3 HEENT: Normocephalic, atraumatic.[] RESPIRATORY:? Has bilateral mild crackles CARDIOVASCULAR: S1, S2, normal rate and rhythm GI: Soft EXTREMITIES: Has 1+ edema Urinary Catheter Management: Rubio: Cath Placed During This Visit: yes Reason for Continuing Indwelling Catheter: Other Urinary Catheter Date of Insertion: 11/22/21 Urinary Catheter Time of Insertion: 14:33 Data : 12/04/21 05:36 12/04/21 05:36 A&P Assessment and plan (1) Aspiration pneumonitis: Status: Acute (2) Acute kidney injury: (3) Cardiac arrest with ventricular fibrillation: Status: Acute (4) Chronic obstructive pulmonary disease: Qualifiers: COPD type: COPD with acute exacerbation Qualified Code(s): J44.1 - Chronic obstructive pulmonary disease with (acute) exacerbation (5) CHF (congestive heart failure): Status: Acute (6) Hypertension: Plan Patient had ventricular fibrillation requiring defibrillation with shock x1. She again had nonsustained VT. She has new onset congestive heart failure. No known coronary artery disease history. Coronary angiogram showed severe distal RCA stenosis that underwent successful revascularization with RATNA X1 . Renal function is stable. Continue IV lasix for now. O 2 requirement is still high and had small pleural effusions. Close I and Os. ICD placed for secondary prevention as had Vfib arrest and cardiomyopathy not explained by RCA stenosis. Continue aspirin and plavix for atleast 1 year ECHO shows EF of 30%. Thank you for involving us with care of this patient. Patient is ready to be discharged from cardiology standpoint. Please call with questions Attestations Medical Necessity Statement*: Care expected to cross 2 midnights. 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
[2021-12-04] MEDS: ferrous gluconate 324 mg Tablet PO (09:59)
[2021-12-04] MEDS: chlorhexidine gluconate 4% Btl 118 mL 1 APPLIC TOPICAL (10:00)
[2021-12-04] MEDS: aspirin 81 mg EC Tablet PO (10:00)
[2021-12-04] MEDS: amiodarone 200 mg Tablet PO (10:00)
[2021-12-04] MEDS: docusate sodium 100 mg Capsule PO (10:00)
[2021-12-04] MEDS: metoprolol tartrate 25 mg Tablet PO (10:01)
[2021-12-04] MEDS: lisinopril 5 mg Tablet PO (10:01)
[2021-12-04] MEDS: fluticasone nasal spray 16gm Btl 2 SPRAY NASAL (10:01)
[2021-12-04] MEDS: magnesium oxide 400 mg tablet PO (10:01)
[2021-12-04] MEDS: pantoprazole DR 40 mg Tablet PO (10:01)
[2021-12-04] MEDS: nicotine 21 mg Patch 1 PATCH TRANSDERMA (10:01)
[2021-12-04] MEDS: lidocaine 5% Patch 1 PATCH TOPICAL (10:01)
[2021-12-04] MEDS: potassium chloride ER 20 mEq Tablet 40 MEQ PO (10:01)
[2021-12-04] MEDS: predniSONE 20 mg Tablet 40 MG PO (10:02)
--- NOTE | 2021-12-04 11:48 | P.DS_ITS ---
Discharge Providers Date of Admission: 11/22/21 15:07 Date of Discharge: December 04, 2021 Attending Provider at Admission: Eileen Kearney MD Attending Provider at Discharge: Tashi Demarco MD Consults: Cardiology: Dr. Crawford CTSx: Dr. Ruff Primary Care Provider: Kelley Jimenez MD Diagnoses at Discharge Discharge Diagnosis (1) Cardiac arrest with successful resuscitation: Status: Acute (2) Cardiac arrest with ventricular fibrillation: Status: Acute (3) CAD (coronary artery disease): Status: Acute (4) CHF (congestive heart failure): Status: Acute (5) Chronic obstructive pulmonary disease: Status: Chronic Qualifiers: COPD type: COPD with acute exacerbation Qualified Code(s): J44.1 - Chronic obstructive pulmonary disease with (acute) exacerbation (6) Acute kidney injury: Status: Acute (7) Aspiration pneumonitis: Status: Acute (8) Hypertension: Status: Chronic (9) Nicotine dependence, cigarettes, with other nicotine-induced disorders: Status: Chronic Reason for Visit Reason for Visit: DIFFICULTY BREATHING/ EDEMA Brief History: History as per HPI: Surekha Villalobos is a 76 year old female who presented to the emergency room via EMS due to difficulty breathing.? Patient is a longtime smoker and has had some degree of shortness of breath and wheezing intermittently for soome time.? Never seemed to last too long.? She describes, however, her breathing getting slowly w orse over the past 6 months or so.? Over the last 3 months her breathing has more rapidly declined.? She resides in a typical single wide trailer and used to be able to walk around that trailer without difficulty or having to rest frequently.? Now she cannot even walk half the distance without having to stop, sometimes even a couple of times, to catch her breath on way to bathroom which is near the middle of the trailer.? She has been having increasing lower extremity edema, orthopnea and PND.? Sometime within the last month she was prescribed puffers by her report.? They have not really provided much help.? She has not been on recent steroids and antibiotics.? She has tried several over the counter options without success, including Breathe Right or similar strips.? She does describe some episodes of chest pain occurring after using her puffers but denies chest pain otherwise.? No reports of nausea or vomiting.? Has not had any recent fever or chills.? She has been COVID vaccinated.? Denied any history of COVID.? She lives alone and until recently has been able to take care of her activities of daily living with some assistance to go to store and the like.? She admits that she now spends most of her time sitting in a chair with her legs hanging down.? As her edema has worsened her breathing has worsened.? Today she says she is wore out from all of this prompting the ER visit.? On arrival to the emergency room, patient was noted to be tachycardic and hypoxic.? She is not chronically on oxygen but was requiring oxygen at 2 L flow.? She has never required oxygen previously.? Clinically she appeared to have fluid overload.? She was given some Lasix as well as breathing treatments and is being admitted for further care.? No personal history of coronary artery disease.? She does have a history of hypertension.? No recent medication changes beyond breathing medicines.? No known kidney disease.? Has not been diagnosed with heart failure in the past. Hospital Course Hospital Course She was admitted to the hospital further evaluation and management of acute hypoxia. On admission she was found to be in fluid overload. It is believed her symptoms are secondary to a combination of COPD exacerbation and congestive heart failure. She was started on aggressive IV diuresis along with inhalation treatment. Echocardiogram was done which showed an EF of 30% with global LV hypokinesia. Her hospitalization was complicated by her developing ventricular fibrillation arrest on 11/23. She achieved ROSC after 1 cycle of ACLS protocol chest compressions. Post event she was managed in ICU. Post arrest she developed acute kidney injury which was managed by managing her fluid status. Cardiology was consulted and she underwent cardiac angiogram on 11/24 after achieving euvolemia and resolution of her LUIS MIGUEL. She underwent PCI to RCA. Her hospitalization was further complicated by patient developing anxiety which was treated by anxiolytics. She was further diuresed aggressively with IV diuretics. CT surgery was consulted for possible AICD placement for secondary prevention given low EF and patient having V. fib arrest during this hospitalization. She underwent ICD placement on 11/29. Her hospitalization was otherwise unremarkable. Given prolonged hospitalization and events patient had significant deconditioning hence further discharge planning were discussed in detail with patient and patient's family. They wanted patient to be placed to SNF for further rehabitation. She is been discharged in hemodynamically stable condition on heart failure regimen to SNF with advised to follow-up as an outpatient with specialist within next 1 month and a repeat CBC and BMP with a [facility] care provider within next 1 week. Physical Exam Narrative: Constitutional: Awake and alert, acutely and chronically ill-appearing, anxious HEENT: Normocephalic, atraumatic, extraocular movements are intact, pupils are equally round and reactive to light, nasopharynx is clear, oropharynx with moist mucous membranes, upper and lower dentures noted Neck: Supple, JVD noted up to the earlobe with prominent venous waves Respiratory: Inspiratory and expiratory wheezes noted bilaterally, mild supraclavicular retractions and intercostal retractions, no abdominal breathing, able to talk in complete sentences without difficulty in breathing, no pursed lip breathing appreciated, no nasal flaring, sitting up in bed. Increased dyspnea with supine positioning. Cardiovascular: Tachycardic, distant heart sounds obscured by pulmonary sounds, regular, no discernible murmurs or rubs 1+ radial pulses, dorsalis pedis pulses are weaker than radial pulses but palpable, brisk capillary refill is noted Abdomen: Soft, quite rounded in upright positioning in ER bed though not as discernible when laid more supine, bowel sounds, nontender : Normal external genitalia, minimal erythema in intertriginous areas more so on the right than the left, Rubio catheter noted with approximately 1700 mL of urine, clear and faintly yellow Extremities: 4+ pitting edema, no weeping noted, general tenderness in areas of edema, right lower extremity is slightly larger than left lower extremity at the mid ward but less than a centimeter difference, no appreciable focal calf tenderness or palpable cords, both feet are cool to touch but not cyanotic, clubbing noted Skin: Chronic stasis changes with some areas of desquamating skin appreciated, no areas of significant warmth, scattered erythema but not in a discernible pattern, no large areas of bruising appreciated Neuro: Speech clear, visual murillo appear grossly intact, face symmetric, speech is clear, handgrip is equal, sensation is intact and equal to light touch at both feet Psych: Seems down, affect consistent with current clinical condition Urinary Catheter Management: Rubio: Cath Placed During This Visit: yes Reason for Continuing Indwelling Catheter: Other Urinary Catheter Date of Insertion: 11/22/21 Urinary Catheter Time of Insertion: 14:33 Discharge Data Studies Completed and Pending Completed Studies During Hospitalization Category Date Time Status CTA chest [CT angio chest PE protcl [id number]] Routine Cat Scan 11/23/21 06:00 Completed CXRP [XR chest 1V portable [id number]] Stat Exams 11/28/21 01:43 Completed XR chest 1V portable [id number] Routine Exams 11/25/21 06:26 Completed XR chest 1V portable [id number] Routine Exams 11/29/21 16:27 Completed XR chest 1V portable [id number] Routine Exams 12/03/21 06:00 Completed XR chest 1V portable [id number] Stat Exams 11/22/21 11:40 Completed XR chest 1V portable [id number] Stat Exams 11/23/21 17:00 Completed US chest [id number] Routine Ultrasound 11/28/21 07:56 Completed US echo complete [CV. echo complete* [id number]] Routine Ultrasound 11/22/21 16:27 Completed US renal BI* [id number] Routine Ultrasound 11/24/21 12:37 Completed Pending at discharge Category Date Time Status [employer] request for service Routine Exams 11/24/21 13:31 Taken ABG FULL [Arterial Blood Gas Full] Stat Lab 11/28/21 01:35 Results BMP [Basic Metabolic Panel] AM LABS Lab 12/05/21 04:00 Ordered CBC Auto Diff [Complete Blood Count w/Auto] AM LABS Lab 12/05/21 04:00 Ordered Radiology Impressions Chest CTA 11/23/21 06:00 IMPRESSION: 1. No evidence of pulmonary embolus. 2. Cardiomegaly. Coronary artery calcification. 3. Findings consistent with congestive heart failure with small effusions and mild interstitial edema. Renal Ultrasound 11/24/21 12:37 IMPRESSION: 1. Benign cyst lower pole right kidney. 2. Negative exam of the left kidney 3. Urinary bladder is not visible Chest Ultrasound 11/28/21 07:56 IMPRESSION: Small bilateral pleural effusions with atelectatic mobile lung within the fluid. C-Arm Fluoroscopy 11/29/21 10:33 Impression: Insertion of cardiac pacemaker wire. Chest X-Ray 12/03/21 06:00 IMPRESSION: 1. Bibasilar opacities which could be secondary to atelectasis or pneumonia. 2. Congestive heart failure. 3. Small bilateral pleural effusions. Echocardiogram: CONCLUSIONS ?1. Mildly dilated left ventricular cavity size. Moderately?decreased left ventricular systolic function. Left ventricular?ejection fraction is estimated at 30 %. Global left ventricular?hypokinesis. Abnormal septal motion. ?2. Normal right ventricular size and systolic function. ?3. Aortic valve sclerosis with no stenosis. Moderate aortic?valve regurgitation. ?4.? No prior similar studies to compare. ?Daisy Campoverde MD ?(Electronically Signed) ?Final Date:? ? ? 23 November 2021 ? 13:51 S Laboratory Results WBC 15.0 10^3/uL (4.0-10.0) H 12/04/21 05:36 Corrected WBC Cancelled 11/27/21 04:05 RBC 4.13 10^6/uL (4.1-5.3) 12/04/21 05:36 Hgb 12.1 g/dL (11.5-15.3) 12/04/21 05:36 Hct 38.8 % (37.0-47.0) 12/04/21 05:36 MCV 93.9 fl (81-99) 12/04/21 05:36 MCH 29.3 pg (28.0-34.0) 12/04/21 05:36 MCHC 31.2 g/dL (30.0-36.0) 12/04/21 05:36 RDW 15.4 % (12.1-15.1) H 12/04/21 05:36 Plt Count 185 10^3/cmm (130-400) 12/04/21 05:36 MPV 10.9 fL (7.4-10.4) H 12/04/21 05:36 Gran % Cancelled 11/27/21 04:05 Neut % (Auto) 87.6 % 12/04/21 05:36 Lymph % (Auto) 5.0 % 12/04/21 05:36 [place] % (Auto) 5.9 % 12/04/21 05:36 Eos % (Auto) 0.5 % 12/04/21 05:36 Baso % (Auto) 0.1 % 12/04/21 05:36 Neut # (Auto) 13.14 10^3/uL (1.8-7.7) H 12/04/21 05:36 Lymph # (Auto) 0.8 10^3/uL (0.8-4.8) 12/04/21 05:36 [place] # (Auto) 0.9 10^3/uL (0.2-0.9) 12/04/21 05:36 Eos # (Auto) 0.1 10^3/uL (0.0-0.8) 12/04/21 05:36 Baso # (Auto) 0.0 10^3/uL (0.0-0.1) 12/04/21 05:36 Absolute Gran (auto) Cancelled 11/27/21 04:05 Nucleated RBC % (auto) 0 % 12/04/21 05:36 Nucleated RBCs # 0.0 /100WBC 12/04/21 05:36 PT 14.30 SECONDS (12.1-14.9) 11/23/21 17:00 INR 1.08 (0.8-1.2) 11/23/21 17:00 APTT 31.6 SECONDS (23.9-36.7) D 11/24/21 21:20 D-Dimer 2.60 ug/mIFEU (0-0.59) H 11/23/21 17:00 Specimen Type Arterial 11/28/21 01:35 Sample Site Brachial,right 11/28/21 01:35 ABG pH 7.47 (7.35-7.45) H 11/28/21 01:35 ABG pCO2 53.8 mmHg (35-45) H 11/28/21 01:35 ABG pO2 64.8 mmHg (80.0-100.0) L 11/28/21 01:35 ABG HCO3 39.5 mmol/L (22-26) H 11/28/21 01:35 ABG O2 Saturation 94 11/28/21 01:35 ABG Base Excess 13.6 mmol/L (-2.0-2.0) H 11/28/21 01:35 Tenzin Test N/a 11/28/21 01:35 A-a O2 Gradient 69.9 mmHg (5-10) H 11/23/21 16:52 Hematocrit 39.1 % (37-47) 11/28/21 01:35 Hgb O2 Saturation 94.0 % (95-100) L 11/28/21 01:35 Carboxyhemoglobin 1.5 %THgb (0.4-20.1) 11/28/21 01:35 Methemoglobin 0.9 % (0.4-1.5) 11/28/21 01:35 Total Hemoglobin 12.8 g/dL (12-16) 11/28/21 01:35 Sodium 140.0 mmol/L (131-143) 11/28/21 01:35 Potassium 3.5 mmol/L (3.5-5.0) 11/28/21 01:35 Glucose 97.0 mg/dL (70-115) 11/28/21 01:35 Ionized Calcium 1.2 mmol/L (1.1-1.4) 11/28/21 01:35 O2 Delivery Device Bipap 11/28/21 01:35 O2 Liters/Min 15.0 % 11/23/21 16:52 FiO2 40.0 % 11/28/21 01:35 Mode BiPAP 16/6 11/28/21 01:35 Industrial Retrofit Designer ID Hinja 11/28/21 01:35 Sodium 138 mmol/L (136-145) 12/04/21 05:36 Potassium 4.9 mmol/L (3.5-5.1) 12/04/21 05:36 Chloride 98 mmol/L (98-107) 12/04/21 05:36 Carbon Dioxide 32 mmol/L (22-29) H 12/04/21 05:36 Anion Gap 12.9 (5-19) 12/04/21 05:36 BUN 25 mg/dL (8-23) H 12/04/21 05:36 Creatinine 0.9 mg/dL (0.5-0.9) 12/04/21 05:36 GFR Calculation Not Reportable 12/04/21 05:36 Glucose 100 mg/dL (65-115) 12/04/21 05:36 Estimat Average Glucose 114 11/24/21 05:05 Hemoglobin A1c 5.6 % (4.0-6.0) 11/24/21 05:05 Calculated Osmolality 290 mOsm/kg (285-295) 12/04/21 05:36 Lactate 2.9 mmol/L (0.5-2.2) H 11/23/21 17:30 Calcium 8.1 mg/dL (8.5-10.5) L 12/04/21 05:36 Phosphorus 4.5 mg/dL (2.5-4.5) 11/25/21 03:55 Magnesium 2.1 mg/dL (1.7-2.3) 11/29/21 04:43 Iron 28 ug/dL (37-145) L 11/23/21 05:04 TIBC 282 mcg/dl 11/23/21 05:04 % Saturation 9.9 % (20-50) L 11/23/21 05:04 Unsat Iron Binding 254 ug/dL (112-347) 11/23/21 05:04 Total Bilirubin 1.1 mg/dL (0.15-1.2) 11/27/21 06:02 AST 38 U/L (0-32) H 11/27/21 06:02 ALT 53 U/L (0-33) H 11/27/21 06:02 Alkaline Phosphatase 103 IU/L (35-105) 11/27/21 06:02 Troponin T Gen 5 ng/L 103 ng/L (0-10) H* 11/28/21 02:12 Troponin T Baseline 60 ng/L (0-10) H 11/23/21 22:57 Troponin T 120 Minute 73.49 ng/L (0-10) H 11/24/21 01:00 Delta Troponin T 13.49 ABS# (0-10) H* 11/24/21 01:00 Troponin T Hi Sens 6Hr 69.55 ng/L (0-10) H 11/24/21 05:05 Troponin T Hi Sens 6Hr Delta 9.55 ng/L (0-12) 11/24/21 05:05 C-Reactive Protein 8.0 mg/L (0.0-4.9) H 11/23/21 17:00 NT-Pro-B Natriuret Pep 35461 pg/mL (0-450) H 11/28/21 02:12 Total Protein 5.9 g/dL (6.6-8.7) L 11/27/21 06:02 Albumin 3.8 g/dL (3.5-5.2) 11/27/21 06:02 Globulin 2.1 g/dL (1.3-4.6) 11/27/21 06:02 Triglycerides 62 mg/dL (0-150) 11/23/21 05:04 Triglycerides Cancelled 11/23/21 05:04 Cholesterol 145 mg/dL (0-200) 11/23/21 05:04 Cholesterol Cancelled 11/23/21 05:04 LDL Cholesterol, Calc 87 mg/dL (50-129) 11/23/21 05:04 LDL Cholesterol, Calc Cancelled 11/23/21 05:04 HDL Cholesterol 46 mg/dL (60-100) L 11/23/21 05:04 HDL Cholesterol Cancelled 11/23/21 05:04 LDL/HDL Ratio 1.89 RATIO (0.00-3.22) 11/23/21 05:04 LDL/HDL Ratio Cancelled 11/23/21 05:04 Cholesterol/HDL Ratio 3.15 mg/dL (0.0-4.40) 11/23/21 05:04 Cholesterol/HDL Ratio Cancelled 11/23/21 05:04 Procalcitonin 0.19 ng/mL (0-0.5) 11/24/21 05:05 TSH 0.85 uIU/mL (0.27-4.20) 11/23/21 05:04 Urine Color Yellow (Yellow) 11/24/21 17:00 Urine Appearance Clear (CLEAR) 11/24/21 17:00 Urine pH 6.5 (5-7) 11/24/21 17:00 Ur Specific [place] 1.005 (1.005-1.030) 11/24/21 17:00 Urine Protein 1+ (Negative) H 11/24/21 17:00 Urine Glucose (UA) Norm (Normal) 11/24/21 17:00 Urine Ketones Negative (Negative) 11/24/21 17:00 Urine Blood 2+ (Negative) H 11/24/21 17:00 Urine Nitrate Negative (Negative) 11/24/21 17:00 Urine Bilirubin Neg (Negative) 11/24/21 17:00 Urine Urobilinogen Norm mg/dL (Negative) 11/24/21 17:00 Ur Leukocyte Esterase Negative (Negative) 11/24/21 17:00 Urine RBC 0-4 /hpf (0-2) H 11/24/21 17:00 Urine WBC 0-4 /hpf (0-5) H 11/24/21 17:00 Ur Squamous Epith Cells 0-4 /hpf (0-5) H 11/24/21 17:00 Amorphous Sediment 1+ /hpf 11/24/21 17:00 Urine Bacteria Trace /hpf (NONE) 11/24/21 17:00 Ur Random Sodium 11 mmol/L 11/24/21 17:00 Ur Random Potassium 50 mmol/L 11/24/21 17:00 Ur Random Chloride < 10 mmol/L 11/24/21 17:00 Urine Creatinine 100 mg/dL (28-217) 11/24/21 17:00 Coronavirus 229E (PCR) Not detected (NOT DETECT) 12/04/21 03:57 SARS-CoV-2 (PCR) Not detected (NOT DETECT) 12/04/21 03:57 Vitals Last Vital Signs Temp 97.9 F 12/04/21 08:00 Pulse 76 12/04/21 09:12 Resp 17 12/04/21 09:03 BP 135/68 12/04/21 08:00 Pulse Ox 93 12/04/21 09:03 Discharge Plan Discharge Patient Disposition: Xfer SNF Condition: Stable Prescriptions: New cephalexin 500 mg capsule 500 mg PO Q8H Qty: 6 0RF atorvastatin 40 mg Tablet 40 mg PO BEDTIME Qty: 30 0RF amiodarone [Pacerone] 200 mg Tablet 200 mg PO BID Qty: 60 0RF sucralfate 1 gram Tablet 1 g PO AC&BEDTIME 30 Days Qty: 90 0RF prednisone 20 mg Tablet 40 mg PO DAILY 5 Days Qty: 10 0RF aspirin 81 mg Tablet,Delayed Release (Dr/Ec) 81 mg PO DAILY Qty: 30 0RF potassium chloride [Klor-Con M20] 20 mEq Tablet,Er Particles/Crystals 40 meq PO DAILY Qty: 30 0RF pantoprazole 40 mg Tablet,Delayed Release (Dr/Ec) 40 mg PO DAILY Qty: 30 0RF lisinopril 5 mg Tablet 5 mg PO DAILY 10 Days Qty: 60 0RF metoprolol tartrate 25 mg Tablet 25 mg PO BID@0900,2100 30 Days Qty: 60 0RF ferrous gluconate 324 mg (37.5 mg iron) Tablet 324 mg PO BIDWM Qty: 60 0RF Continued Spiriva Respimat 1.25 mcg/actuation mist 2 puff inhalation DAILY Qty: 4 8RF cholecalciferol (vitamin D3) 50 mcg (2,000 unit) capsule 50 mcg PO DAILY 0RF calcium carbonate [Calcium 600] 600 mg calcium (1,500 mg) tablet 1,200 mg PO BEDTIME 0RF coenzyme Q10 [Co Q-10] 100 mg capsule 100 mg PO QAM 0RF niacin 1 tab PO QAM 0RF multivitamin Tablet 1 tab PO DAILY 0RF vitamin B complex Tablet 1 tab PO DAILY 0RF Vitamin B-12 1 tab PO DAILY 0RF budesonide-formoterol [Symbicort] 160-4.5 mcg/actuation HFA aerosol inhaler 2 puff inhalation BID Qty: 10.2 8RF Discontinued albuterol sulfate [ProAir HFA] 90 mcg/actuation HFA aerosol inhaler 1 inh inhalation QID PRN (Reason: shortness of breath or wheezing) Qty: 8.5 8RF cinnamon bark 500 mg capsule 500 mg PO .EIGHT TIMES A DAY 0RF ciaran (Zingiber officinalis) 550 mg Capsule 550 mg PO DAILY 0RF aspirin 325 mg Tablet 325 mg PO DAILY 0RF Green Tea Capsule 1 cap PO DAILY 0RF ginkgo biloba 1 tab PO DAILY 0RF Discharge Orders: Discharge Order (Routine); Ordered 12/04/21 Ordered By: Tashi Demarco Referrals: Kelley Jimenez MD [Primary Care Provider] - Jona Crawford M.D [Physician] - 1 month Diamond Kenney FNP [Nurse Practitioner] - 1 week Ria Johnson MD [Physician] - 1 week Discharge Diet: Cardiac Discharge Activity: Increase activity as tolerated Patient Instructions: Opioid Safety Activity Restrictions/Additional Instructions: Please follow-up with a primary care provider and specialist onsite appointment. Please check your blood pressure daily and maintain a blood pressure diary follow-up with primary care provider for further adjustment of antihypertensives. Please repeat CBC and BMP in next 1 week. Discharge Attestations Time Spent in Discharge Care*: greater than 30 min Specific Discharge Activities: educating patient, educating and/or supporting family/caregiver, discussing with pcp/other providers, discussing with senior case manager/social workers/dc planners, documenting/other paperwork and evaluating patient/reviewing data Time Spent in Smoking Cessation: more than 10 minutes Status at Discharge: Cognitive status at discharge: cognitively intact , Behavioral status at discharge: cooperative , Functional status at discharge: uses cane/walker , Overall status at discharge: patient is progressing back to baseline Quality Metrics Clinical Quality Measures [ No reported AMI, CVA or VTE this stay] Coding Level of Care Code Acute Chg FW DC note Diagnoses Cardiac arrest with successful resuscitation I46.9 Cardiac arrest with ventricular fibrillation I46.9; I49.01 CAD (coronary artery disease) I25.10 CHF (congestive heart failure) I50.9 Chronic obstructive pulmonary disease J44.1 COPD type: COPD with acute exacerbation Acute kidney injury N17.9 Aspiration pneumonitis J69.0 Hypertension I10 Nicotine dependence, cigarettes, with other nicotine-induced disorders F17.218
--- NOTE | 2021-12-04 14:14 | PC.NURSE ---
Report called to Benjy Trinidad RN. Dr. Demarco notified at this time via telephone on indwelling ramsey catheter. New orders received to discontinue at this time. Patient updated of new orders.
== END 2021-12-04 15:56 | disposition skilled nursing facility (03) | DRG 222 ==
LOC: ER 12:11 → CSU 16:10 → ICU 11-23 17:21 → MEDSURG 11-27 20:36
PROVIDERS: Internal Medicine; Thoracic Surgery (Cardiothoracic Vascular Surgery); Admitting Provider Hospitalist; Emergency Provider Family Medicine; PCP Family Medicine; Visit Provider Student in an Organized Health Care Education/Training Program
PROC: B211YZZ Fluoroscopy of Multiple Coronary Arteries using Other Contrast (ICD-10-PCS; principal; 2021-11-24 13:45)
PROC: B211YZZ Fluoroscopy of Multiple Coronary Arteries using Other Contrast (ICD-10-PCS; 2021-11-24 13:45)
PROC: 0JH608Z Insertion of Defibrillator Generator into Chest Subcutaneous Tissue and Fascia, Open Approach (ICD-10-PCS; CPT 33249; principal; 2021-11-29 14:00)
DX: I11.0 Hypertensive heart disease with heart failure (principal); I50.23 Acute on chronic systolic (congestive) heart failure; I46.9 Cardiac arrest, cause unspecified; I49.01 Ventricular fibrillation; J69.0 Pneumonitis due to inhalation of food and vomit; J44.1 Chronic obstructive pulmonary disease with (acute) exacerbation; N17.9 Acute kidney failure, unspecified; M81.0 Age-related osteoporosis without current pathological fracture; F17.210 Nicotine dependence, cigarettes, uncomplicated; Z96.651 Presence of right artificial knee joint; Z96.641 Presence of right artificial hip joint; E87.6 Hypokalemia; I42.9 Cardiomyopathy, unspecified; I25.10 Atherosclerotic heart disease of native coronary artery without angina pectoris
CPT/HCPCS: 36415; 36600; 51702; 71045; 71275; 76000; 76604; 76770; 80048; 80051; 80053; 80061; 81001; 81003; 82330; 82436; 82570; 82805; 83036; 83540; 83550; 83605; 83735; 83880; 84100; 84133; 84145; 84300; 84443; 84484; 85025; 85347; 85378; 85610; 85730; 86140; 86403; 87070; 87205; 87449; 87635; 87641; 93005; 93306; 93454; 94640; 94660; 96372; 96374; 96375; 97110; 97116; 97161; 97166; 97530; 99152; 99153; 99285; C1722; C1725; C1760; C1769; C1874; C1887; C1894; C9600; J0171; J0282; J0690; J0696; J1200; J1644; J1650; J1940; J2060; J2250; J2270; J2310; J2543; J2704; J2920; J2930; J3010; J3480; J3490; J7030; J7040; J7060; J7512; J7614; J7626; J7644; Q9967

== ENCOUNTER → 2021-12-12 12:18 | Outpatient (BNVA) | payer OTHER, MEDICARE, SELFPAY | PROVIDERS: PCP Family Medicine; Visit Provider Internal Medicine | DX: I25.10 Atherosclerotic heart disease of native coronary artery without angina pectoris (principal); Z95.810 Presence of automatic (implantable) cardiac defibrillator; I11.0 Hypertensive heart disease with heart failure; I50.9 Heart failure, unspecified | CPT/HCPCS: 80048; 83880; 99214 ==

== ENCOUNTER → 2021-12-25 09:32 | Outpatient (BNVA) | payer MEDICARE, OTHER, SELFPAY | PROVIDERS: PCP Family Medicine; Visit Provider Internal Medicine Critical Care Medicine | DX: J43.9 Emphysema, unspecified (principal); Z87.891 Personal history of nicotine dependence; I25.10 Atherosclerotic heart disease of native coronary artery without angina pectoris; I46.9 Cardiac arrest, cause unspecified; I49.01 Ventricular fibrillation; J96.11 Chronic respiratory failure with hypoxia; I25.5 Ischemic cardiomyopathy; I10 Essential (primary) hypertension | CPT/HCPCS: 99204 ==

== ENCOUNTER 2022-01-04 14:02 | Outpatient (CLI) | payer MEDICARE, OTHER, SELFPAY ==
--- NOTE | 2022-01-04 14:26 | PFTS_ITS ---
Date of Study:01/04/22 Date of Dictation: 01/05/2022 MECHANICS: Postbronchodilator forced vital capacity (FVC) is reduced. Postbronchodilator forced expiratory volume in one second (FEV1) is moderately reduced 54%. FEV1/FVC is reduced. There is significant response to bronchodilators. FLOW VOLUME LOOP: Sloping of expiratory limb suggestive of airflow obstruction LUNG VOLUMES: Not measured DIFFUSING CAPACITY FOR CARBON MONOXIDE: Severely reduced . INTERPRETATION: The spirometry consistent with moderate airflow obstruction. There is significant response to bronchodilators. Flow volume loop consistent with airflow obstruction. Lung volumes are not measured. There is severe gas transfer defect, somewhat out of proportion to spirometry findings. Constellation of findings consistent with obstructive lung disease and coexisting pulmonary vascular disease. Clinical correlation recommended. [facility]
== END 2022-01-04 14:03 | disposition home or self-care (01) ==
LOC: RT 14:04
PROVIDERS: PCP Family Medicine; Visit Provider Internal Medicine Critical Care Medicine
DX: J43.9 Emphysema, unspecified (principal)
CPT/HCPCS: 94060; 94729; J7611